=== PATIENT | male | born 1940 | race Caucasian/White ===

== ENCOUNTER → 2019-10-18 13:03 | Outpatient (BNVA) | payer MEDICARE, SELFPAY | PROVIDERS: Family Provider Family Medicine; PCP Family Medicine; Visit Provider Nurse Practitioner | DX: F41.1 Generalized anxiety disorder (principal); F33.42 Major depressive disorder, recurrent, in full remission | CPT/HCPCS: 99213 ==

== ENCOUNTER → 2020-04-03 07:47 | Outpatient (BNVA) | payer MEDICARE, SELFPAY | PROVIDERS: Family Provider Family Medicine; PCP Family Medicine; Visit Provider Nurse Practitioner | DX: F33.42 Major depressive disorder, recurrent, in full remission (principal); F41.1 Generalized anxiety disorder | CPT/HCPCS: 99213 ==

== ENCOUNTER → 2020-10-01 07:51 | Outpatient (BNVA) | payer MEDICARE, SELFPAY | PROVIDERS: Family Provider Family Medicine; PCP Family Medicine; Visit Provider Nurse Practitioner | DX: F33.42 Major depressive disorder, recurrent, in full remission (principal); F41.1 Generalized anxiety disorder | CPT/HCPCS: 99213 ==

== ENCOUNTER → 2021-03-20 08:13 | Outpatient (BNVA) | payer MEDICARE, SELFPAY | PROVIDERS: Family Provider Family Medicine; PCP Family Medicine; Visit Provider Nurse Practitioner | DX: F33.42 Major depressive disorder, recurrent, in full remission (principal); F41.1 Generalized anxiety disorder | CPT/HCPCS: 99214 ==

== ENCOUNTER → 2021-05-14 12:36 | Outpatient (BNVA) | payer MEDICARE, SELFPAY | PROVIDERS: Family Provider Family Medicine; PCP Family Medicine; Visit Provider Nurse Practitioner | DX: G62.9 Polyneuropathy, unspecified (principal); R29.898 Other symptoms and signs involving the musculoskeletal system; F41.1 Generalized anxiety disorder | CPT/HCPCS: 36415; 82550; 82607; 82746; 83921; 84260; 84443; 86140; 86431; 99204 ==

== ENCOUNTER 2021-05-14 13:51 | Outpatient (CLI) | payer MEDICARE, SELFPAY ==
[2021-05-14 15:46] LABS: C Reactive Protein 2.7 mg/L (0.0-4.9); Creatine Phosphokinase 71 U/L (39-308)
[2021-05-14 19:14] LABS: Vitamin B12 > 2000 pg/mL (232-1245)
[2021-05-14 21:11] LABS: Folate Level > 20.0 ng/mL (4.5-32.2)
[2021-05-17 16:02] LABS: Methylmalonic Acid 110 nmol/L (87-318)
== END 2021-05-14 13:52 | disposition home or self-care (01) ==
LOC: LAB 13:57
PROVIDERS: PCP Family Medicine; Visit Provider Nurse Practitioner
DX: G62.9 Polyneuropathy, unspecified (principal); R29.898 Other symptoms and signs involving the musculoskeletal system
CPT/HCPCS: 36415; 82550; 82607; 82746; 83921; 84260; 84443; 86140; 86431

== ENCOUNTER 2021-05-16 14:01 | Outpatient (CLI) | payer MEDICARE, SELFPAY ==
[2021-05-16 15:40] LABS: Erythrocyte Sedimentation Rate 10 mm/hr (0-10)
== END 2021-05-16 14:02 | disposition home or self-care (01) ==
LOC: LAB 14:10
PROVIDERS: PCP Family Medicine; Visit Provider Nurse Practitioner
DX: G62.9 Polyneuropathy, unspecified (principal); R29.898 Other symptoms and signs involving the musculoskeletal system
CPT/HCPCS: 85651

== ENCOUNTER → 2021-09-11 08:43 | Outpatient (BNVA) | payer MEDICARE, SELFPAY | PROVIDERS: PCP Family Medicine; Visit Provider Nurse Practitioner | DX: F41.1 Generalized anxiety disorder (principal); F33.42 Major depressive disorder, recurrent, in full remission | CPT/HCPCS: 99214 ==

== ENCOUNTER 2021-09-29 15:17 | Emergency (ER) | payer MEDICARE, SELFPAY ==
[2021-09-29 16:02] VITALS: BP 125/73; PULSE 68; RESP 16; TEMP 36.8; O2SAT 93; BMI 31.7
--- NOTE | 2021-09-29 16:23 | ED_ITS ---
Documented by User: LOY Sandra 09/30/21 07:03 HPI - Eye Problem General: Chief complaint: Eye Problems Stated complaint: L EYE SWELLING & BURNING/SENT FROM Time Seen by Provider: 09/29/21 16:08 Source: patient Mode of arrival: ambulatory Limitations: no limitations History of Present Illness: HPI Narrative: Patient is a nice 81-year-old male presents to ED today for evaluation of redness to his left eye. Patient states symptoms have been present over the past 2 weeks or so. He was initially seen by his PCP Dr. Garcia who placed him on ophthalmic abx drops. Patient was seen again for follow-up and was not improving. Dr. Botello sent patient to the ED for concerns of possible periorbital cellulitis. Patient states he is having some slight discomfort to the eye but states it is not painful (although mentions some pain in the mornings). No foreign body sensation. He has noticed mucopurulent matting in the mornings. No visual changes. No trauma. Patient is not a contact lens wearer. No facial lesions/rashes. MD chief complaint: eye redness Onset (ago): day(s) Onset description: gradual Place: home Mechanism: none Associated symptoms: Reports no associated symptoms; Denies fever(s), headache(s) or neck pain Related Data: Patient tetanus UTD: Yes Review of Systems Const: Denies: fever(s), chills, body aches, fatigue or malaise Eyes: Reports: eye discomfort, eye discharge and eye redness; Denies: change in vision, blind spots, photophobia, floaters or seeing flashes ENMT: Denies: throat pain, ear or mastoid pain, ear discharge, change in hearing, nasal discharge, nasal congestion or sinus pain Musc: Denies: neck pain Skin/Breast: Denies: rash Neuro: Denies: headache(s) PFSH ED PFSH: Medical History Generalized anxiety disorder Major depressive disorder, recurrent, in full remission Weakness of lower extremity Social History Smoking and tobacco status: never smoked Alcohol intake: never History of recent travel: No Physical Exam Const: COMMON NORMALS: no acute distress, patient oriented x3, no limitations, healthy appearing and alert GENERAL APPEARANCE: cooperative HENMT: COMMON NORMALS: normocephalic and atraumatic HEAD & SCALP: normal to inspection, normocephalic and atraumatic FACE & SINUS: normal facial exam Eye: COMMON NORMALS: Equal, round and reactive pupils present and EOMs intact bilaterally GENERAL EYE: normal light reflex VISUAL ACUITY: Yes acuity normal ALIGNMENT: Yes alignment normal PERIORBITAL: periorbital findings normal EYELID: eyelids normal CONJUNCTIVA: Yes conjunctival abnormal positive left conjunctival chemosis and conjunctival injection CORNEA: Yes fluorescein used and other (corneal lesions visualized ) PUPIL: Yes Equal, round and reactive pupils present DIRECT OPHTHALMOSCOPY: Yes normal light reflex OTHER: mucopurulent drainage noted; patient has multiple (three) obvious opacities on his cornea that are readily visible without fluorescein stain; stain was used at end of exam and these lesions did exhibit stain uptake- no dendritic or branching pattern; no hypopyon or hyphema Neuro: COMMON NORMALS: patient oriented x3 SENSORIUM/ORIENTATION: Yes alert Course Vital Signs: Vital signs: Vital Signs Temperature 98.3 F 09/29/21 16:02 Pulse Rate 68 09/29/21 16:02 Respiratory Rate 16 09/29/21 16:02 Blood Pressure 125/73 09/29/21 16:02 Pulse Oximetry 93 09/29/21 16:02 MDM - Eye Problem Lab Data: Labs: Lab Results 09/29/21 17:00 Sodium 137 mmol/L mmol/L (136-145) Potassium 4.7 mmol/L mmol/L (3.5-5.1) Chloride 100 mmol/L mmol/L (98-107) Carbon Dioxide 28 mmol/L mmol/L (22-29) Anion Gap 13.7 (5-19) BUN 10 mg/dL mg/dL (8-23) Creatinine 0.7 mg/dL mg/dL (0.7-1.2) GFR Calculation Not Reportable Glucose 132 mg/dL H mg/dL (65-115) Calculated Osmolal ity 285 mOsm/kg mOsm/ kg (285-295) Calcium 8.8 mg/dL mg/dL (8.5-10.5) Discharge Plan Discharge Patient Disposition: Home Clinical Impression: Keratitis Condition: Stable Prescriptions: New TobraDex 0.3-0.1 % drops,suspension 1 drp ophthalmic (eye) Q6H 7 Days Qty: 10 RF: 0 No Action clonazepam [Klonopin] 0.5 mg tablet 0.5 mg PO BID PRN (Reason: anxiety) Qty: 60 RF: 5 paroxetine HCl [Paxil] 40 mg tablet 40 mg PO QAM Qty: 30 RF: 5 mirtazapine [Remeron] 30 mg tablet 30 mg PO .at bed Qty: 30 RF: 5 paroxetine HCl [Paxil] 10 mg tablet 10 mg PO DAILY Qty: 30 RF: 5 hydroxyzine HCl 50 mg tablet 50 mg PO TID PRN (Reason: anxiety) Qty: 90 RF: 5 nadolol 20 mg tablet 20 mg PO DAILY RF: 0 amlodipine 5 mg tablet 5 mg PO DAILY RF: 0 metformin 500 mg tablet 1,000 mg PO DAILY RF: 0 polymyxin B sulf-trimethoprim 10,000 unit- 1 mg/mL drops 1 drp ophthalmic (eye) Q3H 10 Days Qty: 10 RF: 1 gabapentin 300 mg capsule 300 mg PO TID Qty: 90 RF: 2 Discharge Orders: Discharge ED (Routine); Ordered 09/29/21 Ordered By: Memo Acosta Referrals: Jaswinder Sorensen MD [Primary Care Provider] - Discharge Diet: Regular Discharge Activity: Resume usual activity Patient Instructions: Antibiotic/Anti-inflammatory Combinations (Into the eye)..., Keratitis (ED) Activity Restrictions/Additional Instructions: Follow-up with medical provider as directed. Contact [facility] on October 06 and have them see you that day for further evaluation. If you have any pain or worsening of symptoms after using new prescription, I drop stopped taking eyedrops immediately and can contact [employer] Dr. Yusuf for evaluation. take medications as prescribed. Return to the ER or your medical provider if condition worsens. Please read and understand discharge instructions. Thank you for choosing [facility] for your healthcare needs today. Please realize this is an emergency room and that we are providing you with a medical screening exam and this may not be complete and all inclusive of all the testing and or work up that you may need to determine your ailment or severity of your illness. It is very important that you follow up as instructed or that you return to the Emergency Department should you have concerns or if your condition changes or worsens in any way. Sign Out Sign Out Data: Patient Sign Out occurred on 09/29/21 at 17:23. Patient's care was discussed, and care was transferred from to LOY Wang. Coding Level of Care Code ED Tool Grinding Machine Operator for Chg Fwd Exam Expanded Problem Focused Documented by User: LOY Wang 09/30/21 02:22 HPI - Eye Problem General: Chief complaint: Eye Problems Stated complaint: L EYE SWELLING & BURNING/SENT FROM Time Seen by Provider: 09/29/21 16:08 [facility] ED PFSH: Medical History Generalized anxiety disorder Major depressive disorder, recurrent, in full remission Weakness of lower extremity Social History Smoking and tobacco status: never smoked Alcohol intake: never History of recent travel: No Course Consultations: Consultation #1: I contacted Grabiel the physician workforce development assistant for [facility]. I told him about patient case. He recommended switching patient to an eyedrop that has an antibiotic and a steroid, Such as tobramycin. He said that they will be back at the [facility] on Wednesday, October 06 and he would be glad to see patient then. Vital Signs: Vital signs: Vital Signs Temperature 98.3 F 09/29/21 16:02 Pulse Rate 68 09/29/21 16:02 Respiratory Rate 16 09/29/21 16:02 Blood Pressure 125/73 09/29/21 16:02 Pulse Oximetry 93 09/29/21 16:02 MDM - Eye Problem MDM Narrative: Medical decision making narrative: Patient is a 81-year-old male comes to the ED with left eye redness and mucopurulent drainage. Denies any injury, trauma or foreign body. Denies any vision changes. Symptoms started 2 weeks ago when he was put on a polymyxin trymethoprin and after using eyedrops there is no improvement. Patient was sent by his PCP Dr. Garcia to have CT of iodine. Candida Dong the physician workforce development assistant saw patient initially and performed the history, physical exam and work-up. Exam of eyes showed some visible lesions did exhibit stain uptake but no branching or dendritic pattern noted. Findings were suggestive of keratitis. Labs were unremarkable. CT orbit bilaterally with contrast showed no acute findings. I contacted Grabiel the physician workforce development assistant for [facility] and spoke with him about patient case. He recommended switching patient to an eyedrop that has an antibiotic and a steroid such as TobraDex. He told me to have patient follow-up with him at [facility] on October 06. Patient diagnosed with keratitis and sent home with a prescription for TobraDex. Return to ED precautions given. Patient understood agree with plan. Lab Data: Attestation: I reviewed the patient's lab results. Labs: Lab Results 09/29/21 17:00 Sodium 137 mmol/L mmol/L (136-145) Potassium 4.7 mmol/L mmol/L (3.5-5.1) Chloride 100 mmol/L mmol/L (98-107) Carbon Dioxide 28 mmol/L mmol/L (22-29) Anion Gap 13.7 (5-19) BUN 10 mg/dL mg/dL (8-23) Creatinine 0.7 mg/dL mg/dL (0.7-1.2) GFR Calculation Not Reportable Glucose 132 mg/dL H mg/dL (65-115) Calculated Osmolal ity 285 mOsm/kg mOsm/ kg (285-295) Calcium 8.8 mg/dL mg/dL (8.5-10.5) Imaging Data^: Other CT: Attestation: I personally reviewed and interpreted this imaging study as follows: Radiologist's impression: [address] [address] [address] Scan Report Signed Patient: Juan Carlos Velázquez Unit #: [id number] : 1940 Age/Sex: 81 / M ADM Date: 09/29/21 Loc: ER Room/Bed: Attending Dr: Ordering Provider/Ordering MD: Candida Dong Date of Service: 09/29/21 Procedure(s): CT orbit BI w siva [id number] Accession Number(s): [id number] Report Number: [id number] PROCEDURE INFORMATION: Exam: CT Orbits With Contrast Exam date and time: 09/29/2021 4:30 PM Age: 81 years old Clinical indication: Mass, lump, or swelling; Other: Left orbit; Additional info: L eye redness/swelling TECHNIQUE: Imaging protocol: Computed tomography images of the orbits with intravenous contrast. Radiation optimization: All CT scans at this facility use at least one of these dose optimization techniques: automated exposure control; mA and/or kV adjustment per patient size (includes targeted exams where dose is matched to clinical indication); or iterative reconstruction. Contrast material: OMNI 300; Contrast volume: 95 ml; Contrast route: INTRAVENOUS (IV); COMPARISON: No relevant prior studies available. RADIATION DOSE METRICS: Total DLP (mGy-cm): 380.35 FINDINGS: Orbital cavity: Orbits are normal. Globes are unremarkable. Paranasal sinuses: Normal. No air-fluid levels. Bones/joints: No acute fracture. Soft tissues: No significant facial soft tissue swelling. CT/[place] [id number] IMPRESSION: No acute findings. Dictated By: Zaki Preston Signed By: Zaki Preston Signed Date/Time: 09/29/21 1909 DD/ 1630 Discharge Plan Discharge Patient Disposition: Home Clinical Impression: Keratitis Condition: Stable Prescriptions: New TobraDex 0.3-0.1 % drops,suspension 1 drp ophthalmic (eye) Q6H 7 Days Qty: 10 RF: 0 No Action clonazepam [Klonopin] 0.5 mg tablet 0.5 mg PO BID PRN (Reason: anxiety) Qty: 60 RF: 5 paroxetine HCl [Paxil] 40 mg tablet 40 mg PO QAM Qty: 30 RF: 5 mirtazapine [Remeron] 30 mg tablet 30 mg PO .at bed Qty: 30 RF: 5 paroxetine HCl [Paxil] 10 mg tablet 10 mg PO DAILY Qty: 30 RF: 5 hydroxyzine HCl 50 mg tablet 50 mg PO TID PRN (Reason: anxiety) Qty: 90 RF: 5 nadolol 20 mg tablet 20 mg PO DAILY RF: 0 amlodipine 5 mg tablet 5 mg PO DAILY RF: 0 metformin 500 mg tablet 1,000 mg PO DAILY RF: 0 polymyxin B sulf-trimethoprim 10,000 unit- 1 mg/mL drops 1 drp ophthalmic (eye) Q3H 10 Days Qty: 10 RF: 1 gabapentin 300 mg capsule 300 mg PO TID Qty: 90 RF: 2 Discharge Orders: Discharge ED (Routine); Ordered 09/29/21 Ordered By: Memo Acosta Referrals: Jaswinder Sorensen MD [Primary Care Provider] - Discharge Diet: Regular Discharge Activity: Resume usual activity Patient Instructions: Antibiotic/Anti-inflammatory Combinations (Into the eye)..., Keratitis (ED) Activity Restrictions/Additional Instructions: Follow-up with medical provider as directed. Contact [facility] on October 06 and have them see you that day for further evaluation. If you have any pain or worsening of symptoms after using new prescription, I drop stopped taking eyedrops immediately and can contact [facility] [facility] Dr. Yusuf for evaluation. take medications as prescribed. Return to the ER or your medical provider if condition worsens. Please read and understand discharge instructions. Thank you for choosing [facility] for your healthcare needs today. Please realize this is an emergency room and that we are providing you with a medical screening exam and this may not be complete and all inclusive of all the testing and or work up that you may need to determine your ailment or severity of your illness. It is very important that you follow up as instructed or that you return to the Emergency Department should you have concerns or if your condition changes or worsens in any way. Sign Out Sign Out Data: Patient Sign Out occurred on 09/29/21 at 17:23. Patient's care was discussed, and care was transferred from to LOY Wang. Coding Level of Care Code ED Tool Grinding Machine Operator for Chg Fwd Exam Expanded Problem Focused Documented by User: Tico Earl DO 09/30/21 10:13 HPI - Eye Problem General: Chief complaint: Eye Problems Stated complaint: L EYE SWELLING & BURNING/SENT FROM Time Seen by Provider: 09/29/21 16:08 [facility] ED PFSH: Medical History Generalized anxiety disorder Major depressive disorder, recurrent, in full remission Weakness of lower extremity Social History Smoking and tobacco status: never smoked Alcohol intake: never History of recent travel: No Course Vital Signs: Vital signs: Vital Signs Temperature 98.3 F 09/29/21 16:02 Pulse Rate 68 09/29/21 16:02 Respiratory Rate 16 09/29/21 16:02 Blood Pressure 125/73 09/29/21 16:02 Pulse Oximetry 93 09/29/21 16:02 MDM - Eye Problem MDM Narrative: Medical decision making narrative: Chart reviewed and patient discussed with midlevel. Agree with assessment and plan. Lab Data: Labs: Lab Results 09/29/21 17:00 Sodium 137 mmol/L mmol/L (136-145) Potassium 4.7 mmol/L mmol/L (3.5-5.1) Chloride 100 mmol/L mmol/L (98-107) Carbon Dioxide 28 mmol/L mmol/L (22-29) Anion Gap 13.7 (5-19) BUN 10 mg/dL mg/dL (8-23) Creatinine 0.7 mg/dL mg/dL (0.7-1.2) GFR Calculation Not Reportable Glucose 132 mg/dL H mg/dL (65-115) Calculated Osmolal ity 285 mOsm/kg mOsm/ kg (285-295) Calcium 8.8 mg/dL mg/dL (8.5-10.5) Discharge Plan Discharge Patient Disposition: Home Clinical Impression: Keratitis Condition: Stable Prescriptions: New TobraDex 0.3-0.1 % drops,suspension 1 drp ophthalmic (eye) Q6H 7 Days Qty: 10 RF: 0 No Action clonazepam [Klonopin] 0.5 mg tablet 0.5 mg PO BID PRN (Reason: anxiety) Qty: 60 RF: 5 paroxetine HCl [Paxil] 40 mg tablet 40 mg PO QAM Qty: 30 RF: 5 mirtazapine [Remeron] 30 mg tablet 30 mg PO .at bed Qty: 30 RF: 5 paroxetine HCl [Paxil] 10 mg tablet 10 mg PO DAILY Qty: 30 RF: 5 hydroxyzine HCl 50 mg tablet 50 mg PO TID PRN (Reason: anxiety) Qty: 90 RF: 5 nadolol 20 mg tablet 20 mg PO DAILY RF: 0 amlodipine 5 mg tablet 5 mg PO DAILY RF: 0 metformin 500 mg tablet 1,000 mg PO DAILY RF: 0 polymyxin B sulf-trimethoprim 10,000 unit- 1 mg/mL drops 1 drp ophthalmic (eye) Q3H 10 Days Qty: 10 RF: 1 gabapentin 300 mg capsule 300 mg PO TID Qty: 90 RF: 2 Discharge Orders: Discharge ED (Routine); Ordered 09/29/21 Ordered By: Memo Acosta Referrals: Jaswinder Sorensen MD [Primary Care Provider] - Discharge Diet: Regular Discharge Activity: Resume usual activity Patient Instructions: Antibiotic/Anti-inflammatory Combinations (Into the eye)..., Keratitis (ED) Activity Restrictions/Additional Instructions: Follow-up with medical provider as directed. Contact [facility] on October 06 and have them see you that day for further evaluation. If you have any pain or worsening of symptoms after using new prescription, I drop stopped taking eyedrops immediately and can contact [employer] [facility] Dr. Yusuf for evaluation. take medications as prescribed. Return to the ER or your medical provider if condition worsens. Please read and understand discharge instructions. Thank you for choosing [facility] for your healthcare needs today. Please realize this is an emergency room and that we are providing you with a medical screening exam and this may not be complete and all inclusive of all the testing and or work up that you may need to determine your ailment or severity of your illness. It is very important that you follow up as instructed or that you return to the Emergency Department should you have concerns or if your condition changes or worsens in any way. Sign Out Sign Out Data: Patient Sign Out occurred on 09/29/21 at 17:23. Patient's care was discussed, and care was transferred from to LOY Wang. Coding Level of Care Code ED Tool Grinding Machine Operator for Lenore Fwd Exam Expanded Problem Focused
--- NOTE | 2021-09-29 16:30 | CTR_ITS ---
PROCEDURE INFORMATION: Exam: CT Orbits With Contrast Exam date and time: 09/29/2021 4:30 PM Age: 81 years old Clinical indication: Mass, lump, or swelling; Other: Left orbit; Additional info: L eye redness/swelling TECHNIQUE: Imaging protocol: Computed tomography images of the orbits with intravenous contrast. Radiation optimization: All CT scans at this facility use at least one of these dose optimization techniques: automated exposure control; mA and/or kV adjustment per patient size (includes targeted exams where dose is matched to clinical indication); or iterative reconstruction. Contrast material: OMNI 300; Contrast volume: 95 ml; Contrast route: INTRAVENOUS (IV); COMPARISON: No relevant prior studies available. RADIATION DOSE METRICS: Total DLP (mGy-cm): 380.35 FINDINGS: Orbital cavity: Orbits are normal. Globes are unremarkable. Paranasal sinuses: Normal. No air-fluid levels. Bones/joints: No acute fracture. Soft tissues: No significant facial soft tissue swelling. CT/CT orbit w [facility] [id number] IMPRESSION: No acute findings.
[2021-09-29] MEDS: tetracaine 0.5% Op Soln 4 mL Btl 1 DROP EYE-LEFT (17:05)
[2021-09-29] MEDS: fluorescein 1 mg Strip EYE-LEFT (17:05)
[2021-09-29] MEDS: eye irrigation 30 mL Btl EYE-LEFT (17:05)
[2021-09-29 17:25] LABS: Anion Gap 13.7 (5-19); Blood Urea Nitrogen 10 mg/dL (8-23); Calcium 8.8 mg/dL (8.5-10.5); Carbon Dioxide 28 mmol/L (22-29); Chloride 100 mmol/L (98-107); Creatinine Clr Calc Pharmacy 84.8217; Glucose 132 mg/dL (65-115); Osmolality Calculated 285 mOsm/kg (285-295); Potassium 4.7 mmol/L (3.5-5.1); Sodium 137 mmol/L (136-145)
[2021-09-29] MEDS: iohexol 300 mg/mL 100 mL Btl IV (18:38)
== END 2021-09-29 19:36 | disposition home or self-care (01) ==
PROVIDERS: Physician Assistant; Emergency Provider Physician Assistant; PCP Family Medicine
DX: H16.9 Unspecified keratitis (principal); Z79.84 Long term (current) use of oral hypoglycemic drugs
CPT/HCPCS: 70481; 80048; 99283; Q9967

== ENCOUNTER → 2021-11-04 07:59 | Outpatient (BNVA) | payer MEDICARE, SELFPAY | PROVIDERS: PCP Family Medicine; Referring Provider Nurse Practitioner; Visit Provider Specialist | DX: D47.2 Monoclonal gammopathy (principal); G63 Polyneuropathy in diseases classified elsewhere | CPT/HCPCS: 95886; 95909; 99215 ==

== ENCOUNTER 2021-11-12 12:50 | Outpatient (CLI) | payer MEDICARE, SELFPAY ==
[2021-11-13 11:12] LABS: CREATININE, 24 HOUR URINE 1.07 g/24 h (0.50-2.15); PROTEIN, TOTAL, 24 HR UR 135 mg/24 h (<150); Protein/Creatinine Ratio 0.127 (< OR = 0.114); Protein/Creatinine Ratio 127 mg/g creat (< OR = 114)
[2021-11-14 09:07] LABS: ALBUMIN 100 %; ALPHA-1-GLOBULINS 0 %; ALPHA-2-GLOBULINS 0 %; BETA GLOBULINS 0 %; GAMMA GLOBULINS 0 %
== END 2021-11-12 12:51 | disposition home or self-care (01) ==
PROVIDERS: PCP Family Medicine; Visit Provider Specialist
DX: D72.9 Disorder of white blood cells, unspecified (principal)
CPT/HCPCS: 84156; 84166

== ENCOUNTER → 2022-02-10 15:06 | Outpatient (BNVA) | payer MEDICARE, SELFPAY | PROVIDERS: PCP Family Medicine; Visit Provider Specialist | DX: D47.2 Monoclonal gammopathy (principal); E11.40 Type 2 diabetes mellitus with diabetic neuropathy, unspecified; Z79.84 Long term (current) use of oral hypoglycemic drugs | CPT/HCPCS: 99215 ==

== ENCOUNTER → 2022-02-12 07:37 | Outpatient (BNVA) | payer MEDICARE, SELFPAY | PROVIDERS: PCP Family Medicine; Visit Provider Specialist | DX: G61.81 Chronic inflammatory demyelinating polyneuritis (principal); E11.9 Type 2 diabetes mellitus without complications; Z79.84 Long term (current) use of oral hypoglycemic drugs | CPT/HCPCS: 99213; 99214 ==

== ENCOUNTER → 2022-03-05 07:21 | Outpatient (BNVA) | payer MEDICARE, SELFPAY | PROVIDERS: PCP Family Medicine; Visit Provider Nurse Practitioner | DX: F41.1 Generalized anxiety disorder (principal); F33.42 Major depressive disorder, recurrent, in full remission | CPT/HCPCS: 99214 ==

== ENCOUNTER → 2023-04-20 15:24 | Outpatient (BNVA) | payer MEDICARE, SELFPAY | PROVIDERS: PCP Family Medicine; Visit Provider Specialist | DX: G61.81 Chronic inflammatory demyelinating polyneuritis (principal); D47.2 Monoclonal gammopathy | CPT/HCPCS: 99214 ==

== ENCOUNTER 2023-06-03 08:35 | Oncology outpatient (recurring) (ONCR) | payer MEDICARE, SELFPAY | END 2023-06-03 23:59 | disposition home or self-care (01) | PROVIDERS: PCP Family Medicine; Visit Provider Specialist | DX: Z53.9 Procedure and treatment not carried out, unspecified reason (principal) ==

== ENCOUNTER → 2023-06-11 10:12 | Outpatient (BNVA) | payer MEDICARE, SELFPAY | PROVIDERS: PCP Family Medicine; Referring Provider Specialist; Visit Provider Specialist | DX: G61.81 Chronic inflammatory demyelinating polyneuritis (principal); D47.2 Monoclonal gammopathy; G63 Polyneuropathy in diseases classified elsewhere | CPT/HCPCS: 99214 ==

== ENCOUNTER 2023-06-15 10:00 | Oncology outpatient (recurring) (ONCR) | payer MEDICARE, SELFPAY ==
[2023-06-14] VITALS (7 sets, daily range): BP systolic 106–127; BP diastolic 56–62; PULSE 59–78; RESP 16–20; TEMP 35.9–36.2; O2SAT 92–94
[2023-06-14] MEDS: acetaminophen 500 mg Tablet 1000 MG PO (09:38)
[2023-06-14] MEDS: diphenhydrAMINE 25 mg Capsule PO (09:38)
[2023-06-14] MEDS: sodium chloride 0.9% 250 ML 100 ML IV (09:47)
[2023-06-14] MEDS: immune globulin (Privigen ONC) 40 GM in empty flexible container 1 EACH IV (09:48)
[2023-06-14 09:55] LABS: Basophils # 0.1 10^3/uL (0.0-0.1); Eosinophils # 0.2 10^3/uL (0.0-0.8); Eosinophils % 2.5 %; Hematocrit 45.7 % (37-53); Lymphocytes # 2.9 10^3/uL (0.8-4.8); Lymphocytes % 40.3 %; Mean Corpuscular HGB Conc 31.5 g/dL (30-55); Mean Corpuscular Hemoglobin 27.7 pg (27-33); Mean Corpuscular Volume 87.9 fl (82-101); Mean Platelet Volume 10.2 fL (7.4-10.4); Monocytes # 0.8 10^3/uL (0.2-0.9); Monocytes % 10.7 %; Neutrophils # 3.21 10^3/uL (1.8-7.7); Neutrophils % 45.2 %; Nucleated Red Blood Cells % 0 %; Platelet Count 228 10^3/cmm (157-399)
[2023-06-14 12:32] LABS: Alanine Aminotransferase 44 U/L (0-41); Albumin Level 4.1 g/dL (3.5-5.2); Alkaline Phosphatase 108 U/L (40-130); Anion Gap 16.7 (5-19); Aspartate Amino Transferase 30 U/L (0-40); Blood Urea Nitrogen 14 mg/dL (8-23); Calcium 8.9 mg/dL (8.5-10.5); Carbon Dioxide 23 mmol/L (22-29); Chloride 100 mmol/L (98-107); Glucose 148 mg/dL (65-115); Osmolality Calculated 283 mOsm/kg (285-295); Potassium 4.7 mmol/L (3.5-5.1); Sodium 135 mmol/L (136-145); Total Bilirubin 0.5 mg/dL (0.15-1.2); Total Protein 8.1 g/dL (6.6-8.7)
[2023-06-15 09:00] VITALS: BP 128/63; PULSE 94; RESP 18; TEMP 36.6; O2SAT 97
[2023-06-15] MEDS: immune globulin (Privigen ONC) 40 GM in empty flexible container 1 EACH IV (09:54)
[2023-06-15 10:15] VITALS: BP 128/60; PULSE 96; RESP 16; TEMP 35.9; O2SAT 93
[2023-06-15 10:45] VITALS: BP 117/61; PULSE 66; RESP 16; TEMP 36.2; O2SAT 91
[2023-06-15 11:00] VITALS: BP 117/63; PULSE 66; RESP 16; TEMP 36.4; O2SAT 91
[2023-06-15 11:15] VITALS: BP 116/58; PULSE 64; RESP 16; TEMP 36.1; O2SAT 94
[2023-06-15 11:55] VITALS: BP 119/67; PULSE 62; RESP 16; TEMP 36.2; O2SAT 94
== END 2023-06-15 23:59 | disposition home or self-care (01) ==
PROVIDERS: PCP Family Medicine; Visit Provider Specialist
DX: G61.81 Chronic inflammatory demyelinating polyneuritis (principal)
CPT/HCPCS: 80053; 85025; 96365; 96366; J1459; J7050

== ENCOUNTER 2023-06-17 10:00 | Oncology outpatient (recurring) (ONCR) | payer MEDICARE, SELFPAY ==
[2023-06-16] MEDS: immune globulin (Privigen ONC) 40 GM in empty flexible container 1 EACH IV (11:11)
[2023-06-16 11:15] VITALS: BP 122/75; PULSE 67; RESP 18; TEMP 36.6; O2SAT 99
[2023-06-16 11:30] VITALS: BP 112/70; PULSE 64; RESP 18; TEMP 35.7; O2SAT 93
[2023-06-16 11:45] VITALS: BP 117/73; PULSE 64; RESP 18; TEMP 35.8; O2SAT 92
[2023-06-16 12:00] VITALS: BP 122/76; PULSE 63; RESP 17; TEMP 36.1
[2023-06-16 13:10] VITALS: BP 133/80; PULSE 94; RESP 18; TEMP 36.1; O2SAT 99
[2023-06-17] VITALS (8 sets, daily range): BP systolic 114–143; BP diastolic 58–73; PULSE 58–71; RESP 16–17; TEMP 36.2–36.6; O2SAT 90–95; BMI 30.2
[2023-06-17] MEDS: sodium chloride 0.9% 250 ML 75 ML IV (11:42)
[2023-06-17] MEDS: immune globulin (Privigen ONC) 40 GM in empty flexible container 1 EACH IV (11:55)
== END 2023-06-17 23:59 | disposition home or self-care (01) ==
PROVIDERS: PCP Family Medicine; Visit Provider Specialist
DX: G61.81 Chronic inflammatory demyelinating polyneuritis (principal)
CPT/HCPCS: 96365; 96366; J1459; J7050

== ENCOUNTER 2023-06-18 07:28 | Oncology outpatient (recurring) (ONCR) | payer MEDICARE, SELFPAY ==
[2023-06-18] VITALS (11 sets, daily range): BP systolic 96–148; BP diastolic 56–80; PULSE 55–546; RESP 16–18; TEMP 35.7–36.3; O2SAT 90–92
[2023-06-18] MEDS: sodium chloride 0.9% 250 ML 35 ML IV (08:45)
[2023-06-18] MEDS: immune globulin (Privigen ONC) 40 GM in empty flexible container 1 EACH IV (08:50)
== END 2023-07-03 23:59 | disposition home or self-care (01) ==
PROVIDERS: PCP Family Medicine; Visit Provider Specialist
DX: G61.81 Chronic inflammatory demyelinating polyneuritis (principal); Z53.9 Procedure and treatment not carried out, unspecified reason
CPT/HCPCS: 96365; 96366; J1459; J7050

== ENCOUNTER → 2023-09-10 08:28 | Outpatient (BNVA) | payer MEDICARE, SELFPAY | PROVIDERS: PCP Family Medicine; Visit Provider Specialist | DX: G61.81 Chronic inflammatory demyelinating polyneuritis (principal) | CPT/HCPCS: 99214 ==

== ENCOUNTER → 2024-03-03 10:18 | Outpatient (BNVA) | payer MEDICARE, SELFPAY | PROVIDERS: PCP Family Medicine; Visit Provider Specialist | DX: G61.81 Chronic inflammatory demyelinating polyneuritis (principal) | CPT/HCPCS: 99215 ==

== ENCOUNTER 2024-03-30 14:30 | Oncology outpatient (recurring) (ONCR) | payer MEDICARE, SELFPAY ==
[2024-03-28 15:41] VITALS: BP 121/69; PULSE 70; RESP 16; O2SAT 93
[2024-03-28] MEDS: methylPREDNISolone sod succ 1,000 MG in sodium chloride 0.9% 250 ML 500 MG IV (15:44)
[2024-03-28 16:48] VITALS: BP 136/77; PULSE 82; RESP 16; TEMP 36.2; O2SAT 94
[2024-03-29 14:29] VITALS: BP 118/69; PULSE 87; RESP 16; O2SAT 91
[2024-03-29] MEDS: methylPREDNISolone sod succ 1,000 MG in sodium chloride 0.9% 250 ML 258 MG IV (14:52)
[2024-03-29 16:33] VITALS: BP 111/76; PULSE 69; RESP 16; TEMP 36.8; O2SAT 94
[2024-03-30 14:16] VITALS: BP 137/76; PULSE 76; RESP 18; TEMP 36.4; O2SAT 94
[2024-03-30] MEDS: methylPREDNISolone sod succ 1,000 MG in sodium chloride 0.9% 250 ML 258 MG IV (15:11)
[2024-03-30 16:45] VITALS: BP 134/84; PULSE 66; RESP 17; TEMP 36.1; O2SAT 95
== END 2024-04-02 23:59 | disposition home or self-care (01) ==
PROVIDERS: PCP Family Medicine; Visit Provider Specialist
DX: G61.81 Chronic inflammatory demyelinating polyneuritis (principal); Z53.9 Procedure and treatment not carried out, unspecified reason
CPT/HCPCS: 96365; J2919; J7050

== ENCOUNTER 2024-05-02 12:30 | Oncology outpatient (recurring) (ONCR) | payer MEDICARE, SELFPAY ==
[2024-04-04 14:16] VITALS: BP 130/78; PULSE 73; RESP 16; TEMP 36.9; O2SAT 97
[2024-04-04] MEDS: methylPREDNISolone sod succ 1,000 MG in sodium chloride 0.9% 250 ML 250 MG IV (14:40)
[2024-04-04 15:55] VITALS: BP 126/79; PULSE 63; RESP 16; O2SAT 95
[2024-04-11 14:07] VITALS: BP 124/72; PULSE 74; RESP 18; O2SAT 94
[2024-04-11] MEDS: methylPREDNISolone sod succ 1,000 MG in sodium chloride 0.9% 250 ML 250 MG IV (14:37)
[2024-04-11 15:54] VITALS: BP 146/84; PULSE 62; RESP 16; TEMP 36.2; O2SAT 97
[2024-04-18] MEDS: methylPREDNISolone sod succ 1,000 MG in sodium chloride 0.9% 250 ML 250 MG IV (14:38)
[2024-04-18 14:47] VITALS: BP 109/68; PULSE 80; RESP 18; TEMP 36.6; O2SAT 98
[2024-04-18 15:54] VITALS: BP 111/66; PULSE 71; RESP 17; O2SAT 94
[2024-04-25 12:41] VITALS: BP 127/81; PULSE 74; RESP 17; TEMP 36.2; O2SAT 97
[2024-04-25] MEDS: methylPREDNISolone sod succ 1,000 MG in sodium chloride 0.9% 250 ML 250 MG IV (12:41)
[2024-04-25 14:15] VITALS: BP 150/83; PULSE 65; RESP 18; TEMP 35.7; O2SAT 98
[2024-05-02 12:32] VITALS: BP 130/75; PULSE 107; RESP 18; TEMP 36.3; O2SAT 92
[2024-05-02] MEDS: methylPREDNISolone sod succ 1,000 MG in sodium chloride 0.9% 250 ML 250 MG IV (12:57)
[2024-05-02 14:25] VITALS: BP 152/78; PULSE 100; RESP 17; TEMP 36.6; O2SAT 92
== END 2024-05-03 23:59 | disposition home or self-care (01) ==
PROVIDERS: PCP Family Medicine; Visit Provider Specialist
DX: Z53.9 Procedure and treatment not carried out, unspecified reason (principal); G61.81 Chronic inflammatory demyelinating polyneuritis; Z79.899 Other long term (current) drug therapy
CPT/HCPCS: 96365; J2919; J7050

== ENCOUNTER 2024-06-06 08:17 | Oncology outpatient (recurring) (ONCR) | payer MEDICARE, SELFPAY ==
[2024-05-09 12:04] VITALS: BP 105/63; PULSE 60; RESP 18; TEMP 36.3; O2SAT 93
[2024-05-09] MEDS: methylPREDNISolone sod succ 1,000 MG in sodium chloride 0.9% 250 ML 250 MG IV (13:04)
[2024-05-09 14:16] VITALS: BP 106/65; PULSE 60; RESP 18; TEMP 36.1; O2SAT 92
[2024-05-16 11:50] VITALS: BP 127/78; PULSE 71; RESP 16; TEMP 36.3; O2SAT 94
[2024-05-16 12:27] LABS: Anion Gap 14.6 (5-19); Blood Urea Nitrogen 11 mg/dL (8-23); Calcium 9.5 mg/dL (8.5-10.5); Carbon Dioxide 27 mmol/L (22-29); Chloride 102 mmol/L (98-107); Glucose 170 mg/dL (65-115); Osmolality Calculated 291 mOsm/kg (285-295); Potassium 4.6 mmol/L (3.5-5.1); Sodium 139 mmol/L (136-145)
[2024-05-16] MEDS: methylPREDNISolone sod succ 1,000 MG in sodium chloride 0.9% 250 ML 250 MG IV (12:36)
[2024-05-16 13:50] VITALS: BP 106/65; PULSE 64; RESP 16; TEMP 36.5; O2SAT 92
[2024-05-23 12:00] VITALS: BP 109/64; PULSE 59; RESP 16; TEMP 36.3; O2SAT 90
[2024-05-23 12:32] LABS: Anion Gap 14.8 (5-19); Blood Urea Nitrogen 9 mg/dL (8-23); Calcium 8.8 mg/dL (8.5-10.5); Carbon Dioxide 27 mmol/L (22-29); Chloride 106 mmol/L (98-107); Glucose 191 mg/dL (65-115); Osmolality Calculated 300 mOsm/kg (285-295); Potassium 4.8 mmol/L (3.5-5.1); Sodium 143 mmol/L (136-145)
[2024-05-23] MEDS: methylPREDNISolone sod succ 1,000 MG in sodium chloride 0.9% 250 ML 250 MG IV (12:50)
[2024-05-23 14:01] VITALS: BP 106/65; PULSE 65; TEMP 36.5; O2SAT 93
[2024-05-30 10:38] LABS: Anion Gap 16.4 (5-19); Blood Urea Nitrogen 14 mg/dL (8-23); Calcium 9.3 mg/dL (8.5-10.5); Carbon Dioxide 27 mmol/L (22-29); Chloride 101 mmol/L (98-107); Glucose 242 mg/dL (65-115); Osmolality Calculated 298 mOsm/kg (285-295); Potassium 4.4 mmol/L (3.5-5.1); Sodium 140 mmol/L (136-145)
[2024-05-30 10:53] VITALS: BP 123/72; PULSE 70; RESP 17; TEMP 35.9; O2SAT 92
[2024-05-30] MEDS: methylPREDNISolone sod succ 1,000 MG in sodium chloride 0.9% 250 ML 250 MG IV (10:58)
[2024-05-30 12:15] VITALS: BP 104/66; PULSE 72; RESP 17; TEMP 36; O2SAT 93
[2024-06-06 08:09] VITALS: BP 138/75; PULSE 83; RESP 18; TEMP 35.7; O2SAT 95
[2024-06-06 09:09] LABS: Anion Gap 21.4 (5-19); Blood Urea Nitrogen 14 mg/dL (8-23); Calcium 10.1 mg/dL (8.5-10.5); Carbon Dioxide 26 mmol/L (22-29); Chloride 98 mmol/L (98-107); Creatinine Clr Calc Pharmacy 77.8873; Glucose 276 mg/dL (65-115); Osmolality Calculated 302 mOsm/kg (285-295); Potassium 4.4 mmol/L (3.5-5.1); Sodium 141 mmol/L (136-145)
[2024-06-06] MEDS: methylPREDNISolone sod succ 1,000 MG in sodium chloride 0.9% 250 ML 250 MG IV (09:09)
[2024-06-06 10:20] VITALS: BP 122/67; PULSE 72; RESP 17; TEMP 36.1; O2SAT 95
== END 2024-06-06 23:59 | disposition home or self-care (01) ==
PROVIDERS: PCP Family Medicine; Visit Provider Specialist
DX: Z53.9 Procedure and treatment not carried out, unspecified reason (principal)
CPT/HCPCS: 80048; 96365; 99213; 99214; J2919; J7050

== ENCOUNTER 2024-06-20 12:30 | Oncology outpatient (recurring) (ONCR) | payer MEDICARE, SELFPAY ==
--- NOTE | 2024-06-12 13:18 | PC.NURSE ---
New order for Efgartigimod gerardo [id number]. No diagnosis on the order. Called Dr. Hearn office, spoke with nurse Yara, verbal order for diagnosis G61.81.
[2024-06-20 13:00] VITALS: BP 129/72; PULSE 61; RESP 17; TEMP 36.7; O2SAT 92
[2024-06-20 13:31] VITALS: BP 112/78; PULSE 78; RESP 18; TEMP 36.6; O2SAT 94
[2024-06-20] MEDS: [UNRECOGNIZED DRUG - OTHER] 1008 MG SUBCUT (13:31)
== END 2024-06-20 23:59 | disposition home or self-care (01) ==
PROVIDERS: PCP Family Medicine; Visit Provider Specialist
DX: G61.81 Chronic inflammatory demyelinating polyneuritis (principal); Z79.899 Other long term (current) drug therapy; Z53.9 Procedure and treatment not carried out, unspecified reason
CPT/HCPCS: 80048; 96365; 96372; J2919; J7050; J9334

== ENCOUNTER 2024-06-27 12:34 | Oncology outpatient (recurring) (ONCR) | payer MEDICARE, SELFPAY ==
[2024-06-27 12:39] VITALS: BP 116/67; PULSE 60; RESP 18; TEMP 36.1; O2SAT 91
[2024-06-27] MEDS: [UNRECOGNIZED DRUG - OTHER] 1008 MG SUBCUT (13:05)
[2024-06-27 13:10] VITALS: BP 124/78; PULSE 74; RESP 18; TEMP 36.6; O2SAT 98
== END 2024-06-27 23:59 | disposition home or self-care (01) ==
LOC: ONCMED 12:34
PROVIDERS: PCP Family Medicine; Visit Provider Specialist
DX: G61.81 Chronic inflammatory demyelinating polyneuritis (principal); Z79.899 Other long term (current) drug therapy
CPT/HCPCS: 96401; J9334

== ENCOUNTER 2024-07-04 12:28 | Oncology outpatient (recurring) (ONCR) | payer MEDICARE, SELFPAY ==
[2024-07-04] MEDS: [UNRECOGNIZED DRUG - OTHER] 1008 MG SUBCUT (13:13)
[2024-07-04 13:25] VITALS: BP 110/67; PULSE 63; RESP 17; TEMP 36.4; O2SAT 93
== END 2024-07-04 23:59 | disposition home or self-care (01) ==
PROVIDERS: PCP Family Medicine; Visit Provider Specialist
DX: G61.81 Chronic inflammatory demyelinating polyneuritis (principal); Z79.899 Other long term (current) drug therapy
CPT/HCPCS: 96372; J9334

== ENCOUNTER 2024-07-11 12:21 | Oncology outpatient (recurring) (ONCR) | payer MEDICARE, SELFPAY ==
[2024-07-11 12:35] VITALS: BP 113/64; PULSE 76; RESP 16; TEMP 36.1; O2SAT 94
[2024-07-11] MEDS: [UNRECOGNIZED DRUG - OTHER] 1008 MG SUBCUT (13:05)
== END 2024-07-11 23:59 | disposition home or self-care (01) ==
LOC: ONCMED 12:21
PROVIDERS: PCP Family Medicine; Visit Provider Specialist
DX: G61.81 Chronic inflammatory demyelinating polyneuritis (principal); Z79.899 Other long term (current) drug therapy
CPT/HCPCS: 96372; J9334

== ENCOUNTER 2024-07-18 12:21 | Oncology outpatient (recurring) (ONCR) | payer MEDICARE, SELFPAY ==
[2024-07-18] MEDS: [UNRECOGNIZED DRUG - OTHER] 1008 MG SUBCUT (12:57)
[2024-07-18 13:21] VITALS: BP 107/63; PULSE 65; RESP 18; TEMP 36.4; O2SAT 90
[2024-07-18 13:22] VITALS: BP 104/63; PULSE 62; RESP 18; TEMP 36.6; O2SAT 90
== END 2024-07-18 23:59 | disposition home or self-care (01) ==
PROVIDERS: PCP Family Medicine; Visit Provider Specialist
DX: G61.81 Chronic inflammatory demyelinating polyneuritis (principal); Z79.899 Other long term (current) drug therapy
CPT/HCPCS: J9334

== ENCOUNTER 2024-07-25 11:49 | Oncology outpatient (recurring) (ONCR) | payer MEDICARE, SELFPAY ==
[2024-07-25 12:02] VITALS: BP 133/71; PULSE 68; TEMP 36.6; O2SAT 92
[2024-07-25] MEDS: [UNRECOGNIZED DRUG - OTHER] 1008 MG SUBCUT (13:07)
[2024-07-25 13:18] VITALS: BP 104/61; PULSE 63; RESP 17; TEMP 36.3; O2SAT 92
== END 2024-07-25 23:59 | disposition home or self-care (01) ==
LOC: ONCMED 11:49
PROVIDERS: PCP Family Medicine; Visit Provider Specialist
DX: G61.81 Chronic inflammatory demyelinating polyneuritis (principal); Z79.899 Other long term (current) drug therapy
CPT/HCPCS: 96372; J9334

== ENCOUNTER 2024-08-01 11:57 | Oncology outpatient (recurring) (ONCR) | payer MEDICARE, SELFPAY ==
[2024-08-01 12:02] VITALS: BP 132/89; PULSE 102; RESP 17; TEMP 36; O2SAT 91
[2024-08-01] MEDS: [UNRECOGNIZED DRUG - OTHER] 1008 MG SUBCUT (12:37)
[2024-08-01 12:53] VITALS: BP 114/85; PULSE 100; RESP 17; O2SAT 97
== END 2024-08-01 23:59 | disposition home or self-care (01) ==
LOC: ONCMED 11:57
PROVIDERS: PCP Family Medicine; Visit Provider Specialist
DX: G61.81 Chronic inflammatory demyelinating polyneuritis (principal); Z79.899 Other long term (current) drug therapy
CPT/HCPCS: 96372; J9334

== ENCOUNTER 2024-08-08 11:52 | Oncology outpatient (recurring) (ONCR) | payer MEDICARE, SELFPAY ==
[2024-08-08 11:59] VITALS: BP 132/81; PULSE 66; RESP 16; TEMP 36.2; O2SAT 92
[2024-08-08] MEDS: [UNRECOGNIZED DRUG - OTHER] 1008 MG SUBCUT (12:22)
[2024-08-08 12:40] VITALS: BP 115/72; PULSE 82; RESP 18; TEMP 35.7; O2SAT 95
== END 2024-08-08 23:59 | disposition home or self-care (01) ==
LOC: ONCMED 11:53
PROVIDERS: PCP Family Medicine; Visit Provider Specialist
DX: G61.81 Chronic inflammatory demyelinating polyneuritis (principal); Z79.899 Other long term (current) drug therapy
CPT/HCPCS: 96372; J9334

== ENCOUNTER 2024-08-15 11:52 | Oncology outpatient (recurring) (ONCR) | payer MEDICARE, SELFPAY ==
[2024-08-15 12:04] VITALS: BP 114/75; PULSE 66; RESP 17; TEMP 35.9; O2SAT 92
[2024-08-15] MEDS: [UNRECOGNIZED DRUG - OTHER] 1008 MG SUBCUT (12:25)
== END 2024-08-15 23:59 | disposition home or self-care (01) ==
LOC: ONCMED 11:52
PROVIDERS: PCP Family Medicine; Visit Provider Specialist
DX: G61.81 Chronic inflammatory demyelinating polyneuritis (principal); Z79.899 Other long term (current) drug therapy
CPT/HCPCS: 96372; J9334

== ENCOUNTER 2024-08-22 11:50 | Oncology outpatient (recurring) (ONCR) | payer MEDICARE, SELFPAY ==
[2024-08-22] MEDS: [UNRECOGNIZED DRUG - OTHER] 1008 MG SUBCUT (12:59)
[2024-08-22 13:12] VITALS: BP 113/72; PULSE 65; RESP 17; TEMP 35.8; O2SAT 90
== END 2024-08-22 23:59 | disposition home or self-care (01) ==
LOC: ONCMED 11:50
PROVIDERS: PCP Family Medicine; Visit Provider Specialist
DX: G61.81 Chronic inflammatory demyelinating polyneuritis (principal); Z79.899 Other long term (current) drug therapy
CPT/HCPCS: 96402; J9334

== ENCOUNTER 2024-08-29 12:01 | Oncology outpatient (recurring) (ONCR) | payer MEDICARE, SELFPAY ==
[2024-08-29] MEDS: [UNRECOGNIZED DRUG - OTHER] 1008 MG SUBCUT (12:49)
[2024-08-29 13:00] VITALS: BP 119/71; PULSE 74; RESP 18; TEMP 36.6; O2SAT 92
== END 2024-08-29 23:51 | disposition home or self-care (01) ==
LOC: ONCMED 12:01
PROVIDERS: PCP Family Medicine; Visit Provider Specialist
DX: G61.81 Chronic inflammatory demyelinating polyneuritis (principal); Z79.899 Other long term (current) drug therapy
CPT/HCPCS: 96402; J9334

== ENCOUNTER 2024-09-05 13:04 | Oncology outpatient (recurring) (ONCR) | payer MEDICARE, SELFPAY ==
[2024-09-05] MEDS: [UNRECOGNIZED DRUG - OTHER] 1008 MG SUBCUT (13:44)
[2024-09-05 13:55] VITALS: BP 124/78; PULSE 74; RESP 18; TEMP 36.6; O2SAT 98
== END 2024-09-05 23:59 | disposition home or self-care (01) ==
PROVIDERS: PCP Family Medicine; Visit Provider Specialist
DX: G61.81 Chronic inflammatory demyelinating polyneuritis (principal); Z79.899 Other long term (current) drug therapy
CPT/HCPCS: 96402; J9334

== ENCOUNTER → 2024-09-07 15:08 | Outpatient (BNVA) | payer MEDICARE, SELFPAY | PROVIDERS: PCP Family Medicine; Visit Provider Specialist | DX: G61.81 Chronic inflammatory demyelinating polyneuritis (principal); D47.2 Monoclonal gammopathy; G63 Polyneuropathy in diseases classified elsewhere | CPT/HCPCS: 99214; 99215 ==

== ENCOUNTER 2024-09-12 11:55 | Oncology outpatient (recurring) (ONCR) | payer MEDICARE, SELFPAY ==
[2024-09-12 12:20] VITALS: BP 147/84; PULSE 66; RESP 17; TEMP 36.6; O2SAT 90
[2024-09-12] MEDS: [UNRECOGNIZED DRUG - OTHER] 1008 MG SUBCUT (12:33)
[2024-09-12 12:39] VITALS: BP 115/70; PULSE 64; RESP 18; TEMP 36.6; O2SAT 98
[2024-09-12 13:08] LABS: Basophils % 0.7 %; Eosinophils # 0.1 10^3/uL (0.0-0.8); Eosinophils % 1.7 %; Hematocrit 45.7 % (37-53); Lymphocytes # 1.8 10^3/uL (0.8-4.8); Lymphocytes % 32.6 %; Mean Corpuscular HGB Conc 31.1 g/dL (30-55); Mean Corpuscular Hemoglobin 27.8 pg (27-33); Mean Corpuscular Volume 89.4 fl (82-101); Mean Platelet Volume 9.8 fL (7.4-10.4); Monocytes # 0.5 10^3/uL (0.2-0.9); Monocytes % 9.1 %; Neutrophils # 2.99 10^3/uL (1.8-7.7); Neutrophils % 55.7 %; Nucleated Red Blood Cells % 0 %; Platelet Count 234 10^3/cmm (157-399); Red Blood Count 5.11 10^6/uL (3.85-5.65); Red Cell Distribution Width 11.9 % (12.1-15.1); White Blood Count 5.37 10^3/uL (3.29-11.43)
[2024-09-12 13:10] VITALS: BP 142/74; PULSE 60; RESP 18; TEMP 36.4; O2SAT 90
[2024-09-12 13:27] LABS: Alanine Aminotransferase 34 U/L (0-41); Albumin Level 4.6 g/dL (3.5-5.2); Alkaline Phosphatase 112 U/L (40-130); Anion Gap 15.4 (5-19); Aspartate Amino Transferase 31 U/L (0-40); Blood Urea Nitrogen 9 mg/dL (8-23); Calcium 9.7 mg/dL (8.5-10.5); Carbon Dioxide 30 mmol/L (22-29); Chloride 100 mmol/L (98-107); Creatine Phosphokinase 55 U/L (39-308); Globulin 2.4 g/dL (1.3-4.6); Glucose 193 mg/dL (65-115); Osmolality Calculated 296 mOsm/kg (285-295); Potassium 4.4 mmol/L (3.5-5.1); Sodium 141 mmol/L (136-145); Total Bilirubin 0.2 mg/dL (0.15-1.2)
[2024-09-16 22:18] LABS: Immunofixation Serum Normal pattern.
== END 2024-09-12 23:59 | disposition home or self-care (01) ==
LOC: ONCMED 11:55
PROVIDERS: PCP Family Medicine; Visit Provider Specialist
DX: G61.81 Chronic inflammatory demyelinating polyneuritis (principal); Z79.899 Other long term (current) drug therapy; D47.2 Monoclonal gammopathy; G63 Polyneuropathy in diseases classified elsewhere
CPT/HCPCS: 80053; 82550; 85025; 86334; 96402; J9334

== ENCOUNTER 2024-09-19 11:44 | Oncology outpatient (recurring) (ONCR) | payer MEDICARE, SELFPAY ==
[2024-09-19] MEDS: [UNRECOGNIZED DRUG - OTHER] 1008 MG SUBCUT (12:47)
[2024-09-19 13:05] VITALS: BP 120/78; PULSE 72; RESP 18; TEMP 36.8; O2SAT 98
== END 2024-09-19 23:59 | disposition home or self-care (01) ==
PROVIDERS: PCP Family Medicine; Visit Provider Specialist
DX: G61.81 Chronic inflammatory demyelinating polyneuritis (principal); Z79.899 Other long term (current) drug therapy
CPT/HCPCS: 96401; J9334

== ENCOUNTER 2024-09-28 12:19 | Oncology outpatient (recurring) (ONCR) | payer MEDICARE, SELFPAY ==
[2024-09-28 13:51] VITALS: BP 137/77; PULSE 64; RESP 14; TEMP 36.4; O2SAT 93
[2024-09-28] MEDS: [UNRECOGNIZED DRUG - OTHER] 1008 MG SUBCUT (14:43)
[2024-09-28 14:50] VITALS: BP 124/72; PULSE 78; RESP 18; TEMP 36.6; O2SAT 98
== END 2024-09-28 23:59 | disposition home or self-care (01) ==
LOC: ONCMED 12:20
PROVIDERS: PCP Family Medicine; Visit Provider Specialist
DX: G61.81 Chronic inflammatory demyelinating polyneuritis (principal); Z79.899 Other long term (current) drug therapy
CPT/HCPCS: 96402; J9334

== ENCOUNTER 2024-10-03 12:43 | Oncology outpatient (recurring) (ONCR) | payer MEDICARE, SELFPAY ==
[2024-10-03] MEDS: [UNRECOGNIZED DRUG - OTHER] 1008 MG SUBCUT (13:10)
[2024-10-03 13:15] VITALS: BP 128/78; PULSE 78; RESP 17; TEMP 36.6; O2SAT 90
== END 2024-10-03 23:59 | disposition home or self-care (01) ==
PROVIDERS: PCP Family Medicine; Visit Provider Specialist
DX: G61.81 Chronic inflammatory demyelinating polyneuritis (principal); Z79.899 Other long term (current) drug therapy; Z53.9 Procedure and treatment not carried out, unspecified reason; Z79.52 Long term (current) use of systemic steroids
CPT/HCPCS: 96372; J9334

== ENCOUNTER 2024-10-10 12:38 | Oncology outpatient (recurring) (ONCR) | payer MEDICARE, SELFPAY ==
[2024-10-10 11:55] VITALS: BP 122/78; PULSE 76; RESP 17; TEMP 36.6; O2SAT 98
[2024-10-10] MEDS: [UNRECOGNIZED DRUG - OTHER] 1008 MG SUBCUT (12:30)
[2024-10-10 12:36] VITALS: BP 119/71; PULSE 61; RESP 17; O2SAT 94
== END 2024-10-10 23:59 | disposition home or self-care (01) ==
PROVIDERS: PCP Family Medicine; Visit Provider Specialist
DX: G61.81 Chronic inflammatory demyelinating polyneuritis (principal); Z79.899 Other long term (current) drug therapy; Z53.9 Procedure and treatment not carried out, unspecified reason
CPT/HCPCS: 96402; J9334

== ENCOUNTER 2024-10-17 11:27 | Oncology outpatient (recurring) (ONCR) | payer MEDICARE, SELFPAY ==
[2024-10-17 11:44] VITALS: BP 116/72; PULSE 57; RESP 16; TEMP 36.9; O2SAT 95
[2024-10-17] MEDS: [UNRECOGNIZED DRUG - OTHER] 1008 MG SUBCUT (12:20)
[2024-10-17 12:50] VITALS: BP 124/78; PULSE 78; RESP 18; TEMP 36.6; O2SAT 92
== END 2024-10-17 23:59 | disposition home or self-care (01) ==
LOC: ONCMED 11:27
PROVIDERS: PCP Family Medicine; Visit Provider Specialist
DX: G61.81 Chronic inflammatory demyelinating polyneuritis (principal); Z79.620 Long term (current) use of immunosuppressive biologic
CPT/HCPCS: 96372; J9334

== ENCOUNTER 2024-10-25 11:32 | Oncology outpatient (recurring) (ONCR) | payer MEDICARE, SELFPAY ==
[2024-10-25 11:40] VITALS: BP 157/79; PULSE 87; RESP 16; TEMP 36.1; O2SAT 96
[2024-10-25] MEDS: [UNRECOGNIZED DRUG - OTHER] 1008 MG SUBCUT (12:04)
== END 2024-10-25 23:59 | disposition home or self-care (01) ==
LOC: ONCMED 11:32
PROVIDERS: PCP Family Medicine; Visit Provider Specialist
DX: G61.81 Chronic inflammatory demyelinating polyneuritis (principal); Z79.899 Other long term (current) drug therapy
CPT/HCPCS: 96372; J9334

== ENCOUNTER 2024-10-31 12:09 | Oncology outpatient (recurring) (ONCR) | payer MEDICARE, SELFPAY ==
[2024-10-31 13:00] VITALS: BP 123/78; PULSE 87; RESP 18; TEMP 36.6; O2SAT 98
[2024-10-31] MEDS: [UNRECOGNIZED DRUG - OTHER] 1008 MG SUBCUT (13:00)
[2024-10-31 13:20] VITALS: TEMP 36.4
== END 2024-10-31 23:59 | disposition home or self-care (01) ==
PROVIDERS: PCP Family Medicine; Visit Provider Specialist
DX: G61.81 Chronic inflammatory demyelinating polyneuritis (principal); Z79.899 Other long term (current) drug therapy
CPT/HCPCS: 96402; J9334

== ENCOUNTER 2024-11-07 11:51 | Oncology outpatient (recurring) (ONCR) | payer MEDICARE, SELFPAY ==
[2024-11-07] MEDS: [UNRECOGNIZED DRUG - OTHER] 1008 MG SUBCUT (12:43)
== END 2024-11-07 23:59 | disposition home or self-care (01) ==
PROVIDERS: PCP Family Medicine; Visit Provider Specialist
DX: G61.81 Chronic inflammatory demyelinating polyneuritis (principal); Z79.899 Other long term (current) drug therapy
CPT/HCPCS: 96372; J9334

== ENCOUNTER → 2024-11-08 13:32 | Outpatient (BNVA) | payer MEDICARE, SELFPAY | PROVIDERS: PCP Family Medicine; Visit Provider Specialist | DX: G61.81 Chronic inflammatory demyelinating polyneuritis (principal); D47.2 Monoclonal gammopathy; G63 Polyneuropathy in diseases classified elsewhere | CPT/HCPCS: 99213 ==

== ENCOUNTER 2024-11-14 12:03 | Oncology outpatient (recurring) (ONCR) | payer MEDICARE, SELFPAY ==
[2024-11-14] MEDS: [UNRECOGNIZED DRUG - OTHER] 1008 MG SUBCUT (13:00)
[2024-11-14 14:38] VITALS: BP 101/68; PULSE 78; RESP 17; TEMP 36.6; O2SAT 92
== END 2024-11-14 23:59 | disposition home or self-care (01) ==
LOC: ONCMED 12:03
PROVIDERS: PCP Family Medicine; Visit Provider Specialist
DX: G61.81 Chronic inflammatory demyelinating polyneuritis (principal); Z79.899 Other long term (current) drug therapy
CPT/HCPCS: 96402; J9334

== ENCOUNTER 2024-11-20 12:02 | Oncology outpatient (recurring) (ONCR) | payer MEDICARE, SELFPAY ==
[2024-11-20] MEDS: [UNRECOGNIZED DRUG - OTHER] 1008 MG SUBCUT (13:05)
[2024-11-20 13:47] VITALS: BP 99/63; PULSE 66; RESP 16; TEMP 36.8; O2SAT 94
== END 2024-11-20 23:59 | disposition home or self-care (01) ==
LOC: ONCMED 12:02
PROVIDERS: PCP Family Medicine; Visit Provider Specialist
DX: G61.81 Chronic inflammatory demyelinating polyneuritis (principal); Z79.899 Other long term (current) drug therapy; Z53.9 Procedure and treatment not carried out, unspecified reason; Z79.52 Long term (current) use of systemic steroids
CPT/HCPCS: 96372; 96374; J9334

== ENCOUNTER 2024-11-28 12:34 | Oncology outpatient (recurring) (ONCR) | payer MEDICARE, SELFPAY ==
[2024-11-28 13:25] VITALS: BP 121/78; PULSE 78; RESP 18; TEMP 36.6; O2SAT 92
[2024-11-28 13:28] VITALS: BP 110/68; PULSE 68; RESP 18; TEMP 36.6; O2SAT 90
[2024-11-28] MEDS: [UNRECOGNIZED DRUG - OTHER] 1008 MG SUBCUT (13:32)
== END 2024-11-28 23:59 | disposition home or self-care (01) ==
PROVIDERS: PCP Family Medicine; Visit Provider Specialist
DX: G61.81 Chronic inflammatory demyelinating polyneuritis (principal); Z79.899 Other long term (current) drug therapy
CPT/HCPCS: 96402; J9334

== ENCOUNTER 2024-12-05 11:54 | Oncology outpatient (recurring) (ONCR) | payer MEDICARE, SELFPAY ==
[2024-12-05 12:19] VITALS: BP 116/69; PULSE 75; RESP 17; TEMP 36.7; O2SAT 97
[2024-12-05] MEDS: [UNRECOGNIZED DRUG - OTHER] 1008 MG SUBCUT (12:54)
[2024-12-05 13:01] VITALS: BP 112/66; PULSE 72; RESP 16; TEMP 36.6; O2SAT 96
== END 2024-12-05 23:59 | disposition home or self-care (01) ==
PROVIDERS: PCP Family Medicine; Visit Provider Specialist
DX: G61.81 Chronic inflammatory demyelinating polyneuritis (principal); Z79.899 Other long term (current) drug therapy
CPT/HCPCS: 96372; 96374; J9334

== ENCOUNTER 2024-12-14 12:31 | Oncology outpatient (recurring) (ONCR) | payer MEDICARE, SELFPAY ==
[2024-12-14 12:43] VITALS: BP 120/74; PULSE 64; RESP 18; TEMP 36.3; O2SAT 92
[2024-12-14] MEDS: [UNRECOGNIZED DRUG - OTHER] 1008 MG SUBCUT (13:06)
[2024-12-14 13:10] VITALS: BP 124/78; PULSE 74; RESP 18; TEMP 36.6; O2SAT 98
== END 2024-12-14 23:59 | disposition home or self-care (01) ==
LOC: ONCMED 12:31
PROVIDERS: PCP Family Medicine; Visit Provider Specialist
DX: G61.81 Chronic inflammatory demyelinating polyneuritis (principal); Z79.899 Other long term (current) drug therapy
CPT/HCPCS: 96401; J9334

== ENCOUNTER 2024-12-19 11:53 | Oncology outpatient (recurring) (ONCR) | payer MEDICARE, SELFPAY ==
[2024-12-19] MEDS: [UNRECOGNIZED DRUG - OTHER] 1008 MG SUBCUT (13:31)
[2024-12-19 13:39] VITALS: BP 113/66; PULSE 66; RESP 16; TEMP 36.7; O2SAT 96
== END 2024-12-19 23:59 | disposition home or self-care (01) ==
LOC: ONCMED 11:54
PROVIDERS: PCP Family Medicine; Visit Provider Specialist
DX: G61.81 Chronic inflammatory demyelinating polyneuritis (principal); Z79.899 Other long term (current) drug therapy
CPT/HCPCS: 96372; J9334

== ENCOUNTER 2024-12-26 11:41 | Oncology outpatient (recurring) (ONCR) | payer MEDICARE, SELFPAY ==
[2024-12-26 11:51] VITALS: BP 131/67
[2024-12-26] MEDS: [UNRECOGNIZED DRUG - OTHER] 1008 MG SUBCUT (12:28)
== END 2024-12-26 23:59 | disposition home or self-care (01) ==
PROVIDERS: PCP Family Medicine; Visit Provider Specialist
DX: G61.81 Chronic inflammatory demyelinating polyneuritis (principal); Z79.899 Other long term (current) drug therapy
CPT/HCPCS: 96372; J9334

== ENCOUNTER 2025-01-01 11:17 | Inpatient (IN) | payer MEDICARE, SELFPAY ==
[2025-01-01 11:26] VITALS: BP 156/78; PULSE 98; RESP 17; TEMP 36.7; O2SAT 94
--- NOTE | 2025-01-01 11:28 | CT_ITS ---
WS: [id number] CT HEAD NONCONTRAST HISTORY: Symptoms of acute stroke TECHNIQUE: Contiguous axial imaging performed through the brain. Bone and soft tissue windows. Sagittal and coronal reformats reviewed. All CT scans at [facility] use at least one of these dose optimization techniques: automated exposure control; mA and/or kV adjustment per patient size (includes targeted exams where dose is matched to clinical indication); or iterative reconstruction. DLP: 1110.70 mGy COMPARISON: None available. No acute intracranial hemorrhage, midline shift or mass effect. Mild atrophy and mild small vessel disease. Mild cerebellar atrophy. No prior large infarcts. Ventricles: Mildly prominent ventricles on the basis of atrophy. No inferior displacement of the cerebellar tonsils. Paranasal sinuses: As visualized are clear. Mastoid air cells: Well pneumatized. Calvarium and scalp: Skull is intact with no soft tissue edema or swelling. CT/CT head thrombolytic [id number] IMPRESSION: 1. No acute intracranial hemorrhage or edema. 2. Mild atrophy and small vessel disease. Notified Kim Padilal MD at 01/01/2025 11:51 AM.
--- NOTE | 2025-01-01 11:34 | XR_ITS ---
WS: [id number] XR chest 1V portable [id number] REASON FOR EXAM: weakness FINDINGS: Moderate tortuosity and ectasia of the thoracic aorta. Normal heart size. Calcified granulomatous disease in both hemithoraces. Lungs are hypoexpanded. No acute pulmonary parenchymal or pleural abnormality is identified. Moderate degenerative spondylosis in the thoracic spine. 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 XR/XR chest 1V portable [id number] IMPRESSION: No acute chest abnormality.
--- NOTE | 2025-01-01 11:36 | W.ED.GENADLT ---
HPI - General Adult General: Chief complaint: Weakness Stated complaint: weakness - fall Time Seen by Provider: 01/01/25 11:17 Source: patient and EMS Mode of arrival: EMS Limitations: no limitations History of Present Illness: 84-year-old male states that he has been having right sided weakness since yesterday around 3 to 4 PM. He states he had fell on the floor due to being weak and laid in the floor overnight. He states he had some slight stutter to speak he denies any blurred vision he has no facial droop denies headache denies any injuries or fall Associated symptoms: Deny chest pain, dyspnea, headache(s), nausea, rash or vomiting Related Data Home Medications ?Medication ?Instructions ?Recorded ?Confirmed amlodipine 5 mg tablet 5 mg PO DAILY 05/14/21 01/01/25 nadolol 20 mg tablet 20 mg PO DAILY 05/14/21 01/01/25 metformin 500 mg tablet,extended 1,000 mg PO DAILY 09/07/24 01/01/25 release 24 hr gabapentin 300 mg capsule 300 mg PO TID 01/01/25 01/01/25 baukzhlo-fukuwfuqw-rrjvtqgu 3.5 1 drp ophthalmic (eye) TID 01/01/25 01/01/25 mg/mL-10,000 unit/mL-0.1% eye drops Previous Rx's ?Medication ?Instructions ?Recorded efgartigimod gerardo 1008 5.6 ml SUBCUT Q7D 4 weeks #5.6 mL 05/30/24 yj-xkgpljnt-ozen 11,200 unit/5.6 mL subcut soln (Vyvgart Hytrulo) clonazepam 0.5 mg tablet (Klonopin) 0.5 mg PO BID PRN anxiety #60 tabs 12/20/24 hydroxyzine HCl 50 mg tablet 50 mg PO TID PRN anxiety #90 tabs 12/20/24 mirtazapine 30 mg tablet (Remeron) 30 mg PO .at bed #30 tabs 12/20/24 paroxetine HCl 40 mg tablet (Paxil) 40 mg PO QAM #30 tabs 12/20/24 Allergies Allergy/AdvReac Type Severity Reaction Status Date / Time codeine Allergy Unknown Verified 12/20/24 13:42 Review of Systems Const: Denies: fever(s), chills, body aches or change in appetite Eyes: Denies: blurry vision or eye discomfort ENMT: Denies: throat pain or dental pain Card: Denies: chest pain Resp: Denies: dyspnea GI: Denies: abdominal pain, nausea, vomiting or diarrhea Musc: Denies: neck pain or back pain Skin/Breast: Denies: rash Neuro: Reports: weakness in extremities; Denies: headache(s) Psych: Denies: depression PFSH ED PFSH: Medical History Weakness of lower extremity Major depressive disorder, recurrent, in full remission Generalized anxiety disorder Social History Smoking and tobacco/nicotine status: never used tobacco/nicotine Alcohol intake: never Substance/Drug Use: never Physical Exam Const: COMMON NORMALS: patient oriented x3 HENMT: COMMON NORMALS: normocephalic and atraumatic HEAD & SCALP: normocephalic and atraumatic Eye: COMMON NORMALS: Equal, round and reactive pupils present and EOMs intact bilaterally PUPIL: Yes Equal, round and reactive pupils present Neck/C-Spine: COMMON NORMALS: full ROM and supple Chest: COMMONS NORMALS: normal inspection of the chest Resp: COMMON NORMALS: normal respiratory effort, No retractions, No use of accessory muscles and clear to auscultation bilaterally AUSCULTATION: clear to auscultation bilaterally Cardio: COMMON NORMALS: regular rate, regular rhythm and No murmurs present (Cardio) RATE: regular rate RHYTHM: regular rhythm GI: COMMON NORMALS: Normal to inspection, nondistended, normoactive bowel sounds present, Soft to palpation, non-tender and no masses PALPATION: Yes Soft to palpation Extremity: COMMON NORMALS: normal to inspection and full ROM Neuro: COMMON NORMALS: patient oriented x3, moves all extremities and no focal motor deficits OTHER: Slight drift noted to right arm and leg Psych: COMMON NORMALS: mental status grossly normal, Normal thought process present and cooperative THOUGHT PROCESS: Normal thought process present Skin: COMMON NORMALS: no rashes or lesions noted and no wounds GENERAL SKIN EXAM: no rashes or lesions noted Course Vital Signs: Vital signs: Vital Signs Temperature 98.0 F 01/01/25 11:26 Pulse Rate 98 01/01/25 11:26 Respiratory Rate 17 01/01/25 11:26 Blood Pressure 156/78 01/01/25 11:26 Pulse Oximetry 94 01/01/25 11:26 Oxygen Delivery Me thod Room Air 01/01/25 11:26 MDM - General Adult Medical Decision Making Patient presents here with weakness does have some slight right-sided weakness NIH is 1 last known normal was yesterday at 4 PM he is not a lytic candidate is in rhabdo as well. I spoke to the hospitalist will admit. Lab Data I reviewed the patient's lab results. 01/01/25 11:43 01/01/25 11:[address] 01/01/25 11:28 IMPRESSION: 1. No acute intracranial hemorrhage or edema. 2. Mild atrophy and small vessel disease. Notified Kim Padilla MD at 01/01/2025 11:51 AM. Chest X-Ray 01/01/25 11:34 IMPRESSION: No acute chest abnormality. Laboratory Results WBC 9.60 10^3/uL (3.29-11.43) 01/01/25 11:43 RBC 5.65 10^6/uL (3.85-5.65) 01/01/25 11:43 Hgb 16.00 g/dL (11.27-16.99) 01/01/25 11:43 Hct 49.4 % (37-53) 01/01/25 11:43 MCV 87.4 fl (82-101) 01/01/25 11:43 MCH 28.3 pg (27-33) 01/01/25 11:43 MCHC 32.4 g/dL (30-55) 01/01/25 11:43 RDW 13.5 % (12.1-15.1) 01/01/25 11:43 Plt Count 274 10^3/cmm (157-399) 01/01/25 11:43 MPV 9.8 fL (7.4-10.4) 01/01/25 11:43 Neut % (Auto) 73.6 % 01/01/25 11:43 Lymph % (Auto) 16.5 % 01/01/25 11:43 Alexander % (Auto) 9.2 % 01/01/25 11:43 Eos % (Auto) 0.0 % 01/01/25 11:43 Baso % (Auto) 0.4 % 01/01/25 11:43 Neut # (Auto) 7.07 10^3/uL (1.8-7.7) 01/01/25 11:43 Lymph # (Auto) 1.6 10^3/uL (0.8-4.8) 01/01/25 11:43 Alexander # (Auto) 0.9 10^3/uL (0.2-0.9) 01/01/25 11:43 Eos # (Auto) 0.0 10^3/uL (0.0-0.8) 01/01/25 11:43 Baso # (Auto) 0.0 10^3/uL (0.0-0.1) 01/01/25 11:43 Nucleated RBC % (auto) 0 % 01/01/25 11:43 Nucleated RBCs # 0.0 /100WBC 01/01/25 11:43 PT 12.70 SECONDS (12.1-14.9) 01/01/25 11:43 INR 0.89 (0.8-1.2) 01/01/25 11:43 APTT 27.0 SECONDS (23.9-36.7) 01/01/25 11:43 Sodium 138 mmol/L (136-145) 01/01/25 11:43 Potassium 4.1 mmol/L (3.5-5.1) 01/01/25 11:43 Chloride 95 mmol/L (98-107) L 01/01/25 11:43 Carbon Dioxide 28 mmol/L (22-29) 01/01/25 11:43 Anion Gap 19.1 (5-19) H 01/01/25 11:43 BUN 14 mg/dL (8-23) 01/01/25 11:43 Creatinine 0.8 mg/dL (0.7-1.2) 01/01/25 11:43 GFR Calculation Not Reportable 01/01/25 11:43 Glucose 134 mg/dL (65-115) H 01/01/25 11:43 POC Glucose 182 mg/dL (70-110) H 01/01/25 11:35 Calculated Osmolality 288 mOsm/kg (285-295) 01/01/25 11:43 Calcium 10.3 mg/dL (8.5-10.5) 01/01/25 11:43 Total Bilirubin 0.5 mg/dL (0.15-1.2) 01/01/25 11:43 AST 43 U/L (0-40) H 01/01/25 11:43 ALT 29 U/L (0-41) 01/01/25 11:43 Alkaline Phosphatase 138 U/L (40-130) H 01/01/25 11:43 Creatine Kinase 2422 U/L (39-308) H* 01/01/25 11:43 Total Protein 8.3 g/dL (6.6-8.7) 01/01/25 11:43 Albumin 5.3 g/dL (3.5-5.2) H 01/01/25 11:43 Globulin 3.0 g/dL (1.3-4.6) 01/01/25 11:43 All radiology interpretation(s) finalized by discharge Discharge Plan Discharge Patient Disposition: Admitted As Inpatient Clinical Impression: Weakness, Rhabdomyolysis Condition: Stable Prescriptions: No Action nadolol 20 mg tablet 20 mg PO DAILY amlodipine 5 mg tablet 5 mg PO DAILY Vyvgart Hytrulo 1,008 mg-11,200 unit/5.6 mL solution 5.6 ml SUBCUT Q7D 28 Days Qty: 5.6 12RF Rx Instructions: 1008 mg/94074 units once a week subcu paroxetine HCl [Paxil] 40 mg tablet 40 mg PO QAM Qty: 30 5RF mirtazapine [Remeron] 30 mg tablet 30 mg PO .at bed Qty: 30 5RF clonazepam [Klonopin] 0.5 mg tablet 0.5 mg PO BID PRN (Reason: anxiety) Qty: 60 5RF hydroxyzine HCl 50 mg tablet 50 mg PO TID PRN (Reason: anxiety) Qty: 90 5RF metformin 500 mg tablet extended release 24 hr 1,000 mg PO DAILY neomycin-polymyxin B-dexameth 3.5mg/mL-10,000 unit/mL-0.1 % drops,suspension 1 drp ophthalmic (eye) TID gabapentin 300 mg capsule 300 mg PO TID Rx Instructions: TAKE 1 CAPSULE BY MOUTH THREE TIMES DAILY Referrals: Jaswinder Sorensen MD [Primary Care Provider] - Print Language: Latvian Coding Level of Care Code ED Nursing Manager for Chg Fwd NIH stroke score NIHSS Level Of Consciousness - 1a: 0 Level Of Consciousness Questions - 1b: Both Correct Level Of Consciousness Commands - 1c: Both Correct Best Gaze - 2: Normal Visual Arango - 3: No Visual Loss Facial Palsy - 4: Normal Motor Arm Right - 5: Drift Motor Arm Left - 5: No Drift Motor Leg Right - 6: Drift Motor Leg Left - 6: No Drift Limb Ataxia - 7: Absent Sensory - 8: Normal Best Language - 9: No Aphasia Dysarthia - 10: Normal Extinction And Inattention - 11: 0 Score Total Score: 2
[2025-01-01 11:39] LABS: Glucose Point of Care 182 mg/dL (70-110)
[2025-01-01 11:48] LABS: Basophils % 0.4 %; Hematocrit 49.4 % (37-53); Lymphocytes # 1.6 10^3/uL (0.8-4.8); Lymphocytes % 16.5 %; Mean Corpuscular HGB Conc 32.4 g/dL (30-55); Mean Corpuscular Hemoglobin 28.3 pg (27-33); Mean Corpuscular Volume 87.4 fl (82-101); Mean Platelet Volume 9.8 fL (7.4-10.4); Monocytes # 0.9 10^3/uL (0.2-0.9); Monocytes % 9.2 %; Neutrophils # 7.07 10^3/uL (1.8-7.7); Neutrophils % 73.6 %; Nucleated Red Blood Cells % 0 %; Platelet Count 274 10^3/cmm (157-399); Red Blood Count 5.65 10^6/uL (3.85-5.65); Red Cell Distribution Width 13.5 % (12.1-15.1)
[2025-01-01 12:03] LABS: INR 0.89 (0.8-1.2)
[2025-01-01 12:07] LABS: Alanine Aminotransferase 29 U/L (0-41); Albumin Level 5.3 g/dL (3.5-5.2); Alkaline Phosphatase 138 U/L (40-130); Anion Gap 19.1 (5-19); Aspartate Amino Transferase 43 U/L (0-40); Blood Urea Nitrogen 14 mg/dL (8-23); Calcium 10.3 mg/dL (8.5-10.5); Carbon Dioxide 28 mmol/L (22-29); Chloride 95 mmol/L (98-107); Creatinine Clr Calc Pharmacy 78.2468; Glucose 134 mg/dL (65-115); Osmolality Calculated 288 mOsm/kg (285-295); Potassium 4.1 mmol/L (3.5-5.1); Sodium 138 mmol/L (136-145); Total Bilirubin 0.5 mg/dL (0.15-1.2); Total Protein 8.3 g/dL (6.6-8.7)
--- NOTE | 2025-01-01 12:21 | ECG_ITS ---
[facility]: 2025[facility]01 Pat Name: Juan Carlos Velázquez Department: Room: Gender: Male Developmental Specialist: : [id number] Requested By: Kim Padilla Order Number: [id number] Chio MD: Jacky Silva M.D. Measurements Intervals [place] Rate: 95 P: 248 SD: 126 QRS: -41 QRSD: 98 T: 71 QT: 369 QTc: 465 Interpretive Statements SINUS RHYTHM LEFT AXIS DEVIATION [QRS AXIS < -30] PATTERN CONSISTENT WITH PULMONARY DISEASE SEPTAL MYOCARDIAL INFARCTION , OF INDETERMINATE AGE [40+ ms Q WAVE IN V1/V2] Compared to ECG 07/09/2016 11:37:13 Junctional rhythm now present Left-axis deviation now present Myocardial infarct finding now present Left ventricular hypertrophy no longer present Electronically Signed On 01-06-2025 18:37:16 CDT by Jacky Silva M.D. [email or web address] [id number]
[2025-01-01 12:32] LABS: Creatine Phosphokinase 2422 U/L (39-308)
--- NOTE | 2025-01-01 12:58 | XR_ITS ---
WS: [id number] XR pelvis 1-2V* [id number] REASON FOR EXAM: fall FINDINGS: The bony pelvis is intact without acute fracture. Superior and inferior pubic rami bilaterally are intact. No acute hip fracture identified on the single AP view of the pelvis. 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 XR/XR pelvis 1-2V* [id number] IMPRESSION: No acute abnormality.
[2025-01-01 13:00] VITALS: BP 129/79; PULSE 94; O2SAT 95
[2025-01-01] MEDS: sodium chloride 0.9% 1,000 ML 999 ML IV (13:00)
[2025-01-01 14:00] VITALS: BP 140/78; PULSE 100; O2SAT 96
--- NOTE | 2025-01-01 14:12 | PM.HP ---
Providers/Chief Complaint Admitting Physician: Judy Lauren MD Primary Care Provider: Jaswinder Sorensen MD Chief Complaint: weakness - fall History of Present Illness Juan Carlos Velázquez is a 84 year old male Who presented to the emergency room via EMS due to weakness. He has a history of CIDP with chronic weakness. He has follow-up with Dr. Jon and has been on treatment with Vyvgart. Next dose was actually due tomorrow. At baseline he can walk with a walker and shorter distances without. Does have to rest. He has had some improvement while on treatment. In addition to lower extremity weakness he has also had upper extremity weakness. Right weakness is always a little bit worse than the left but today it is much more prominent than it has been. Family saw him yesterday morning and he seemed to be close to his baseline. He ended up sitting at the table for several hours doing paperwork and later in the afternoon went to get up. He took a few steps and then describes that his right leg gave out. He was able to land in his chair and ended up staying in the chair for several more hours. He was not able to get up after this and walk around. He did scrape his right leg on the chair but no other injuries reported. At 1 point in the evening hours he decided he wanted to lie down and scooted himself to the floor and slump on the floor for the remainder of the night. He continued to be weak when he awakened today and ended up getting to the door, managing to open it and yelling out for his neighbors who found him. Neighbors along with his family keep an eye out for him regularly. In the emergency room he was brought in as a stroke alert. Initial NIH stroke scale score was 2 predominantly for right upper and lower weakness with drift. Mr. Staley continues to have numbness from his CIDP but indicates his paresthesias have not been as bad lately. Nothing new today in that regard. Denies any loss of bowel or bladder function overnight, though did have an accident in the emergency room before staff could assist him. No reports of any fevers, chills, upper respiratory symptoms, nausea, vomiting, chest pain, difficulty breathing. No vision changes. No difficulty swallowing. No headache. No recent bleeding beyond some as expected at site of abrasions to his right leg. Workup in the emergency room revealed significant elevation in CK level at 2400. Request was made for admission to hospitalist service. He did receive fluid boluses in the emergency room. Review of Systems General: Reports: Other (ROS as per HPI or as otherwise noted here) Medications/Allergies Home Medications ?Medication ?Instructions ?Recorded ?Confirmed ?Last Taken ?Type amlodipine 5 mg tablet 5 mg PO DAILY 05/14/21 01/01/25 12/31/24 History nadolol 20 mg tablet 20 mg PO DAILY 05/14/21 01/01/25 12/31/24 History efgartigimod gerardo 1008 5.6 ml SUBCUT Q7D 4 weeks #5.6 mL 05/30/24 01/01/25 Unknown Rx uf-cawtghxb-ajvr 11,200 unit/5.6 mL subcut soln (Vyvgart Hytrulo) metformin 500 mg tablet,extended 1,000 mg PO DAILY 09/07/24 01/01/25 12/31/24 History release 24 hr clonazepam 0.5 mg tablet (Klonopin) 0.5 mg PO BID PRN anxiety #60 tabs 12/20/24 01/01/25 12/31/24 Rx hydroxyzine HCl 50 mg tablet 50 mg PO TID PRN anxiety #90 tabs 12/20/24 01/01/25 12/31/24 Rx mirtazapine 30 mg tablet (Remeron) 30 mg PO .at bed #30 tabs 12/20/24 01/01/25 12/31/24 Rx paroxetine HCl 40 mg tablet (Paxil) 40 mg PO QAM #30 tabs 12/20/24 01/01/25 01/01/25 Rx gabapentin 300 mg capsule 300 mg PO TID 01/01/25 01/01/25 12/31/24 History dtuwdskd-fyjcneofu-mdwakhiw 3.5 1 drp ophthalmic (eye) TID 01/01/25 01/01/25 Unknown History mg/mL-10,000 unit/mL-0.1% eye drops Allergies Allergy/AdvReac Type Severity Reaction Status Date / Time codeine Allergy Unknown Verified 12/20/24 13:42 PFSH Acute PFSH: Medical History (Updated 01/01/25 @ 20:08 by Judy Lauren MD) History of tachycardia on nadol Hypertension Diabetes mellitus, type II 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 Weakness of lower extremity Major depressive disorder, recurrent, in full remission Generalized anxiety disorder Surgical History (Updated 01/01/25 @ 20:26 by Judy Lauren MD) History of repair of left rotator cuff History of cataract surgery left eye Social History (Updated 01/01/25 @ 18:47 by Judy Lauren MD) Smoking and tobacco/nicotine status: never used tobacco/nicotine Alcohol intake: never Substance/Drug Use: never Rebeca/Worship: Restorationism Agree to transfusion: No (and no IVIG or other blood containing products) Vitals/I&O/Wt Last Vital Signs Temp 98.0 F 01/01/25 11:26 Pulse 100 01/01/25 14:00 Resp 17 01/01/25 11:26 BP 140/78 01/01/25 14:00 Pulse Ox 96 01/01/25 14:00 O2 Del Method Room Air 01/01/25 14:00 12/31/24 01/01/25 01/01/25 22:59 06:59 14:59 Intake Total 1000 / 1000 Balance 1000 / 1000 Weight last 48 hrs Weight 91.626 kg Physical Exam Narrative: Patient is awake and alert. Able to provide history. Normocephalic. Extraocular movements are intact. Oropharynx with dry mucous membranes. Neck is supple. Lungs are clear to auscultation bilaterally without any rales rhonchi or wheezes. Cardiovascular exam reveals a regular rate and rhythm. Abdomen is soft, nontender with positive bowel sounds. Extremities are remarkable for abrasions to the right anterior peraza most of which look fairly new. To the left anterior peraza there is a scabbed sore that looks older. No pitting edema. Skin is dry. Some bruising noted to upper extremities. Handgrip is slightly weaker on right than left. Difference in strength is more prominent in the lower extremities with weak foot pump and weak thigh raise on the right. Numbness is in a equal distribution at the feet. Left reflexes easier to elicit than right at the ankles and toes. Toes are equivocal. Speech is clear, face symmetric. Oriented x 3. Skin: NARRATIVE SKIN EXAM: LEFT LEG Data 01/01/25 11:43 01/01/25 11:43 Other Labs: Radiology Impressions Head CT 01/01/25 11:28 IMPRESSION: 1. No acute intracranial hemorrhage or edema. 2. Mild atrophy and small vessel disease. Notified Kim Padilla MD at 01/01/2025 11:51 AM. Chest X-Ray 01/01/25 11:34 IMPRESSION: No acute chest abnormality. Pelvis X-Ray 01/01/25 12:58 IMPRESSION: No acute abnormality. Laboratory Results WBC 9.60 10^3/uL (3.29-11.43) 01/01/25 11:43 RBC 5.65 10^6/uL (3.85-5.65) 01/01/25 11:43 Hgb 16.00 g/dL (11.27-16.99) 01/01/25 11:43 Hct 49.4 % (37-53) 01/01/25 11:43 MCV 87.4 fl (82-101) 01/01/25 11:43 MCH 28.3 pg (27-33) 01/01/25 11:43 MCHC 32.4 g/dL (30-55) 01/01/25 11:43 RDW 13.5 % (12.1-15.1) 01/01/25 11:43 Plt Count 274 10^3/cmm (157-399) 01/01/25 11:43 MPV 9.8 fL (7.4-10.4) 01/01/25 11:43 Neut % (Auto) 73.6 % 01/01/25 11:43 Lymph % (Auto) 16.5 % 01/01/25 11:43 Gregory % (Auto) 9.2 % 01/01/25 11:43 Eos % (Auto) 0.0 % 01/01/25 11:43 Baso % (Auto) 0.4 % 01/01/25 11:43 Neut # (Auto) 7.07 10^3/uL (1.8-7.7) 01/01/25 11:43 Lymph # (Auto) 1.6 10^3/uL (0.8-4.8) 01/01/25 11:43 Gregory # (Auto) 0.9 10^3/uL (0.2-0.9) 01/01/25 11:43 Eos # (Auto) 0.0 10^3/uL (0.0-0.8) 01/01/25 11:43 Baso # (Auto) 0.0 10^3/uL (0.0-0.1) 01/01/25 11:43 Nucleated RBC % (auto) 0 % 01/01/25 11:43 Nucleated RBCs # 0.0 /100WBC 01/01/25 11:43 PT 12.70 SECONDS (12.1-14.9) 01/01/25 11:43 INR 0.89 (0.8-1.2) 01/01/25 11:43 APTT 27.0 SECONDS (23.9-36.7) 01/01/25 11:43 Sodium 138 mmol/L (136-145) 01/01/25 11:43 Potassium 4.1 mmol/L (3.5-5.1) 01/01/25 11:43 Chloride 95 mmol/L (98-107) L 01/01/25 11:43 Carbon Dioxide 28 mmol/L (22-29) 01/01/25 11:43 Anion Gap 19.1 (5-19) H 01/01/25 11:43 BUN 14 mg/dL (8-23) 01/01/25 11:43 Creatinine 0.8 mg/dL (0.7-1.2) 01/01/25 11:43 GFR Calculation Not Reportable 01/01/25 11:43 Glucose 134 mg/dL (65-115) H 01/01/25 11:43 POC Glucose 182 mg/dL (70-110) H 01/01/25 11:35 Calculated Osmolality 288 mOsm/kg (285-295) 01/01/25 11:43 Calcium 10.3 mg/dL (8.5-10.5) 01/01/25 11:43 Total Bilirubin 0.5 mg/dL (0.15-1.2) 01/01/25 11:43 AST 43 U/L (0-40) H 01/01/25 11:43 ALT 29 U/L (0-41) 01/01/25 11:43 Alkaline Phosphatase 138 U/L (40-130) H 01/01/25 11:43 Creatine Kinase 2422 U/L (39-308) H* 01/01/25 11:43 Total Protein 8.3 g/dL (6.6-8.7) 01/01/25 11:43 Albumin 5.3 g/dL (3.5-5.2) H 01/01/25 11:43 Globulin 3.0 g/dL (1.3-4.6) 01/01/25 11:43 Amorphous Sediment Not Reportable 01/01/25 13:57 PRIOR Laboratory Tests 05/14/21 09/12/24 14:38 12:52 Creatine Kinase 71 55 A&P Assessment and plan (1) Rhabdomyolysis: Nontraumatic, present on admission. No prior history of rhabdomyolysis with previous CK levels last year as recently as September 2024. He did sleep on the floor last night which could be the source of muscle breakdown however he was on the floor because he was too weak to get up on his own. He had also spent several hours sitting in a chair yesterday prior to finding himself too weak to get up. Current renal function is stable. - IVFs overnight - Recheck renal function, electrolytes, CK in am - Follow I&Os Qualifiers: Rhabdomyolysis type: non-traumatic Qualified Code(s): M62.82 - Rhabdomyolysis (2) Weakness: Has chronic weakness of both lower extremities. Right has historically been worse than left by history but currently worse than recent baseline. Can usually eat with his right hand but chose to eat with left today due to tax compliance manager weakness along with tremor in both upper arms. Normally can walk around with walker, or short distances without but not since yesterday. Unclear at this time if the rhabdomyolysis is a contributor to or the result of degree of weakness. He does describe his right leg giving out which has not done previously. No loss of bowel or bladder function that might suggest spinal cord lesion. Evaluated for possibility of stroke in the emergency room. Presented outside of window and initial NIH stroke scale score 2 for right upper and lower extremity weakness/drift. Has numbness both legs which is unchanged from baseline but does report decrease in parathesias lately. No injury beyond skin abrasion reported. - PT/OT evaluation when CK levels improve - Given acute process impacting muscles and known CIDP, both contributors to weakness, would benefit from SNF consideration for therapy and monitoring of labs post hospitalization - Serial neuro checks - Aspirin - No statin due to rhabdomyolysis, contraindicated - Check lipid panel (3) CIDP (chronic inflammatory demyelinating polyneuropathy): Followed in the outpatient setting by Dr. Jon. Has been on Vyvgart infusions with some improvement in functional status until acute weakness this weekend. Vyvgart is not known to be associated with rhabomyolysis on review of on line resources. - Discussed the case with Dr. Jon and at this time no further workup or treatment considerations for CIDP aspect of weakness. No indication for steroids. Not a candidate for consideration of IVIG given blood products. Therapy along with continuation of his Vyvgart in outpatient setting are his current management options. (4) Hypertension: Chronically on amlodipine - Continuing home dosing Qualifiers: Hypertension type: primary hypertension Qualified Code(s): I10 - Essential (primary) hypertension (5) History of tachycardia: Chronically on nadolol due to history of fast heart rate, details unknown. He has been on this medication since at least 2012. - Have asked patient's nephew to bring in his home dosing which we can resume tomorrow if blood pressures remain stable (6) Diabetes mellitus, type II: Chronically on metformin - Holding Metformin while in hospital - Sliding scale insulin if needed - Check A1c Qualifiers: Diabetes mellitus halfway insulin use: without remote computer terminal operator use Diabetes mellitus complication status: with hyperglycemia Qualified Code(s): E11.65 - Type 2 diabetes mellitus with hyperglycemia (7) Generalized anxiety disorder: On chronic hydralazine and clonazepam as needed and takes Paxil and mirtazepine - Holding home hydroxyzine given rhabdomyolysis currently - Continue clonazepam at a lower dose until renal function stabilized - Continuing home Paxil - Hold mirtazepine presently (8) Abrasion, right lower leg, initial encounter: Present on admission, from chair/sliding down chair - Triple antibiotic ointment Plan VTE prophylaxis: Lovenox Antibiotics: none Pending studies: repeat CK level and other am labs Telemetry: not currently indicated but if home nadol not brought in will need to consider Mendoza: not currently indicated Line(s): peripheral IVs Disposition plan: Currently anticipate he may need skilled placement for physical therapy and lab monitoring post acute rhabdomyolysis in setting of known CIPD. He lives alone so will need consideration of assistance needs upon eventual discharge back to home setting. Does have involved family and neighbors. Would benefit from Hapticom or similar device. Code Status: Full Code Supportive care otherwise Findings, concerns and plans were discussed with patient and his nephew (who has DPOA) and both were given an opportunity to ask questions PDMP PDMP Reviewed: Last Reviewed 01/01/25 19:50 by Judy Lauren MD Attestations Medical Necessity Statement*: Anticipated stay greater than two midnights in this gentleman with CIDP and rhabdomyolysis. At baseline he has weakness which is currently either exacerbated by rhabdomyolysis or a contributor to it. Requiring IV fluids and serial labs, monitoring for improvement. Differential also includes possibility of stroke though presented outside of window for treatment Diagnoses Non-traumatic rhabdomyolysis M62.82 Rhabdomyolysis type: non-traumatic Weakness R53.1 CIDP (chronic inflammatory demyelinating polyneuropathy) G61.81 Primary hypertension I10 Hypertension type: primary hypertension History of tachycardia Z87.898 Type 2 diabetes mellitus with hyperglycemia, without long-term current use of insulin E11.65 Diabetes mellitus halfway insulin use: without remote computer terminal operator use Diabetes mellitus complication status: with hyperglycemia Generalized anxiety disorder F41.1 Abrasion, right lower leg, initial encounter S80.544X
[2025-01-01 14:17] LABS: Bacteria Urine None Seen /hpf; Hyaline Casts Urine 1.21 /lpf; Squamous Epithelial Cell Urine 0-5 /hpf (0-5); WBC Urine 0-5 /hpf (0-5)
[2025-01-01 14:22] LABS: Protein Urine 1+ (Negative); Urine Appearance Clear (CLEAR); Urine Color Yellow (Yellow); pH Urine 5 (5-7)
[2025-01-01 14:23] LABS: Add Urine Microscopic? YES; Amphetamines Screen Urine Negative (Negative); Barbiturates Screen Urine Negative (Negative); Benzodiazepines Screen Urine Negative (Negative); Bilirubin Urine Neg (Negative); Blood Urine 2+ (Negative); Cocaine Screen Urine Negative (Negative); Glucose Urine UA Norm (Normal); Ketones Urine 2+ (Negative); Leukocyte Esterase Urine Negative (Negative); Nitrate Urine Negative (Negative); Opiate Screen Urine Negative (Negative); PCP Screen Urine Negative (Negative); THC Screen Urine Negative (Negative); Urobilinogen Urine Norm (Negative)
[2025-01-01 14:30] LABS: UA Slide Review UA Slide Review Perf
[2025-01-01 14:36] LABS: Add Urine Culture? No
[2025-01-01 14:58] VITALS: BMI 29.5
[2025-01-01 15:12] VITALS: BP 123/72; PULSE 91; O2SAT 93
[2025-01-01 20:00] VITALS: BP 169/74; PULSE 86; RESP 18; TEMP 36.7; O2SAT 92
[2025-01-01] MEDS: sodium chloride 0.9% 1,000 ML 150 ML IV (20:13)
[2025-01-01] MEDS: enoxaparin 40 mg/0.4 mL Syringe SUBCUT (20:38)
[2025-01-01 21:02] LABS: Glucose Point of Care 160 mg/dL (70-110)
[2025-01-01] MEDS: gabapentin 300 mg Capsule PO (21:17)
[2025-01-01] MEDS: insulin lispro 100 unit/1 mL SUBCUT (21:17)
[2025-01-02] VITALS (8 sets, daily range): BP systolic 153–163; BP diastolic 76–91; PULSE 72–95; RESP 16–18; TEMP 36.6–36.9; O2SAT 90–93
[2025-01-02] MEDS: sodium chloride 0.9% 1,000 ML 150 ML IV ×3 (03:51→19:05)
[2025-01-02 06:02] LABS: Alanine Aminotransferase 24 U/L (0-41); Albumin Level 4.4 g/dL (3.5-5.2); Alkaline Phosphatase 106 U/L (40-130); Anion Gap 14.9 (5-19); Aspartate Amino Transferase 49 U/L (0-40); Blood Urea Nitrogen 12 mg/dL (8-23); Calcium 9.2 mg/dL (8.5-10.5); Carbon Dioxide 27 mmol/L (22-29); Chloride 102 mmol/L (98-107); Globulin 2.1 g/dL (1.3-4.6); Glucose 125 mg/dL (65-115); Magnesium 1.6 mg/dL (1.7-2.3); Osmolality Calculated 291 mOsm/kg (285-295); Phosphorus 2.4 mg/dL (2.5-4.5); Potassium 3.9 mmol/L (3.5-5.1); Sodium 140 mmol/L (136-145); Total Bilirubin 0.5 mg/dL (0.15-1.2); Total Protein 6.5 g/dL (6.6-8.7)
[2025-01-02 06:04] LABS: Lactate Dehydrogenase 211 U/L (135-225); Uric Acid 5.9 mg/dL (3.4-7.0)
[2025-01-02 06:06] LABS: Estmated Average Glucose 146; Hemoglobin A1C 6.7 % (4.0-6.0)
[2025-01-02 06:18] LABS: Creatine Phosphokinase 2559 U/L (39-308)
[2025-01-02 06:21] LABS: Glucose Point of Care 190 mg/dL (70-110)
[2025-01-02] MEDS: PARoxetine 20 mg Tablet 40 MG PO (08:49)
[2025-01-02] MEDS: insulin lispro 100 unit/1 mL SUBCUT ×3 (08:49→20:31)
[2025-01-02] MEDS: gabapentin 300 mg Capsule PO ×3 (08:49→20:32)
[2025-01-02] MEDS: aspirin 81 mg EC Tablet PO (08:49)
[2025-01-02] MEDS: amlodipine 5 mg Tablet PO (08:49)
[2025-01-02] MEDS: neomycin-poly-dex Op 5 mL Btl 1 DROP EYE-BOTH ×3 (08:50→20:31)
--- NOTE | 2025-01-02 09:23 | PC.CHAP ---
Pastoral Care Encounter/Spiritual Assessment Type of Contact [] Declined plastic manager visit [] Patient/Family/Request visit [] Outpatient visit [] Follow-up visit [] Physician referral [] Code/Alert [x] Routine visit [] Staff referral [] Actively dying [] Patient sleeping [] Family support [] [] Out of room [] Palliative care [] [] Receiving care in room [] Pre-surgical visit [] Trauma [] Long length of stay [] ICU visit [] Other: Relational/Emotional Strength [x] Patient feels connected with others/family/visitors/staff [] Distress [] Loneliness/isolation [] Abandonment Spirituality of Patient [x] Person of Rebeca [] Attends Christianity of their Rebeca [x] Believes in Prayer [] Reads Bible or Scientology materials [] There are Spiritual issues to be addressed Security Control Center Operator Interventions [x] Prayer [x] Active listening [] Non-anxious presence [x] Spiritual/emotional support [] Crisis/trauma care [] Spiritual counseling [] Bereavement support [] Provided bereavement packet [] Provided Bible/devotional materials [] Provided toy/stuffed animal, coloring book to patient or family member [] Provided Communion [] Anointing/[place] [] Salvation [x] Completed spiritual assessment [] Other: Impact on Illness or Injury [] Angry [] Fearful [] Anxious [] Often cries [] Exhaustion [] Unable to work [] Unable to attend moravian [] Unable to walk/stand [] Unable to read [] Unable to drive [] Unable to eat/drink [] Unable to sleep [] Unable to be with family [] Patient intubated [] Other: Summary Time spent with patient 5 min
[2025-01-02 10:26] LABS: Glucose Point of Care 174 mg/dL (70-110)
--- NOTE | 2025-01-02 14:09 | CT_ITS ---
WS: [id number] CT LUMBAR SPINE, noncontrast. HISTORY: weakness TECHNIQUE: Contiguous 2.0 mm axial imaging are performed. Sagittal and coronal reformats are submitted and reviewed. All CT scans at [facility] use at least one of these dose optimization techniques: automated exposure control; mA and/or kV adjustment per patient size (includes targeted exams where dose is matched to clinical indication); or iterative reconstruction. IV contrast: None DLP: 783.84 mGy.cm COMPARISON: None available. Mild increase in lumbar lordosis. L4 anterolisthesis by 2 mm. Hypertrophic endplate osteophytes, no fractures. Moderate bilateral facet joint arthropathy. L1-2: Normal. L2-3: Mild annular disc bulging with LEFT foraminal osteophytosis. Mild LEFT foraminal stenosis. L3-4: Diffuse annular disc bulging with mild facet arthritis. Ligamentum flavum hypertrophy, LEFT greater than RIGHT. Mild central, subarticular recess and foraminal stenosis. Slightly greater encroachment upon the traversing LEFT L4 nerve root. There may be facet joint cyst on the LEFT encroaching upon the central canal. L4-5: Diffuse annular disc bulge with a central disc protrusion. Ligamentum flavum and marked facet arthritis. Moderate to severe central with bilateral subarticular recess and mild foraminal stenosis. Most significant encroachment upon the traversing L5 nerve roots. L5-S1: Mild annular disc bulging and facet arthritis. Mild bilateral foraminal stenosis. Mild atherosclerosis abdominal aorta. Bilateral mild SI joint disease. CT/CT lumbar spine wo con* [id number] IMPRESSION: 1. No acute lumbar spine fracture. 2. L4-5: Moderate to severe central with bilateral subarticular recess and mil d foraminal stenosis. Disc encroachment upon the traversing L5 nerve roots. 3. L3-4: Mild central, subarticular recess and foraminal stenosis. Greater enc roachment upon the LEFT traversing L4 nerve root. 4. L2-3: Mild LEFT foraminal stenosis. 5. L5-S1: Mild bilateral foraminal stenosis.
--- NOTE | 2025-01-02 14:10 | USCV_ITS ---
Juan Carlos Velázquez Age: 84 Gender: M : 1940 Exam Date: 01/02/2025 17:03 Ordering Phys: Kimo Perdomo MD Technologist: KAREN [place] [facility] [place]: [place] HISTORY: swelling CVA right hemiparesis PROCEDURES: Venous duplex imaging was performed in bilateral lower extremities. The following venous structures were evaluated: common femoral vein, profunda vein, proximal portion of the greater saphenous vein, superficial femoral vein, and the popliteal vein. In addition, the posterior tibial veins were evaluated. FINDINGS: Normal 2-D Doppler and augmentation and compressibility throughout the lower extremity venous structures. Additional imaging through the proximal calf veins also reveals no thrombus. Limited evaluation of the greater saphenous vein is patent with no thrombus. CONCLUSIONS No DVT bilateral lower extremities. Dr. Suha De Luna DO (Electronically Signed) Final Date: 03 January 2025 12:32 S
[2025-01-02 14:30] LABS: Basophils % 0.4 %; Eosinophils # 0.1 10^3/uL (0.0-0.8); Eosinophils % 0.8 %; Hematocrit 43.4 % (37-53); Lymphocytes % 31.6 %; Mean Corpuscular HGB Conc 31.6 g/dL (30-55); Mean Corpuscular Hemoglobin 27.8 pg (27-33); Mean Platelet Volume 10.6 fL (7.4-10.4); Monocytes # 1.2 10^3/uL (0.2-0.9); Monocytes % 12.7 %; Neutrophils # 5.12 10^3/uL (1.8-7.7); Neutrophils % 54.3 %; Nucleated Red Blood Cells % 0 %; Platelet Count 230 10^3/cmm (157-399); Red Blood Count 4.93 10^6/uL (3.85-5.65); Red Cell Distribution Width 13.9 % (12.1-15.1); White Blood Count 9.45 10^3/uL (3.29-11.43)
[2025-01-02 14:40] LABS: Erythrocyte Sedimentation Rate 9 mm/hr (0-10)
[2025-01-02 14:51] LABS: Free T4 Free Thyroxine 0.95 ng/dL (0.82-1.77); Procalcitonin 0.05 ng/mL (0-0.5); T3 Free 2.7 PG/ML (2.0-4.4); Thyroid Stimulating Hormone 2.39 uIU/mL (0.27-4.20)
[2025-01-02 15:02] LABS: C Reactive Protein 15.4 mg/L (0.0-4.9)
--- NOTE | 2025-01-02 16:36 | P.PN_ITS ---
Subjective 2 Subjective: Patient was seen this morning, family members at bedside, he reports acute on chronic weakness of the lower extremities, he about a month ago was functional enough that he could get into his truck, but has been requiring more assistance for mobility, he is fallen a couple of times, now he has an inability to get up from a seated position, denies any fevers, no blurry vision, he does have a chronic left eye droop he tells me it has been there for all his life, denies any difficulty breathing, he reports being on steroids in the past, but due to elevated blood sugars now is on Vyvgart, denies any back pain, does report that he has lower extremity weakness, and bilateral lower extremities, more on the right, but over the last few days it has been more on the right, does report right upper extremity weakness, started yesterday around 3 to 4 PM when he fell on the floor, and laid on the floor, does have a stutter, perhaps a slight right facial droop, pupils equal round reactive to light -On examination I do discern a slight ri ght facial droop, he does have stuttering of his words, right lower extremity strength is more profound than the left, does have right upper extremity weakness more compared to the left, his NIH stroke scale is at 6, his initial head CT no acute stroke, he was out of the window for tPA -But he does report chronic weakness of his lower extremities more on the right so the question is is this acute CVA and/or worsening of his CIDP, does report falling, but no back pain -Case was discussed with neurology, cons ideration of interventions for CIDP, MRI brain ordered, cardiac echo, Vitals/I&O/Wt Last Vital Signs Temp 98.4 F 01/02/25 15:26 Pulse 80 01/02/25 15:26 Resp 17 01/02/25 15:26 BP 163/77 01/02/25 15:26 Pulse Ox 90 01/02/25 15:26 O2 Del Method Room Air 01/02/25 15:26 01/02/25 01/02/25 01/02/25 06:59 14:59 22:59 Intake Total 1120 / 2240 1480 / 1480 Balance 1120 / 2240 1480 / 1480 Weight last 48 hrs Weight 95.164 kg Weight 90.889 kg Weight 91.626 kg Physical Exam 2 Const: COMMON NORMALS: no acute distress and patient oriented x3 Resp: COMMON NORMALS: normal respiratory effort, No retractions, No use of accessory muscles and clear to auscultation bilaterally AUSCULTATION: clear to auscultation bilaterally Cardio: COMMON NORMALS: regular rate, regular rhythm, S1 normal heart sound present and S2 normal heart sound present RATE: regular rate RHYTHM: r egular rhythm HEART SOUNDS: S1 normal heart sound present and S2 normal heart sound present GI: COMMON NORMALS: Normal to inspection, nondistended, normoactive bowel sounds present and non-tender Extremity: COMMON NORMALS: no pedal edema Neuro: COMMON NORMALS: patient oriented x3, CN's II-XII intact bilaterally and moves all extremities OTHER: Bilateral lower extremity weakness, more weak on the right compared to the left, he reports that that is chronically the case -Diminished strength with dorsal and lucas ntarflexion bilateral lower extremities, more profound on the right -He has good hip strength bilateral lowe r extremity -Decreased strength in anterior and post erior compartments of lower extremity -No paresthesias reported Slight right facial droop Right upper extremity strength slightly diminished compared to left Psych: COMMON NORMALS: mental status grossly normal Data 01/02/25 05:01 01/02/25 05:01 A&P Assessment and plan (1) Rhabdomyolysis: - Likely secondary to immobility, falls -Decrease fluids to 75 cc -Will monitor CPK Qualifiers: Rhabdomyolysis type: non-traumatic Qualified Code(s): M62.82 - Rhabdomyolysis (2) Weakness: -Was evaluated for stroke on admission, -Presented outside of window, initial NIH stroke scale was 2, concerns for right upper/ lower extremity weakness, drift -Currently has bilateral lower extremity weakness, more profound on the right, I cannot discern any upper extremity weakness -Patient reports that he is always been weak on the right compared to the left, with his CIDP, and has been worsening gradually recently, his right leg has given out -Has more for profound right-sided weakness especially in his right lower extremity this morning, slight right facial droop, does have stuttering and a stroke scale 6 -Concern for acute CVA -CT no acute findings - PT/OT evaluation when CK levels improve - Serial neuro checks - Aspirin - No statin due to rhabdomyolysis, contraindicated -MRI brain -cardiac echo -CTA head and neck -CT lumbar spine -Telemetry monitoring, permissive hypertension -Neurochecks, NIH stroke scale -Potentially CIDP could be playing a role, will give 1 dose of IV Decadron, patient cannot accept blood products as he is a Gnosticist including IVIG (3) CIDP (chronic inflammatory demyelinating polyneuropathy): Followed in the outpatient setting by Dr. Jon. Has been on Vyvgart infusions with some improvement in functional status until acute weakness this weekend. Vyvgart is not known to be associated with rhabomyolysis on review of on line resources. -Not a candidate for blood products given patient's a Gnosticist (4) Hypertension: Chronically on amlodipine -hold Qualifiers: Hypertension type: primary hypertension Qualified Code(s): I10 - Essential (primary) hypertension (5) History of tachycardia: Chronically on nadolol due to history of fast heart rate, details unknown. He has been on this medication since at least 2012. - tele monitoring (6) Diabetes mellitus, type II: Chronically on metformin - Holding Metformin while in hospital - Sliding scale insulin if needed - Check A1c 6.7 Qualifiers: Diabetes mellitus termite renewal inspector insulin use: without mcfp use Diabetes mellitus complication status: with hyperglycemia Qualified Code(s): E11.65 - Type 2 diabetes mellitus with hyperglycemia (7) Generalized anxiety disorder: On chronic hydralazine and clonazepam as needed and takes Paxil and mirtazepine - Holding home hydroxyzine given rhabdomyolysis currently - Continue clonazepam at a lower dose until renal function stabilized - Continuing home Paxil - Hold mirtazepine presently (8) Abrasion, right lower leg, initial encounter: Present on admission, from chair/sliding down chair - Triple antibiotic ointment (9) Acute CVA (cerebrovascular accident): - as above Plan VTE prophylaxis: Lovenox Antibiotics: none Telemetry: Mendoza: not currently indicated Line(s): peripheral IVs Disposition plan: Currently anticipate he may need skilled placement for physical therapy and lab monitoring post acute rhabdomyolysis in setting of known CIPD. He lives alone so will need consideration of assistance needs upon eventual discharge back to home setting. Does have involved family and neighbors. Would benefit from life alert or similar device. Code Status: Full Code Supportive care otherwise Findings, concerns and plans were discussed with patient and his nephew (who has DPOA) and both were given an opportunity to ask questions Plan for today, CTA head and neck ordered, MRI brain, IV fluids, permissive hypertension, and a stroke scale, neurochecks, PT OT, speech therapy eval, discussed case with neurology, PDMP PDMP Reviewed: Not Reviewed Attestations 2 Medical Necessity Statement*: Patient has patient requires hospitalization for concerns for right-sided weakness, concerns for acute CVA, Diagnoses Non-traumatic rhabdomyolysis M62.82 Rhabdomyolysis type: non-traumatic Weakness R53.1 CIDP (chronic inflammatory demyelinating polyneuropathy) G61.81 Primary hypertension I10 Hypertension type: primary hypertension History of tachycardia Z87.898 Type 2 diabetes mellitus with hyperglycemia, without long-term current use of insulin E11.65 Diabetes mellitus mcfp insulin use: without termite renewal inspector use Diabetes mellitus complication status: with hyperglycemia Generalized anxiety disorder F41.1 Abrasion, right lower leg, initial encounter S80.811A Acute CVA (cerebrovascular accident) I63.9
--- NOTE | 2025-01-02 16:44 | USCV_ITS ---
Juan Carlos Velázquez Age: 84 Gender: M : 1940 Exam Date: 01/02/2025 17:49 Ordering Phys: Kmio Perdomo MD Technologist: KAREN [place] [facility] [place]: CVA right hemiparesis BP: 163 / 77 HR: 79 Rhythm: Sinus Technical Quality: Adequate MEASUREMENTS (Male / Female) Normal Values 2D ECHO LV Diastolic Diameter PLAX 3.6 cm 4.2 - 5.9 / 3.9 - 5.3 cm IVS Diastolic Thickness 1.4 cm 0.6 - 1.0 / 0.6 - 0.9 cm IVS Systolic Thickness 2.0 cm LVPW Diastolic Thickness 1.5 cm 0.6 - 1.0 / 0.6 - 0.9 cm LVPW Systolic Thickness 2.0 cm LVOT Diameter 2.1 cm LV Ejection Fraction 2D Teich 53.9 % LV Ejection Fraction MOD 4C 53.9 % LV Ejection Fraction MOD 2C 64.8 % LV Ejection Fraction 2C AL 64.2 % LA Diameter 3.2 cm Aorta at Sinotubular Diameter 2.8 cm IVC Diameter 1.2 cm M-MODE LA Ao Ratio MM 0.9 AV Cusp Separation MM 2.1 cm DOPPLER AV Peak Velocity 137.0 cm/s LVOT Peak Velocity 104.0 cm/s AV Area Cont Eq vti 3.9 cm squared AV Area Cont Eq pk 2.5 cm squared MV Peak Velocity 90.0 cm/s MV Area PHT 3.0 cm squared Mitral E to A Ratio 0.9 TV Peak E Velocity 60.0 cm/s PV Peak Velocity 106.0 cm/s FINDINGS Left Ventricle Left ventricle is normal in size. LV systolic function is normal with EF of 55 to 60%. No regional wall motion abnormalities are seen. Grade 1 diastolic dysfunction Right Ventricle Normal in size and function. Right Atrium Grossly noraml Left Atrium Grossly normal Mitral Valve Structurally normal mitral valve. Mild mitral regurgitation. Aortic Valve Aortic valve is thickened. No significant stenosis or regurgitation. Tricuspid Valve Insufficient TR jet to calculate RVSP. Pulmonic Valve Not well-visualized Pericardium Normal. Aorta Normal in size IVC Appears to be normal CONCLUSIONS LV systolic function is normal with EF of 55-60% Grade 1 diastolic dysfunction Mild mitral regurgitation No comparison studies are available. Jacky Silva MD (Electronically Signed) Final Date: 04 January 2025 07:40 S
--- NOTE | 2025-01-02 16:44 | USCV_ITS ---
GenevaJuan Carlos dominguez Age: 84 Gender: M : 1940 Exam Date: 01/02/2025 17:23 Ordering Phys: Kimo Perdomo MD Technologist: KAREN [place] [facility] [place] [place]: CVA Right hemiparesis Risk Factors: unknown Previous Vascular Surgery: unknown Right Brachial BP: / Left Brachial BP: / Right Left Velocity (cm/s) Spectral Plaque Velocity (cm/s) Spectral Plaque Syst/Diast Broadening Syst/Diast Broadening 94.40/ 16.70 Min Homo Prox CCA 111.00/ 14.90 Min Homo 113.90/18.00 Min Hetro Mid CCA 100.10/ 18.10 Min Hetro 104.80/16.70 Min Hetro Distal CCA 91.40 / 16.00 Min Hetro 50.60/ 14.00 Min Norman Prox ICA 57.50 / 17.10 None Hetro 56.00/ 13.90 None Hetro Mid ICA 68.40 / 20.30 None Hetro 57.00/ 15.80 None Norman Distal ICA 61.40 / 17.70 Min Norman 122.10 Min Hetro ECA 92.50 None Norman 0.50 ICA/CCA 0.70 Antegrade Vertebral Antegrade 31.70/ 6.60 cm/s 26.30/ 5.40 cm/s Tri Subclavian Tri 88.90 87.80 FINDINGS Comparison: none available. No significant elevation of systolic or diastolic velocities. Waveforms are normal. Miinimal carotid atherosclerosis. CONCLUSIONS Bilateral ICA stenosis less than 50%. Minimal carotid atherosclerosis. Dr. Suha De Luna DO (Electronically Signed) Final Date: 03 January 2025 12:40 S
[2025-01-02] MEDS: dexamethasone 10 mg/mL INJ IVP (16:54)
[2025-01-02 16:58] LABS: Glucose Point of Care 138 mg/dL (70-110)
--- NOTE | 2025-01-02 17:03 | CTR_ITS ---
PROCEDURE INFORMATION: Exam: CTA Head With Contrast, Arteriography Exam date and time: 01/02/2025 9:36 PM Age: 84 years old Clinical indication: Other: CVA TECHNIQUE: Imaging protocol: Computed tomographic angiography of the head with contrast. Exam focused on the arteries. 3D rendering (Not supervised by radiologist): MIP and/or 3D reconstructed images were created by the technologist. Radiation optimization: All CT scans at this facility use at least one of these dose optimization techniques: automated exposure control; mA and/or kV adjustment per patient size (includes targeted exams where dose is matched to clinical indication); or iterative reconstruction. Contrast material: OMNIPAQUE 350; Contrast volume: 100 ml; Contrast route: INTRAVENOUS (IV); COMPARISON: CT head thrombolytic [id number] 01/01/2025 11:30 AM RADIATION DOSE METRICS: Total DLP (mGy-cm): 1151.39 FINDINGS: ANTERIOR CIRCULATION: Right internal carotid artery: Intracranial segment is patent with no significant stenosis. No aneurysm. Right middle cerebral artery: No occlusion or significant stenosis. No aneurysm. 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 Patent anterior communicating artery. The remainder of the artery is widely patent without stenosis. Left internal carotid artery: Intracranial segment is patent with no significant stenosis. No aneurysm. Left middle cerebral artery: No occlusion or significant stenosis. No aneurysm. Left anterior cerebral artery: No occlusion or significant stenosis. No aneurysm. POSTERIOR CIRCULATION: Right vertebral artery: No occlusion or significant stenosis. No aneurysm. Left vertebral artery: No occlusion or significant stenosis. No aneurysm. Basilar artery: No occlusion or significant stenosis. No aneurysm. Right posterior cerebral artery: No occlusion or significant stenosis. No aneurysm. Left posterior cerebral artery: No occlusion or significant stenosis. No aneurysm. Brain: Stable 1.0 cm hypodensity in the posterior left lentiform nucleus and inferior swenson radiata. Mild microangiopathy in the supratentorial white matter. Diffuse cortical volume loss. Cerebral ventricles: No ventriculomegaly. Bones/joints: Unremarkable. No acute fracture. Soft tissues: Unremarkable. PROCEDURE INFORMATION: Exam: CTA Neck With Contrast Exam date and time: 01/02/2025 9:36 PM Age: 84 years old Clinical indication: Other: CVA TECHNIQUE: Imaging protocol: Computed tomographic angiography of the neck with contrast. Exam focused on the cervical segments of the vasculature. 3D rendering (Not supervised by radiologist): MIP and/or 3D reconstructed images were created by the technologist. Radiation optimization: All CT scans at this facility use at least one of these dose optimization techniques: automated exposure control; mA and/or kV adjustment per patient size (includes targeted exams where dose is matched to clinical indication); or iterative reconstruction. Contrast material: OMNIPAQUE 350; Contrast volume: 100 ml; Contrast route: INTRAVENOUS (IV); COMPARISON: CT head thrombolytic [id number] 01/01/2025 11:30 AM RADIATION DOSE METRICS: Total DLP (mGy-cm): 1151.39 FINDINGS: Right common carotid artery: No stenosis. No dissection or occlusion. Right internal carotid artery: No stenosis of the extracranial segment. No dissection or occlusion. Right external carotid artery: No occlusion or stenosis of the origin. Left common carotid artery: No stenosis. No dissection or occlusion. Left internal carotid artery: No stenosis of the extracranial segment. No dissection or occlusion. Left external carotid artery: No occlusion or stenosis of the origin. Right vertebral artery: No stenosis. No dissection or occlusion. Left vertebral artery: The left vertebral artery originates from the aortic arch. No stenosis or occlusion. Soft tissues: Normal. No significant soft tissue swelling. Bones/joints: Degenerative changes in the cervical spine. No fracture. CT/CT angio headneck* [id number] IMPRESSION: 1. 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 Patent anterior communicating artery. 2. Stable 1.0 cm acute versus subacute infarct in the posterior left lentiform nucleus and inferior swenson radiata. IMPRESSION: No large artery stenosis or occlusion. REFERENCES: NASCET CRITERIA. The degree of stenosis in the cervical segment of the internal carotid artery is based on NASCET criteria. Normal is no stenosis. Mild is less than 50% stenosis. Moderate is 50-69% stenosis. Severe is 70% to 99% stenosis. Total occlusion is no detectable patent lumen.
--- NOTE | 2025-01-02 17:03 | PM.CONSULT ---
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 Attending Physician: Kimo Perdomo MD Primary Care Provider: Jaswinder Sorensen MD History of Present Illness History of Present Illness Juan Carlos Velázquez is a 84 year old male with a history of chronic inflammatory demyelinating polyneuropathy (CIDP) and diabetes. The patient was on steroids for three months, which exacerbated his diabetes, causing blood sugars to run around 300. He has since switched to Vyvgart (Efgartigimod), starting on 06-07-24, with no reported side effects. There was report that the patient's strength was substantially improved by exam performed by Dr. Jon on 11/08/2024. According to the patient, he lives alone but has a neighbor that checks on him periodically. The patient stated that on January 01, 2024 he was sitting at his kitchen table for prolonged period during paperwork. The patient stated that he stood up and took a few steps and failed while he was trying to get to his chair which was approximately 20 feet away. The patient stated that his legs gave way and he noticed more weakness on the right side of his body involving his arm and leg. The patient stated that he was not found until the following day by his neighbor and he remained on the floor all that evening until the next day when he was found by his neighbor. The patient was brought to [facility] emergency department on January 01, 2025. Noncontrast head CT was reported to be negative. Patient was admitted. On 01/02/2025 I was contacted by the hospitalist to evaluate the patient secondary to weakness. On examination the patient displays right lower facial weakness and weakness in the right arm and right leg suggestive of possible left subcortical versus cortical infarction. Deep tendon reflexes 2+ bilaterally and motor strength in the left arm and left leg is 5/5. Motor testing in the right arm is approximately 3+/5 motor testing in the right leg 3/5. Plantar responses flexor bilaterally. Sensory examination: Patient reports numbness in the right leg to touch. NIH score = 5 (right lower facial weakness =1, right arm weakness =1, right leg weakness =2, decreased sensation right leg =1) Point of contact glucose 138 on 01/02/[address] 01/01/2025 revealed no acute process only mild atrophy and minimal small vessel ischemic change Note: Since the patient's last known well was 12/31/2024 and the patient presented to the [facility] emergency department on 01/01/2025, the patient was not a candidate for intravenous thrombolytics and no intravenous thrombolytics were administered. Drug allergies: Codeine type reaction unknown Current medications: Vyvgart (Efgartigimod gerardo-Fcab) 11,200 units per 5.6 mL, 5.6 mL subcutaneously every 7 days for chronic inflammatory demyelinating polyneuropathy (CIDP) Norvasc 5 mg p.o. daily Klonopin 0.5 mg p.o. twice daily, as needed Neurontin 300 mg p.o. 3 times daily Hydroxyzine 50 mg p.o. 3 times daily as needed Metformin XR 500 mg tablets 1000 mg p.o. daily Remeron 30 mg p.o. nightly Nadolol 20 mg p.o. daily Paxil 40 mg p.o. daily Neomycin/polymyxin B/dexamethasone ophthalmic eyedrop 1 drop 3 times a day Past medical history: Chronic inflammatory demyelinating polyneuropathy diagnosed approximately 5 years ago Type 2 diabetes mellitus Hypertension History of tachycardia Rhabdomyolysis on admission 01/01/2025 Major depression Generalized anxiety disorder Habits: None Family history: Noncontributory Review of Systems General: Reports: 10 or more systems reviewed and unremarkable except in HPI and below Medications/Allergies Home Medications ?Medication ?Instructions ?Recorded ?Confirmed ?Last Taken ?Type amlodipine 5 mg tablet 5 mg PO DAILY 05/14/21 01/01/25 12/31/24 History nadolol 20 mg tablet 20 mg PO DAILY 05/14/21 01/01/25 12/31/24 History efgartigimod gerardo 1008 5.6 ml SUBCUT Q7D 4 weeks #5.6 mL 05/30/24 01/01/25 Unknown Rx gq-ruwtjxkd-cprt 11,200 unit/5.6 mL subcut soln (Vyvgart Hytrulo) metformin 500 mg tablet,extended 1,000 mg PO DAILY 09/07/24 01/01/25 12/31/24 History release 24 hr clonazepam 0.5 mg tablet (Klonopin) 0.5 mg PO BID PRN anxiety #60 tabs 12/20/24 01/01/25 12/31/24 Rx hydroxyzine HCl 50 mg tablet 50 mg PO TID PRN anxiety #90 tabs 12/20/24 01/01/25 12/31/24 Rx mirtazapine 30 mg tablet (Remeron) 30 mg PO .at bed #30 tabs 12/20/24 01/01/25 12/31/24 Rx paroxetine HCl 40 mg tablet (Paxil) 40 mg PO QAM #30 tabs 12/20/24 01/01/25 01/01/25 Rx gabapentin 300 mg capsule 300 mg PO TID 01/01/25 01/01/25 12/31/24 History mhslqppt-mmcqaimrd-xmcjtnmt 3.5 1 drp ophthalmic (eye) TID 01/01/25 01/01/25 Unknown History mg/mL-10,000 unit/mL-0.1% eye drops Allergies Allergy/AdvReac Type Severity Reaction Status Date / Time codeine Allergy Unknown Verified 12/20/24 13:42 Current Medications Generic Name Dose Route Start Last Admin Trade Name Freq PRN Reason Stop Dose Admin Amlodipine Besylate 5 mg 01/02/25 09:00 01/02/25 08:49 Amlodipine 5 Mg Tablet PO 5 mg DAILY KAILASH Administration Aspirin 81 mg 01/02/25 09:00 01/02/25 08:49 Aspirin 81 Mg Ec Tablet PO 81 mg DAILY KAILASH Administration Enoxaparin Sodium 40 mg 01/01/25 19:30 01/01/25 20:38 Enoxaparin 40 Mg/0.4 Ml Syringe SUBCUT 40 mg Q24H KAILASH Administration Gabapentin 300 mg 01/01/25 21:00 01/02/25 16:54 Gabapentin 300 Mg Capsule PO 300 mg TID KAILASH Administration Sodium Chloride 1,000 mls @ 75 mls/hr 01/01/25 18:45 01/02/25 11:35 Sodium Chloride 0.9% IV 150 mls/hr .[id number] KAILASH Administration Insulin Human Lispro 0 unit 01/01/25 21:00 01/01/25 21:17 Insulin Lispro 100 Unit/1 Ml SUBCUT 1 unit BEDTIME KAILASH Administration Protocol Insulin Human Lispro 0 unit 01/02/25 08:00 01/02/25 12:19 Insulin Lispro 100 Unit/1 Ml SUBCUT 2 unit TIDWM KAILASH Administration Protocol Neomycin/Polymyxin/Bacitracin 1 applic 01/02/25 09:00 01/02/25 16:48 Fubsvnfq-Gsnm-Ihxemxejgz Oint 28 Gm TOPICAL Not Given BID KAILASH Neomycin/Polymyxin/Dexamethasone 1 drop 01/01/25 21:00 01/02/25 16:55 Jreoshgh-Pnva-Gkp Op 5 Ml Btl EYE-BOTH 1 drop TID KAILASH Administration Paroxetine HCl 40 mg 01/02/25 09:00 01/02/25 08:49 Paroxetine 20 Mg Tablet PO 40 mg DAILY KAILASH Administration PFSH Acute PFSH: Medical History (Updated 01/02/25 @ 17:12 by Kimo Perdomo MD) History of tachycardia on nadol Hypertension Diabetes mellitus, type II 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 Weakness of lower extremity Major depressive disorder, recurrent, in full remission Generalized anxiety disorder Surgical History (Updated 01/01/25 @ 20:26 by Judy Lauren MD) History of repair of left rotator cuff History of cataract surgery left eye Social History (Updated 01/01/25 @ 18:47 by Judy Lauren MD) Smoking and tobacco/nicotine status: never used tobacco/nicotine Alcohol intake: never Substance/Drug Use: never Rebeca/Episcopal: Yazidism Agree to transfusion: No (and no IVIG or other blood containing products) Vitals/I&O/Wt Last Vital Signs Temp 98.4 F 01/02/25 15:26 Pulse 80 01/02/25 15:26 Resp 17 01/02/25 15:26 BP 163/77 01/02/25 15:26 Pulse Ox 90 01/02/25 15:26 O2 Del Method Room Air 01/02/25 15:26 01/02/25 01/02/25 01/02/25 06:59 14:59 22:59 Intake Total 1120 / 2240 1480 / 1480 Balance 1120 / 2240 1480 / 1480 Weight last 48 hrs Weight 209 lb 12.8 oz Weight 200 lb 6 oz Weight 202 lb Physical Exam Narrative: NIH score = 5 (right lower facial weakness =1, right arm weakness =1, right leg weakness =2, decreased sensation right leg =1) Point of contact glucose 138 on 01/02/[address] 01/01/2025 revealed no acute process only mild atrophy and minimal small vessel ischemic change. On examination the patient is alert and oriented to person place and situation. Speech clear. Head atraumatic. Neck supple. Cranial nerves II through XII revealed right lower facial weakness. Other cranial nerves were intact. Motor testing revealed weakness in the right arm and right leg suggestive of possible left subcortical versus cortical infarction. The patient also displayed upper body tremors but he stated that this is a chronic problem. Deep tendon reflexes 2+ bilaterally and motor strength in the left arm and left leg is 5/5. Motor testing in the right arm is approximately 3+/5 motor testing in the right leg 3/5. Plantar responses flexor bilaterally. Sensory examination: Patient reports numbness in the right leg to touch. Throat clear. Lungs clear. Heart regular rhythm and rate. Extremities were negative for cyanosis. Data 01/02/25 05:01 01/02/25 05:01 A&P Assessment and plan (1) Acute CVA (cerebrovascular accident): Impression: 1. Clinical examination suggestive of left subcortical versus cortical infarction manifested as right lower facial weakness, right arm weakness and right leg weakness which began acutely on December 31, 2024. The patient lives alone and stated he was down until the following day on January 01, 2025 when he was found by his neighbor and brought to [facility] emergency department. Note: Since the patient's last known well was December 31, 2024, patient was not a candidate for intravenous thrombolytics and no intravenous thrombolytics were administered on January 01, 2025. 2. History of chronic inflammatory demyelinating polyneuropathy (CIDP) treated with Vyvgart since 06/07/2024, which appears to be stable. 3. Type 2 diabetes mellitus 4. Abnormal EKG January 01, 2025 secondary to JUNCTIONAL RHYTHM LEFT AXIS DEVIATION [QRS AXIS < -30] PATTERN CONSISTENT WITH PULMONARY DISEASE SEPTAL MYOCARDIAL INFARCTION , OF INDETERMINATE AGE Plan: 1. Agree with obtaining CT angiogram of the head and neck to assess for large vessel occlusion 2. Agree with obtaining head MRI without contrast to assess for subacute left subcortical versus cortical infarct 3. Recommend cardiac telemetry monitoring to assess for cardiac arrhythmias and obtain cardiac evaluation if cardiac telemetry monitoring reveals arrhythmias 4. Recommend 2D echocardiogram to assess for embolic source for stroke 5. Neurochecks and vital signs per NIH stroke protocol 6. Recommend starting lipid-lowering agents such as Lipitor, Zocor, or Crestor per NIH stroke protocol 7. Recommend low-dose aspirin 81 mg p.o. every morning with food per NIH stroke protocol if no contraindication 8. Obtain fasting lipid profile if not already performed 9. Occupational Therapy and physical therapy and speech therapy consults 10. Fall precautions 11. Stroke education for patient and patient's family (2) CIDP (chronic inflammatory demyelinating polyneuropathy): PDMP PDMP Reviewed: Not Reviewed Consult Attestations Medical Necessity Statement: The patient was evaluated by neurology for acute weakness Coding Level of Care Code 56252 Diagnoses Acute CVA (cerebrovascular accident) I63.9 CIDP (chronic inflammatory demyelinating polyneuropathy) G61.81
[2025-01-02] MEDS: neomycin-poly-bacitracin oint 28 gm 1 APPLIC TOPICAL (18:14)
[2025-01-02 19:53] LABS: Glucose Point of Care 242 mg/dL (70-110)
[2025-01-02] MEDS: enoxaparin 40 mg/0.4 mL Syringe SUBCUT (20:31)
[2025-01-02] MEDS: CLONazepam 0.5 mg Tablet 0.25 MG PO (20:32)
[2025-01-02 21:16] LABS: Glucose Point of Care 278 mg/dL (70-110)
[2025-01-02] MEDS: iohexol 350 mg/mL 500 mL Btl (per mL) IV (21:41)
--- NOTE | 2025-01-02 23:32 | PM.MISC ---
Miscellaneous Note Note: was just called by [facility] to notify about the acute vs subacute 1cm infarct noted on the posterior L. lentiform nucleus vs inferior swenson radiata.
[2025-01-03] VITALS (9 sets, daily range): BP systolic 150–180; BP diastolic 68–93; PULSE 65–87; RESP 16–18; TEMP 36.3–37.2; O2SAT 87–92
[2025-01-03] MEDS: sodium chloride 0.9% 1,000 ML 150 ML IV (05:56)
[2025-01-03 06:22] LABS: Glucose Point of Care 190 mg/dL (70-110)
[2025-01-03 06:52] LABS: Basophils % 0.1 %; Hematocrit 44.6 % (37-53); Lymphocytes # 1.3 10^3/uL (0.8-4.8); Mean Corpuscular HGB Conc 31.6 g/dL (30-55); Mean Corpuscular Hemoglobin 27.4 pg (27-33); Mean Corpuscular Volume 86.6 fl (82-101); Mean Platelet Volume 10.2 fL (7.4-10.4); Monocytes # 0.7 10^3/uL (0.2-0.9); Neutrophils # 5.56 10^3/uL (1.8-7.7); Neutrophils % 73.5 %; Nucleated Red Blood Cells % 0 %; Platelet Count 233 10^3/cmm (157-399); Red Blood Count 5.15 10^6/uL (3.85-5.65); Red Cell Distribution Width 13.2 % (12.1-15.1); White Blood Count 7.57 10^3/uL (3.29-11.43)
[2025-01-03 07:17] LABS: Anion Gap 16.4 (5-19); Blood Urea Nitrogen 10 mg/dL (8-23); Calcium 9.7 mg/dL (8.5-10.5); Carbon Dioxide 28 mmol/L (22-29); Chloride 100 mmol/L (98-107); Creatinine Clr Calc Pharmacy 78.5876; Glucose 193 mg/dL (65-115); Osmolality Calculated 294 mOsm/kg (285-295); Potassium 4.4 mmol/L (3.5-5.1); Sodium 140 mmol/L (136-145)
[2025-01-03] MEDS: aspirin 81 mg EC Tablet PO (08:37)
[2025-01-03] MEDS: PARoxetine 20 mg Tablet 40 MG PO (08:37)
[2025-01-03] MEDS: gabapentin 300 mg Capsule PO ×3 (08:37→21:21)
[2025-01-03] MEDS: neomycin-poly-bacitracin oint 28 gm 1 APPLIC TOPICAL ×2 (08:37→18:10)
[2025-01-03] MEDS: insulin lispro 100 unit/1 mL SUBCUT ×3 (08:38→21:21)
[2025-01-03] MEDS: neomycin-poly-dex Op 5 mL Btl 1 DROP EYE-BOTH ×3 (08:38→21:20)
[2025-01-03 11:55] LABS: Glucose Point of Care 128 mg/dL (70-110)
[2025-01-03 12:06] LABS: Creatine Phosphokinase 825 U/L (39-308)
--- NOTE | 2025-01-03 12:32 | PC.SOCIAL ---
IMM updated IMM dated and initialed, copy given to patient and copy placed in chart
--- NOTE | 2025-01-03 16:41 | MR_ITS ---
WS: [id number] MRI HEAD WITHOUT CONTRAST TECHNIQUE: Sagittal T1, T2 axial, T2 axial FLAIR, axial and coronal T1 images, axial susceptibility weighted imaging, axial diffusion weighted images, and coronal T2 images were obtained. CLINICAL INFORMATION: right lower extremity weakness COMPARISON: CT 01/01/2025 FINDINGS: Restricted diffusion involving the posterior limb LEFT internal capsule extending into the swenson radiata compatible with a small area of acute ischemia. This corresponds to the prior recent CTa findings. Infarct measures 12 mm in maximum dimension. Mild associated edema. No significant mass effect or midline shift. No other acute foci of ischemia. Mild small vessel changes. Moderate parenchymal volume loss. No hemosiderin on the susceptibly weighted images. Normal posterior fossa. Normal vascular flow voids at the skull base. No extra- axial fluid collections. Paranasal sinuses and mastoid air cells are well aerated. MR/MR head wo con* [id number] IMPRESSION: 1. 12 mm area acute ischemia involving the LEFT swenson radiata and posterior l imb LEFT internal capsule corresponding to the CTa findings. 2. Mild associated edema with the area of infarct. 3. No significant mass effect or midline shift.
[2025-01-03 16:54] LABS: Glucose Point of Care 143 mg/dL (70-110)
--- NOTE | 2025-01-03 16:56 | P.PN_ITS ---
Subjective 2 Subjective: Patient was seen this morning, Vitals/I&O/Wt Last Vital Signs Temp 98.9 F 01/03/25 15:58 Pulse 80 01/03/25 15:58 Resp 16 01/03/25 15:58 BP 180/76 01/03/25 15:58 Pulse Ox 90 01/03/25 15:58 O2 Del Method Room Air 01/03/25 15:58 01/03/25 01/03/25 01/03/25 06:59 14:59 22:59 Intake Total 1120 / 3600 1480 / 1480 Balance 1120 / 3600 1480 / 1480 Weight last 48 hrs Weight 92.487 kg Weight 95.164 kg Physical Exam 2 Const: COMMON NORMALS: no acute distress and patient oriented x3 Resp: COMMON NORMALS: normal respiratory effort, No retractions, No use of accessory muscles and clear to auscultation bilaterally AUSCULTATION: clear to auscultation bilaterally Cardio: COMMON NORMALS: regular rate, regular rhythm, S1 normal heart sound present and S2 normal heart sound present RATE: regular rate RHYTHM: r egular rhythm HEART SOUNDS: S1 normal heart sound present and S2 normal heart sound present GI: COMMON NORMALS: Normal to inspection, nondistended, normoactive bowel sounds present and non-tender Extremity: COMMON NORMALS: no pedal edema Neuro: COMMON NORMALS: patient oriented x3 OTHER: Slight stuttering of words, slight right facial droop, slight word finding difficulty, right upper extremity clumsy hand, right lower extremity strength remains significantly diminished, decreased plantar and dorsiflexion Psych: COMMON NORMALS: mental status grossly normal Data 01/03/25 06:27 01/03/25 06:27 A&P Assessment and plan (1) Rhabdomyolysis: - Likely secondary to immobility, falls -Decrease fluids to 75 cc -Will monitor CPK 825 Qualifiers: Rhabdomyolysis type: non-traumatic Qualified Code(s): M62.82 - Rhabdomyolysis (2) Weakness: -Right sided weakness, likely from acute CVA -Was evaluated for stroke on admission, -Presented outside of window, initial NIH stroke scale was 2, concerns for right upper/ lower extremity weakness, drift -Currently has bilateral lower extremity weakness, more profound on the right, right upper extremity weakness, clumsy right hand -Patient reports that he is always slightly more weak on the right compared to the left, with his CIDP, and but more profound in the last few days after the events 12/31/2024, his right leg has given out, also has right arm weakness it is more -Has more for profound right-sided weakness especially in his right lower extremity this morning, slight right facial droop, does have stuttering, right arm hand clumsiness and a stroke scale 6 -Acute CVA, right-sided weakness MRI brain MR/MR head wo con* [id number] IMPRESSION: 1. 12 mm area acute ischemia involving the LEFT swenson radiata and posterior limb LEFT internal capsule corresponding to the CTa findings. 2. Mild associated edema with the area of infarct. 3. No significant mass effect or midline shift. -CT no acute findings - PT/OT evaluation when CK levels improve - Serial neuro checks - Aspirin - No statin due to rhabdomyolysis, resume CPK -cardiac echo pending -CTA head and neck shows evidence of acute CVA in the posterior left lentiform nucleus, inferior swenson radiata -CT lumbar spine CT/CT lumbar spine wo con* [id number] IMPRESSION: 1. No acute lumbar spine fracture. 2. L4-5: Moderate to severe central with bilateral subarticular recess and mild foraminal stenosis. Disc encroachment upon the traversing L5 nerve roots. 3. L3-4: Mild central, subarticular recess and foraminal stenosis. Greater encroachment upon the LEFT traversing L4 nerve root. 4. L2-3: Mild LEFT foraminal stenosis. 5. L5-S1: Mild bilateral foraminal stenosis -Telemetry monitoring, permissive hypertension -Neurochecks, NIH stroke scale (3) CIDP (chronic inflammatory demyelinating polyneuropathy): Followed in the outpatient setting by Dr. Jon. Has been on Vyvgart infusions with some improvement in functional status until acute weakness this weekend. Vyvgart is not known to be associated with rhabomyolysis on review of on line resources. -Not a candidate for blood products given patient's a Hindu (4) Hypertension: Chronically on amlodipine -hold Qualifiers: Hypertension type: primary hypertension Qualified Code(s): I10 - Essential (primary) hypertension (5) History of tachycardia: Chronically on nadolol due to history of fast heart rate, details unknown. He has been on this medication since at least 2012. - tele monitoring (6) Diabetes mellitus, type II: Chronically on metformin - Holding Metformin while in hospital - Sliding scale insulin if needed - Check A1c 6.7 Qualifiers: Diabetes mellitus chcf insulin use: without termite renewal inspector use Diabetes mellitus complication status: with hyperglycemia Qualified Code(s): E11.65 - Type 2 diabetes mellitus with hyperglycemia (7) Generalized anxiety disorder: On chronic hydralazine and clonazepam as needed and takes Paxil and mirtazepine - Holding home hydroxyzine given rhabdomyolysis currently - Continue clonazepam at a lower dose until renal function stabilized - Continuing home Paxil - Hold mirtazepine presently (8) Abrasion, right lower leg, initial encounter: Present on admission, from chair/sliding down chair - Triple antibiotic ointment (9) Acute CVA (cerebrovascular accident): - as above - MR/MR head wo con* [id number] IMPRESSION: 1. 12 mm area acute ischemia involving the LEFT swenson radiata and posterior limb LEFT internal capsule corresponding to the CTa findings. 2. Mild associated edema with the area of infarct. 3. No significant mass effect or midline shift. -Right-sided weakness, clumsy right hand, slight right facial droop, word finding difficulty Plan VTE prophylaxis: Lovenox Antibiotics: none Telemetry: Mendoza: not currently indicated Line(s): peripheral IVs Disposition plan: Currently anticipate he may need skilled placement for physical therapy and lab monitoring post acute rhabdomyolysis in setting of known CIPD. He lives alone so will need consideration of assistance needs upon eventual discharge back to home setting. Does have involved family and neighbors. Would benefit from life alert or similar device. Code Status: Full Code Supportive care otherwise Findings, concerns and plans were discussed with patient and his nephew (who has DPOA) and both were given an opportunity to ask questions Plan for today, PT OT, permissive hypertension, aspirin, speech therapy eval PDMP PDMP Reviewed: Not Reviewed Attestations 2 Medical Necessity Statement*: Patient requires hospitalization for acute CVA Diagnoses Non-traumatic rhabdomyolysis M62.82 Rhabdomyolysis type: non-traumatic Weakness R53.1 CIDP (chronic inflammatory demyelinating polyneuropathy) G61.81 Primary hypertension I10 Hypertension type: primary hypertension History of tachycardia Z87.898 Type 2 diabetes mellitus with hyperglycemia, without long-term current use of insulin E11.65 Diabetes mellitus termite renewal inspector insulin use: without chcf use Diabetes mellitus complication status: with hyperglycemia Generalized anxiety disorder F41.1 Abrasion, right lower leg, initial encounter [id number] Acute CVA (cerebrovascular accident) I63.9
[2025-01-03 20:58] LABS: Glucose Point of Care 146 mg/dL (70-110)
[2025-01-03] MEDS: enoxaparin 40 mg/0.4 mL Syringe SUBCUT (21:20)
[2025-01-04] VITALS (8 sets, daily range): BP systolic 150–165; BP diastolic 88–106; PULSE 71–86; RESP 15–18; TEMP 36.4–37.6; O2SAT 90–92
[2025-01-04 05:55] LABS: Basophils % 0.4 %; Eosinophils # 0.1 10^3/uL (0.0-0.8); Eosinophils % 1.1 %; Hematocrit 45.1 % (37-53); Lymphocytes # 3.5 10^3/uL (0.8-4.8); Lymphocytes % 35.6 %; Mean Corpuscular HGB Conc 31.5 g/dL (30-55); Mean Corpuscular Hemoglobin 28.1 pg (27-33); Mean Corpuscular Volume 89.3 fl (82-101); Mean Platelet Volume 10.1 fL (7.4-10.4); Monocytes # 1.1 10^3/uL (0.2-0.9); Monocytes % 10.8 %; Neutrophils # 5.05 10^3/uL (1.8-7.7); Neutrophils % 51.9 %; Nucleated Red Blood Cells % 0 %; Platelet Count 211 10^3/cmm (157-399); Red Blood Count 5.05 10^6/uL (3.85-5.65); Red Cell Distribution Width 13.9 % (12.1-15.1); White Blood Count 9.73 10^3/uL (3.29-11.43)
[2025-01-04 06:17] LABS: Anion Gap 13.8 (5-19); Blood Urea Nitrogen 13 mg/dL (8-23); Calcium 9.4 mg/dL (8.5-10.5); Carbon Dioxide 29 mmol/L (22-29); Chloride 102 mmol/L (98-107); Creatinine Clr Calc Pharmacy 80.0423; Glucose 138 mg/dL (65-115); Osmolality Calculated 294 mOsm/kg (285-295); Potassium 3.8 mmol/L (3.5-5.1); Sodium 141 mmol/L (136-145)
[2025-01-04 06:41] LABS: Glucose Point of Care 141 mg/dL (70-110)
[2025-01-04] MEDS: insulin lispro 100 unit/1 mL SUBCUT ×4 (09:47→20:33)
[2025-01-04] MEDS: neomycin-poly-bacitracin oint 28 gm 1 APPLIC TOPICAL ×2 (09:47→17:59)
[2025-01-04] MEDS: PARoxetine 20 mg Tablet 40 MG PO (09:47)
[2025-01-04] MEDS: aspirin 81 mg EC Tablet PO (09:47)
[2025-01-04] MEDS: gabapentin 300 mg Capsule PO ×3 (09:47→20:34)
[2025-01-04] MEDS: neomycin-poly-dex Op 5 mL Btl 1 DROP EYE-BOTH ×3 (09:48→20:33)
[2025-01-04 11:07] LABS: Glucose Point of Care 174 mg/dL (70-110)
--- NOTE | 2025-01-04 14:51 | P.PN_ITS ---
Subjective 2 Subjective: Patient was seen this morning, he is alert oriented x 3, following all commands, tells me that his right hand weakness is improving however he continues to be disappointed about his right lower extremity weakness, Vitals/I&O/Wt Last Vital Signs Temp 98.1 F 01/04/25 11:13 Pulse 81 01/04/25 11:13 Resp 17 01/04/25 07:36 BP 153/88 01/04/25 11:13 Pulse Ox 91 01/04/25 11:13 O2 Del Method Room Air 01/04/25 11:13 01/03/25 01/04/25 01/04/25 22:59 06:59 14:59 Intake Total 410 / 1890 240 / 240 Balance 410 / 1890 240 / 240 Weight last 48 hrs Weight 96.162 kg Weight 92.487 kg Physical Exam 2 Const: COMMON NORMALS: no acute distress and patient oriented x3 Eye: COMMON NORMALS: Equal, round and reactive pupils present PUPIL: Yes Equal, round and reactive pupils present Neck/C-Spine: COMMON NORMALS: no JVD Resp: COMMON NORMALS: normal respiratory effort, No retractions, No use of accessory muscles and clear to auscultation bilaterally AUSCULTATION: clear to auscultation bilaterally Cardio: COMMON NORMALS: no JVD, regular rate, regular rhythm, S1 normal heart sound present and S2 normal heart sound present RATE: regular rate RHYTHM: regular rhythm HEART SOUNDS: S1 normal heart sound present and S2 normal heart sound present GI: COMMON NORMALS: Normal to inspection, nondistended, normoactive bowel sounds present and non-tender Extremity: COMMON NORMALS: no pedal edema Neuro: COMMON NORMALS: patient oriented x3 OTHER: Right facial droop improved Minimal strength Right upper extremity strength, clumsy hand Right lower extremity strength persists Data 01/04/25 05:43 01/04/25 05:43 A&P Assessment and plan (1) Rhabdomyolysis: - Likely secondary to immobility, falls Stopped fluids -Will monitor CPK 825 Qualifiers: Rhabdomyolysis type: non-traumatic Qualified Code(s): M62.82 - Rhabdomyolysis (2) Weakness: -Right sided weakness, likely from acute CVA -Was evaluated for stroke on admission, -Presented outside of window, initial NIH stroke scale was 2, concerns for right upper/ lower extremity weakness, drift -Currently has bilateral lower extremity weakness, more profound on the right, right upper extremity weakness, clumsy right hand -Patient reports that he is always slightly more weak on the right compared to the left, with his CIDP, and but more profound in the last few days after the events 12/31/2024, his right leg has given out, also has right arm weakness it is more -Has more for profound right-sided weakness especially in his right lower extremity this morning, slight right facial droop, does have stuttering, right arm hand clumsiness and a stroke scale 6 -Acute CVA, right-sided weakness MRI brain MR/MR head wo con* [id number] IMPRESSION: 1. 12 mm area acute ischemia involving the LEFT swenson radiata and posterior limb LEFT internal capsule corresponding to the CTa findings. 2. Mild associated edema with the area of infarct. 3. No significant mass effect or midline shift. -CT no acute findings - PT/OT evaluation when CK levels improve - Serial neuro checks - Aspirin - No statin due to rhabdomyolysis, resume CPK -cardiac echo pending -CTA head and neck shows evidence of acute CVA in the posterior left lentiform nucleus, inferior swenson radiata -CT lumbar spine CT/CT lumbar spine wo con* [id number] IMPRESSION: 1. No acute lumbar spine fracture. 2. L4-5: Moderate to severe central with bilateral subarticular recess and mild foraminal stenosis. Disc encroachment upon the traversing L5 nerve roots. 3. L3-4: Mild central, subarticular recess and foraminal stenosis. Greater encroachment upon the LEFT traversing L4 nerve root. 4. L2-3: Mild LEFT foraminal stenosis. 5. L5-S1: Mild bilateral foraminal stenosis -Telemetry monitoring, permissive hypertension -Neurochecks, NIH stroke scale (3) CIDP (chronic inflammatory demyelinating polyneuropathy): Followed in the outpatient setting by Dr. Jon. Has been on Vyvgart infusions with some improvement in functional status until acute weakness this weekend. Vyvgart is not known to be associated with rhabomyolysis on review of on line resources. -Not a candidate for blood products given patient's a [employer] (4) Hypertension: Chronically on amlodipine -Present Qualifiers: Hypertension type: primary hypertension Qualified Code(s): I10 - Essential (primary) hypertension (5) History of tachycardia: Chronically on nadolol due to history of fast heart rate, details unknown. He has been on this medication since at least 2012. - tele monitoring (6) Diabetes mellitus, type II: Chronically on metformin - Holding Metformin while in hospital - Sliding scale insulin if needed - Check A1c 6.7 Qualifiers: Diabetes mellitus chcf insulin use: without long chain dyeing machine operator use Diabetes mellitus complication status: with hyperglycemia Qualified Code(s): E11.65 - Type 2 diabetes mellitus with hyperglycemia (7) Generalized anxiety disorder: On chronic hydralazine and clonazepam as needed and takes Paxil and mirtazepine - Holding home hydroxyzine given rhabdomyolysis currently - Continue clonazepam at a lower dose until renal function stabilized - Continuing home Paxil - Hold mirtazepine presently (8) Abrasion, right lower leg, initial encounter: Present on admission, from chair/sliding down chair - Triple antibiotic ointment (9) Acute CVA (cerebrovascular accident): - as above - MR/MR head wo con* [id number] IMPRESSION: 1. 12 mm area acute ischemia involving the LEFT swenson radiata and posterior limb LEFT internal capsule corresponding to the CTa findings. 2. Mild associated edema with the area of infarct. 3. No significant mass effect or midline shift. -Right-sided weakness, clumsy right hand, slight right facial droop, word finding difficulty Plan VTE prophylaxis: Lovenox Antibiotics: none Telemetry: Mendoza: not currently indicated Line(s): peripheral IVs Disposition plan: Currently anticipate he may need skilled placement for physical therapy and lab monitoring post acute rhabdomyolysis in setting of known CIPD. He lives alone so will need consideration of assistance needs upon eventual discharge back to home setting. Does have involved family and neighbors. Would benefit from life alert or similar device. Code Status: Full Code Supportive care otherwise Findings, concerns and plans were discussed with patient and his nephew (who has DPOA) and both were given an opportunity to ask questions Plan for today, PT OT, permissive hypertension, aspirin, speech therapy eval PDMP PDMP Reviewed: Not Reviewed Attestations 2 Medical Necessity Statement*: Patient requires hospitalization for acute CVA Diagnoses Non-traumatic rhabdomyolysis M62.82 Rhabdomyolysis type: non-traumatic Weakness R53.1 CIDP (chronic inflammatory demyelinating polyneuropathy) G61.81 Primary hypertension I10 Hypertension type: primary hypertension History of tachycardia Z87.898 Type 2 diabetes mellitus with hyperglycemia, without long-term current use of insulin E11.65 Diabetes mellitus long chain dyeing machine operator insulin use: without chcf use Diabetes mellitus complication status: with hyperglycemia Generalized anxiety disorder F41.1 Abrasion, right lower leg, initial encounter S80.811A Acute CVA (cerebrovascular accident) I63.9
[2025-01-04 17:06] LABS: Glucose Point of Care 148 mg/dL (70-110)
[2025-01-04 20:23] LABS: Glucose Point of Care 169 mg/dL (70-110)
[2025-01-04] MEDS: enoxaparin 40 mg/0.4 mL Syringe SUBCUT (20:34)
[2025-01-05] VITALS (7 sets, daily range): BP systolic 145–173; BP diastolic 78–100; PULSE 78–99; RESP 16–18; TEMP 36.4–36.7; O2SAT 90–95
[2025-01-05 05:56] LABS: Basophils # 0.1 10^3/uL (0.0-0.1); Basophils % 0.6 %; Eosinophils # 0.1 10^3/uL (0.0-0.8); Eosinophils % 1.5 %; Hematocrit 46.7 % (37-53); Lymphocytes # 2.7 10^3/uL (0.8-4.8); Lymphocytes % 31.5 %; Mean Corpuscular HGB Conc 32.1 g/dL (30-55); Mean Corpuscular Hemoglobin 28.2 pg (27-33); Mean Corpuscular Volume 87.8 fl (82-101); Mean Platelet Volume 10.1 fL (7.4-10.4); Monocytes % 12.1 %; Neutrophils # 4.64 10^3/uL (1.8-7.7); Neutrophils % 54.1 %; Nucleated Red Blood Cells % 0 %; Platelet Count 232 10^3/cmm (157-399); Red Blood Count 5.32 10^6/uL (3.85-5.65); Red Cell Distribution Width 13.6 % (12.1-15.1); White Blood Count 8.59 10^3/uL (3.29-11.43)
[2025-01-05 06:35] LABS: Glucose Point of Care 149 mg/dL (70-110)
[2025-01-05 06:35] LABS: Anion Gap 15.8 (5-19); Blood Urea Nitrogen 14 mg/dL (8-23); Calcium 9.6 mg/dL (8.5-10.5); Carbon Dioxide 29 mmol/L (22-29); Chloride 100 mmol/L (98-107); Creatinine Clr Calc Pharmacy 80.0423; Glucose 154 mg/dL (65-115); Osmolality Calculated 296 mOsm/kg (285-295); Potassium 3.8 mmol/L (3.5-5.1); Sodium 141 mmol/L (136-145)
[2025-01-05] MEDS: PARoxetine 20 mg Tablet 40 MG PO (08:53)
[2025-01-05] MEDS: aspirin 81 mg EC Tablet PO (08:53)
[2025-01-05] MEDS: neomycin-poly-dex Op 5 mL Btl 1 DROP EYE-BOTH ×3 (08:53→20:54)
[2025-01-05] MEDS: insulin lispro 100 unit/1 mL SUBCUT ×3 (08:53→18:25)
[2025-01-05] MEDS: amlodipine 5 mg Tablet PO (08:53)
[2025-01-05] MEDS: gabapentin 300 mg Capsule PO ×3 (08:53→20:54)
[2025-01-05] MEDS: neomycin-poly-bacitracin oint 28 gm 1 APPLIC TOPICAL (08:54)
--- NOTE | 2025-01-05 10:40 | PC.NURSE ---
customer relations coordinator rounds- 01/02 gave patient stroke education book, 01/03 patient had just worked with therapy and was sitting in the chair, stated he is still very weak, words are stuttering.
[2025-01-05 11:36] LABS: Glucose Point of Care 148 mg/dL (70-110)
--- NOTE | 2025-01-05 13:54 | P.PN_ITS ---
Subjective 2 Subjective: Patient was seen this morning, he is alert to person, to place, to time he can follow commands, he is a bit frustrated about his lack of improvement of his right lower extremities, right upper extremity strength continues to improve, and a detailed discussion yesterday about his vyvagard, he tells me that he wants to hold this medication, and his nephew agrees to hold this medication, her morbidity mortality discussed, he voiced understanding, all questions are, he tells me that he has not noticed any significant difference, nonetheless I would recommend for him to continue to take it for his CIDP as currently there is no other significant options Vitals/I&O/Wt Last Vital Signs Temp 97.9 F 01/05/25 11:39 Pulse 99 01/05/25 11:39 Resp 18 01/05/25 11:39 BP 153/88 01/05/25 11:39 Pulse Ox 92 01/05/25 11:39 O2 Del Method Room Air 01/05/25 11:39 01/04/25 01/05/25 01/05/25 22:59 06:59 14:59 Intake Total 240 / 480 360 / 360 Balance 240 / 480 360 / 360 Weight last 48 hrs Weight 96.162 kg Physical Exam 2 Const: COMMON NORMALS: no acute distress and patient oriented x3 Resp: COMMON NORMALS: normal respiratory effort, No retractions, No use of accessory muscles and clear to auscultation bilaterally AUSCULTATION: clear to auscultation bilaterally Cardio: COMMON NORMALS: regular rate, regular rhythm, S1 normal heart sound present and S2 normal heart sound present RATE: regular rate RHYTHM: r egular rhythm HEART SOUNDS: S1 normal heart sound present and S2 normal heart sound present GI: COMMON NORMALS: Normal to inspection, nondistended, normoactive bowel sounds present and non-tender Extremity: COMMON NORMALS: no pedal edema Neuro: COMMON NORMALS: patient oriented x3 Psych: COMMON NORMALS: mental status grossly normal Data 01/05/25 05:38 01/05/25 05:38 A&P Assessment and plan (1) Rhabdomyolysis: - Likely secondary to immobility, falls Stopped fluids -Will monitor CPK 825 Qualifiers: Rhabdomyolysis type: non-traumatic Qualified Code(s): M62.82 - Rhabdomyolysis (2) Weakness: -Right sided weakness, likely from acute CVA -Was evaluated for stroke on admission, -Presented outside of window, initial NIH stroke scale was 2, concerns for right upper/ lower extremity weakness, drift -Currently has bilateral lower extremity weakness, more profound on the right, right upper extremity weakness, clumsy right hand -Patient reports that he is always slightly more weak on the right compared to the left, with his CIDP, and but more profound in the last few days after the events 12/31/2024, his right leg has given out, also has right arm weakness it is more -Has more for profound right-sided weakness especially in his right lower extremity this morning, slight right facial droop, does have stuttering, right arm hand clumsiness and a stroke scale 6 -Acute CVA, right-sided weakness MRI brain MR/MR head wo con* [id number] IMPRESSION: 1. 12 mm area acute ischemia involving the LEFT swenson radiata and posterior limb LEFT internal capsule corresponding to the CTa findings. 2. Mild associated edema with the area of infarct. 3. No significant mass effect or midline shift. -CT no acute findings - PT/OT evaluation when CK levels improve - Serial neuro checks - Aspirin - No statin due to rhabdomyolysis, resume CPK -cardiac echo pending -CTA head and neck shows evidence of acute CVA in the posterior left lentiform nucleus, inferior swenson radiata -CT lumbar spine CT/CT lumbar spine wo con* [id number] IMPRESSION: 1. No acute lumbar spine fracture. 2. L4-5: Moderate to severe central with bilateral subarticular recess and mild foraminal stenosis. Disc encroachment upon the traversing L5 nerve roots. 3. L3-4: Mild central, subarticular recess and foraminal stenosis. Greater encroachment upon the LEFT traversing L4 nerve root. 4. L2-3: Mild LEFT foraminal stenosis. 5. L5-S1: Mild bilateral foraminal stenosis -Telemetry monitoring, permissive hypertension -Neurochecks, NIH stroke scale (3) CIDP (chronic inflammatory demyelinating polyneuropathy): Followed in the outpatient setting by Dr. Jon. Has been on Vyvgart infusions with some improvement in functional status until acute weakness this weekend. Vyvgart is not known to be associated with rhabomyolysis on review of on line resources. -Not a candidate for blood products given patient's a [employer] (4) Hypertension: Chronically on amlodipine -Present Qualifiers: Hypertension type: primary hypertension Qualified Code(s): I10 - Essential (primary) hypertension (5) History of tachycardia: Chronically on nadolol due to history of fast heart rate, details unknown. He has been on this medication since at least 2012. - tele monitoring (6) Diabetes mellitus, type II: Chronically on metformin - Holding Metformin while in hospital - Sliding scale insulin if needed - Check A1c 6.7 Qualifiers: Diabetes mellitus shelter insulin use: without shelter use Diabetes mellitus complication status: with hyperglycemia Qualified Code(s): E11.65 - Type 2 diabetes mellitus with hyperglycemia (7) Generalized anxiety disorder: On chronic hydralazine and clonazepam as needed and takes Paxil and mirtazepine - Holding home hydroxyzine given rhabdomyolysis currently - Continue clonazepam at a lower dose until renal function stabilized - Continuing home Paxil - Hold mirtazepine presently (8) Abrasion, right lower leg, initial encounter: Present on admission, from chair/sliding down chair - Triple antibiotic ointment (9) Acute CVA (cerebrovascular accident): - as above - MR/MR head wo con* [id number] IMPRESSION: 1. 12 mm area acute ischemia involving the LEFT swenson radiata and posterior limb LEFT internal capsule corresponding to the CTa findings. 2. Mild associated edema with the area of infarct. 3. No significant mass effect or midline shift. -Right-sided weakness, clumsy right hand, slight right facial droop, word finding difficulty Plan VTE prophylaxis: Lovenox Antibiotics: none Telemetry: Mendoza: not currently indicated Line(s): peripheral IVs Disposition plan: Currently anticipate he may need skilled placement for physical therapy and lab monitoring post acute rhabdomyolysis in setting of known CIPD. He lives alone so will need consideration of assistance needs upon eventual discharge back to home setting. Does have involved family and neighbors. Would benefit from life alert or similar device. Code Status: Full Code Supportive care otherwise Findings, concerns and plans were discussed with patient and his nephew (who has DPOA) and both were given an opportunity to ask questions Plan for today, PT OT,, aspirin, speech therapy eval PDMP PDMP Reviewed: Not Reviewed Attestations 2 Medical Necessity Statement*: Patient requires hospitalization for acute CVA Diagnoses Non-traumatic rhabdomyolysis M62.82 Rhabdomyolysis type: non-traumatic Weakness R53.1 CIDP (chronic inflammatory demyelinating polyneuropathy) G61.81 Primary hypertension I10 Hypertension type: primary hypertension History of tachycardia Z87.898 Type 2 diabetes mellitus with hyperglycemia, without long-term current use of insulin E11.65 Diabetes mellitus shelter insulin use: without shelter use Diabetes mellitus complication status: with hyperglycemia Generalized anxiety disorder F41.1 Abrasion, right lower leg, initial encounter S80.811A Acute CVA (cerebrovascular accident) I63.9
[2025-01-05 17:09] LABS: Glucose Point of Care 150 mg/dL (70-110)
[2025-01-05] MEDS: CLONazepam 0.5 mg Tablet 0.25 MG PO (20:53)
[2025-01-05 20:54] LABS: Glucose Point of Care 173 mg/dL (70-110)
[2025-01-05] MEDS: enoxaparin 40 mg/0.4 mL Syringe SUBCUT (20:54)
[2025-01-06] VITALS (10 sets, daily range): BP systolic 116–148; BP diastolic 73–90; PULSE 77–93; RESP 15–18; TEMP 36.4–36.9; O2SAT 91–95
[2025-01-06 05:02] LABS: Basophils # 0.1 10^3/uL (0.0-0.1); Basophils % 0.6 %; Eosinophils # 0.1 10^3/uL (0.0-0.8); Eosinophils % 1.7 %; Hematocrit 48.7 % (37-53); Lymphocytes # 3.1 10^3/uL (0.8-4.8); Lymphocytes % 39.4 %; Mean Corpuscular HGB Conc 31.2 g/dL (30-55); Mean Corpuscular Hemoglobin 27.7 pg (27-33); Mean Corpuscular Volume 88.9 fl (82-101); Mean Platelet Volume 10.3 fL (7.4-10.4); Monocytes # 0.9 10^3/uL (0.2-0.9); Monocytes % 11.9 %; Neutrophils # 3.63 10^3/uL (1.8-7.7); Neutrophils % 46.1 %; Nucleated Red Blood Cells % 0 %; Platelet Count 248 10^3/cmm (157-399); Red Blood Count 5.48 10^6/uL (3.85-5.65); Red Cell Distribution Width 13.4 % (12.1-15.1); White Blood Count 7.87 10^3/uL (3.29-11.43)
[2025-01-06 05:19] LABS: Anion Gap 13.1 (5-19); Blood Urea Nitrogen 16 mg/dL (8-23); Calcium 9.8 mg/dL (8.5-10.5); Carbon Dioxide 29 mmol/L (22-29); Chloride 101 mmol/L (98-107); Creatinine Clr Calc Pharmacy 78.5698; Glucose 145 mg/dL (65-115); Osmolality Calculated 292 mOsm/kg (285-295); Potassium 4.1 mmol/L (3.5-5.1); Sodium 139 mmol/L (136-145)
[2025-01-06 06:28] LABS: Glucose Point of Care 168 mg/dL (70-110)
[2025-01-06] MEDS: insulin lispro 100 unit/1 mL SUBCUT ×3 (07:55→17:23)
[2025-01-06] MEDS: amlodipine 5 mg Tablet PO (07:56)
[2025-01-06] MEDS: gabapentin 300 mg Capsule PO ×3 (07:56→19:59)
[2025-01-06] MEDS: aspirin 81 mg EC Tablet PO (07:56)
[2025-01-06] MEDS: PARoxetine 20 mg Tablet 40 MG PO (07:56)
[2025-01-06] MEDS: neomycin-poly-bacitracin oint 28 gm 1 APPLIC TOPICAL ×2 (08:00→17:23)
[2025-01-06] MEDS: neomycin-poly-dex Op 5 mL Btl 1 DROP EYE-BOTH ×3 (08:00→19:59)
[2025-01-06 11:39] LABS: Glucose Point of Care 146 mg/dL (70-110)
--- NOTE | 2025-01-06 14:34 | P.PN_ITS ---
Subjective 2 Subjective: Patient was seen this morning, he is alert to person, place, not to time, there was concerns for choking/aspiration this morning, he was changed to dysphagia diet, he denies any choking, no coughing, no globus sensation, Vitals/I&O/Wt Last Vital Signs Temp 97.8 F 01/06/25 12:10 Pulse 93 01/06/25 14:00 Resp 16 01/06/25 12:10 BP 133/90 01/06/25 12:10 Pulse Ox 91 01/06/25 12:10 O2 Del Method Room Air 01/06/25 12:10 01/05/25 01/06/25 01/06/25 22:59 06:59 14:59 Intake Total 240 / 600 500 / 1100 240 / 240 Balance 240 / 600 500 / 1100 240 / 240 Weight last 48 hrs Weight 92.442 kg Physical Exam 2 Const: COMMON NORMALS: no acute distress and patient oriented x3 Resp: COMMON NORMALS: normal respiratory effort, No retractions, No use of accessory muscles and clear to auscultation bilaterally AUSCULTATION: clear to auscultation bilaterally Cardio: COMMON NORMALS: regular rate, regular rhythm, S1 normal heart sound present and S2 normal heart sound present RATE: regular rate RHYTHM: r egular rhythm HEART SOUNDS: S1 normal heart sound present and S2 normal heart sound present GI: COMMON NORMALS: Normal to inspection, nondistended, normoactive bowel sounds present and non-tender Extremity: COMMON NORMALS: no pedal edema Neuro: COMMON NORMALS: patient oriented x3 Psych: COMMON NORMALS: mental status grossly normal Data 01/06/25 04:44 01/06/25 04:44 A&P Assessment and plan (1) Rhabdomyolysis: - Likely secondary to immobility, falls Stopped fluids -Will monitor CPK 825 Qualifiers: Rhabdomyolysis type: non-traumatic Qualified Code(s): M62.82 - Rhabdomyolysis (2) Weakness: -Right sided weakness, likely from acute CVA -Was evaluated for stroke on admission, -Presented outside of window, initial NIH stroke scale was 2, concerns for right upper/ lower extremity weakness, drift -Currently has bilateral lower extremity weakness, more profound on the right, right upper extremity weakness, clumsy right hand -Patient reports that he is always slightly more weak on the right compared to the left, with his CIDP, and but more profound in the last few days after the events 12/31/2024, his right leg has given out, also has right arm weakness it is more -Has more for profound right-sided weakness especially in his right lower extremity this morning, slight right facial droop, does have stuttering, right arm hand clumsiness and a stroke scale 6 -Acute CVA, right-sided weakness MRI brain MR/MR head wo con* [id number] IMPRESSION: 1. 12 mm area acute ischemia involving the LEFT swenson radiata and posterior limb LEFT internal capsule corresponding to the CTa findings. 2. Mild associated edema with the area of infarct. 3. No significant mass effect or midline shift. -CT no acute findings - PT/OT evaluation when CK levels improve - Serial neuro checks - Aspirin - No statin due to rhabdomyolysis, resume CPK -cardiac echo pending -CTA head and neck shows evidence of acute CVA in the posterior left lentiform nucleus, inferior swenson radiata -CT lumbar spine CT/CT lumbar spine wo con* [id number] IMPRESSION: 1. No acute lumbar spine fracture. 2. L4-5: Moderate to severe central with bilateral subarticular recess and mild foraminal stenosis. Disc encroachment upon the traversing L5 nerve roots. 3. L3-4: Mild central, subarticular recess and foraminal stenosis. Greater encroachment upon the LEFT traversing L4 nerve root. 4. L2-3: Mild LEFT foraminal stenosis. 5. L5-S1: Mild bilateral foraminal stenosis -Telemetry monitoring, permissive hypertension -Neurochecks, NIH stroke scale (3) CIDP (chronic inflammatory demyelinating polyneuropathy): Followed in the outpatient setting by Dr. Jon. Has been on Vyvgart infusions with some improvement in functional status until acute weakness this weekend. Vyvgart is not known to be associated with rhabomyolysis on review of on line resources. -Not a candidate for blood products given patient's a [employer] (4) Hypertension: Chronically on amlodipine -Present Qualifiers: Hypertension type: primary hypertension Qualified Code(s): I10 - Essential (primary) hypertension (5) History of tachycardia: Chronically on nadolol due to history of fast heart rate, details unknown. He has been on this medication since at least 2012. - tele monitoring (6) Diabetes mellitus, type II: Chronically on metformin - Holding Metformin while in hospital - Sliding scale insulin if needed - Check A1c 6.7 Qualifiers: Diabetes mellitus mcfp insulin use: without mcfp use Diabetes mellitus complication status: with hyperglycemia Qualified Code(s): E11.65 - Type 2 diabetes mellitus with hyperglycemia (7) Generalized anxiety disorder: On chronic hydralazine and clonazepam as needed and takes Paxil and mirtazepine - Holding home hydroxyzine given rhabdomyolysis currently - Continue clonazepam at a lower dose until renal function stabilized - Continuing home Paxil - Hold mirtazepine presently (8) Abrasion, right lower leg, initial encounter: Present on admission, from chair/sliding down chair - Triple antibiotic ointment (9) Acute CVA (cerebrovascular accident): - as above - MR/MR head wo con* [id number] IMPRESSION: 1. 12 mm area acute ischemia involving the LEFT swenson radiata and posterior limb LEFT internal capsule corresponding to the CTa findings. 2. Mild associated edema with the area of infarct. 3. No significant mass effect or midline shift. -Right-sided weakness, clumsy right hand, slight right facial droop, word finding difficulty Concerns for aspiration event, speech therapy eval, aspiration precautions, start Rocephin, dysphagia diet Plan VTE prophylaxis: Lovenox Antibiotics: none Telemetry: Mendoza: not currently indicated Line(s): peripheral IVs Disposition plan: Currently anticipate he may need skilled placement for physical therapy and lab monitoring post acute rhabdomyolysis in setting of known CIPD. He lives alone so will need consideration of assistance needs upon eventual discharge back to home setting. Does have involved family and neighbors. Would benefit from life alert or similar device. Code Status: Full Code Supportive care otherwise Findings, concerns and plans were discussed with patient and his nephew (who has DPOA) and both were given an opportunity to ask questions Plan for today, PT OT,, aspirin, speech therapy eval, switch to dysphagia diet, start Rocephin PDMP PDMP Reviewed: Not Reviewed Attestations 2 Medical Necessity Statement*: Patient requires hospitalization for acute CVA, concerns for aspiration event Diagnoses Non-traumatic rhabdomyolysis M62.82 Rhabdomyolysis type: non-traumatic Weakness R53.1 CIDP (chronic inflammatory demyelinating polyneuropathy) G61.81 Primary hypertension I10 Hypertension type: primary hypertension History of tachycardia Z87.898 Type 2 diabetes mellitus with hyperglycemia, without long-term current use of insulin E11.65 Diabetes mellitus intermodal customer service insulin use: without intermodal customer service use Diabetes mellitus complication status: with hyperglycemia Generalized anxiety disorder F41.1 Abrasion, right lower leg, initial encounter S80.811A Acute CVA (cerebrovascular accident) I63.9
[2025-01-06] MEDS: cefTRIAXone 1,000 mg SDV 1000 MG IVP (15:28)
[2025-01-06 17:02] LABS: Glucose Point of Care 145 mg/dL (70-110)
[2025-01-06] MEDS: enoxaparin 40 mg/0.4 mL Syringe SUBCUT (19:58)
[2025-01-06 20:47] LABS: Glucose Point of Care 166 mg/dL (70-110)
[2025-01-07] VITALS (7 sets, daily range): BP systolic 134–168; BP diastolic 76–94; PULSE 82–94; RESP 16–18; TEMP 36.5–36.7; O2SAT 91–94
[2025-01-07 05:15] LABS: Basophils # 0.1 10^3/uL (0.0-0.1); Basophils % 0.6 %; Eosinophils # 0.1 10^3/uL (0.0-0.8); Eosinophils % 1.3 %; Hematocrit 50.1 % (37-53); Lymphocytes % 36.5 %; Mean Corpuscular HGB Conc 31.1 g/dL (30-55); Mean Corpuscular Hemoglobin 27.7 pg (27-33); Mean Platelet Volume 10.5 fL (7.4-10.4); Monocytes % 11.5 %; Neutrophils % 49.9 %; Nucleated Red Blood Cells % 0 %; Platelet Count 247 10^3/cmm (157-399); Red Blood Count 5.63 10^6/uL (3.85-5.65); Red Cell Distribution Width 13.5 % (12.1-15.1); White Blood Count 8.24 10^3/uL (3.29-11.43)
[2025-01-07 05:32] LABS: Blood Urea Nitrogen 18 mg/dL (8-23); Calcium 10.1 mg/dL (8.5-10.5); Carbon Dioxide 31 mmol/L (22-29); Chloride 98 mmol/L (98-107); Creatinine Clr Calc Pharmacy 78.0132; Glucose 152 mg/dL (65-115); Osmolality Calculated 295 mOsm/kg (285-295); Sodium 140 mmol/L (136-145)
[2025-01-07 05:34] LABS: Anion Gap 15.3 (5-19); Potassium 4.3 mmol/L (3.5-5.1)
[2025-01-07 06:33] LABS: Glucose Point of Care 161 mg/dL (70-110)
[2025-01-07] MEDS: insulin lispro 100 unit/1 mL SUBCUT ×4 (08:24→20:54)
[2025-01-07] MEDS: neomycin-poly-dex Op 5 mL Btl 1 DROP EYE-BOTH ×3 (08:25→20:04)
[2025-01-07] MEDS: neomycin-poly-bacitracin oint 28 gm 1 APPLIC TOPICAL ×2 (08:25→17:31)
[2025-01-07] MEDS: gabapentin 300 mg Capsule PO ×3 (08:26→20:03)
[2025-01-07] MEDS: amlodipine 5 mg Tablet PO (08:26)
[2025-01-07] MEDS: PARoxetine 20 mg Tablet 40 MG PO (08:26)
[2025-01-07] MEDS: aspirin 81 mg EC Tablet PO (08:26)
[2025-01-07 11:44] LABS: Glucose Point of Care 175 mg/dL (70-110)
--- NOTE | 2025-01-07 15:50 | P.PN_ITS ---
Subjective 2 Subjective: No reported episode choking or coughing this morning no episodes of aspiration, no globus sensation, no fevers, no chills, he remains frustrated due to decreased right lower extremity progress from his stroke, but is able to shake my hand, strength of his arm right upper extremity is significantly improved Vitals/I&O/Wt Last Vital Signs Temp 97.9 F 01/07/25 15:36 Pulse 93 01/07/25 15:36 Resp 17 01/07/25 15:36 BP 134/80 01/07/25 15:36 Pulse Ox 94 01/07/25 15:36 O2 Del Method Room Air 01/07/25 15:36 01/07/25 01/07/25 01/07/25 06:59 14:59 22:59 Intake Total 720 / 720 Balance 720 / 720 Weight last 48 hrs Weight 91.036 kg Weight 92.442 kg Physical Exam 2 Const: COMMON NORMALS: no acute distress and patient oriented x3 Neck/C-Spine: COMMON NORMALS: no JVD Resp: COMMON NORMALS: normal respiratory effort, No retractions, No use of accessory muscles and clear to auscultation bilaterally AUSCULTATION: clear to auscultation bilaterally Cardio: COMMON NORMALS: no JVD, regular rate, regular rhythm, S1 normal heart sound present and S2 normal heart sound present RATE: regular rate RHYTHM: regular rhythm HEART SOUNDS: S1 normal heart sound present and S2 normal heart sound present GI: COMMON NORMALS: Normal to inspection, nondistended, normoactive bowel sounds present and non-tender Extremity: COMMON NORMALS: no pedal edema Neuro: COMMON NORMALS: patient oriented x3 Psych: COMMON NORMALS: mental status grossly normal Data 01/07/25 04:45 01/07/25 04:45 A&P Assessment and plan (1) Rhabdomyolysis: - Likely secondary to immobility, falls Stopped fluids -Will monitor CPK 825 Qualifiers: Rhabdomyolysis type: non-traumatic Qualified Code(s): M62.82 - Rhabdomyolysis (2) Weakness: -Right sided weakness, likely from acute CVA -Was evaluated for stroke on admission, -Presented outside of window, initial NIH stroke scale was 2, concerns for right upper/ lower extremity weakness, drift -Currently has bilateral lower extremity weakness, more profound on the right, right upper extremity weakness, clumsy right hand -Patient reports that he is always slightly more weak on the right compared to the left, with his CIDP, and but more profound in the last few days after the events 12/31/2024, his right leg has given out, also has right arm weakness it is more -Acute CVA, right-sided weakness MRI brain MR/MR head wo con* [id number] IMPRESSION: 1. 12 mm area acute ischemia involving the LEFT swenson radiata and posterior limb LEFT internal capsule corresponding to the CTa findings. 2. Mild associated edema with the area of infarct. 3. No significant mass effect or midline shift. -Right lower extremity weakness persist, right upper extremity strength improving -CT no acute findings - PT/OT evaluation when CK levels improve - Serial neuro checks - Aspirin - No statin due to rhabdomyolysis, resume CPK -cardiac echo pending -CTA head and neck shows evidence of acute CVA in the posterior left lentiform nucleus, inferior swenson radiata -CT lumbar spine CT/CT lumbar spine wo con* [id number] IMPRESSION: 1. No acute lumbar spine fracture. 2. L4-5: Moderate to severe central with bilateral subarticular recess and mild foraminal stenosis. Disc encroachment upon the traversing L5 nerve roots. 3. L3-4: Mild central, subarticular recess and foraminal stenosis. Greater encroachment upon the LEFT traversing L4 nerve root. 4. L2-3: Mild LEFT foraminal stenosis. 5. L5-S1: Mild bilateral foraminal stenosis -Telemetry monitoring, permissive hypertension -Neurochecks, NIH stroke scale (3) CIDP (chronic inflammatory demyelinating polyneuropathy): Followed in the outpatient setting by Dr. Jon. Has been on Vyvgart infusions with some improvement in functional status until acute weakness this weekend. Vyvgart is not known to be associated with rhabomyolysis on review of on line resources. -Not a candidate for blood products given patient's a Sabianist (4) Hypertension: Chronically on amlodipine -Present Qualifiers: Hypertension type: primary hypertension Qualified Code(s): I10 - Essential (primary) hypertension (5) History of tachycardia: Chronically on nadolol due to history of fast heart rate, details unknown. He has been on this medication since at least 2012. - tele monitoring (6) Diabetes mellitus, type II: Chronically on metformin - Holding Metformin while in hospital - Sliding scale insulin if needed - Check A1c 6.7 Qualifiers: Diabetes mellitus assisted insulin use: without assisted use Diabetes mellitus complication status: with hyperglycemia Qualified Code(s): E11.65 - Type 2 diabetes mellitus with hyperglycemia (7) Generalized anxiety disorder: On chronic hydralazine and clonazepam as needed and takes Paxil and mirtazepine - Holding home hydroxyzine given rhabdomyolysis currently - Continue clonazepam at a lower dose until renal function stabilized - Continuing home Paxil - Hold mirtazepine presently (8) Abrasion, right lower leg, initial encounter: Present on admission, from chair/sliding down chair - Triple antibiotic ointment (9) Acute CVA (cerebrovascular accident): - as above - MR/MR head wo con* [id number] IMPRESSION: 1. 12 mm area acute ischemia involving the LEFT swenson radiata and posterior limb LEFT internal capsule corresponding to the CTa findings. 2. Mild associated edema with the area of infarct. 3. No significant mass effect or midline shift. -Right-sided weakness, clumsy right hand, slight right facial droop, word finding difficulty Continue speech therapy eval, dysphagia level 7 diet Plan VTE prophylaxis: Lovenox Antibiotics: none Telemetry: Mendoza: not currently indicated Line(s): peripheral IVs Disposition plan: C usp placement Code Status: Full Code Supportive care otherwise Findings, concerns and plans were discussed with patient and his nephew (who has DPOA) and both were given an opportunity to ask questions Plan for today, PT OT,, aspirin, check CPK tomorrow will decide if we need to start patient on atorvastatin, continue Paxil, clonazepam PDMP PDMP Reviewed: Not Reviewed Attestations 2 Medical Necessity Statement*: Patient requires hospitalization for acute CVA, requiring inpatient PT OT Diagnoses Non-traumatic rhabdomyolysis M62.82 Rhabdomyolysis type: non-traumatic Weakness R53.1 CIDP (chronic inflammatory demyelinating polyneuropathy) G61.81 Primary hypertension I10 Hypertension type: primary hypertension History of tachycardia Z87.898 Type 2 diabetes mellitus with hyperglycemia, without long-term current use of insulin E11.65 Diabetes mellitus intermediate school teacher insulin use: without intermediate school teacher use Diabetes mellitus complication status: with hyperglycemia Generalized anxiety disorder F41.1 Abrasion, right lower leg, initial encounter S80.811A Acute CVA (cerebrovascular accident) I63.9
[2025-01-07 16:52] LABS: Glucose Point of Care 185 mg/dL (70-110)
[2025-01-07] MEDS: enoxaparin 40 mg/0.4 mL Syringe SUBCUT (19:32)
[2025-01-07 20:43] LABS: Glucose Point of Care 166 mg/dL (70-110)
[2025-01-08 04:00] VITALS: BP 145/89; PULSE 87; RESP 18; TEMP 36.6; O2SAT 93
[2025-01-08 05:05] VITALS: PULSE 84
[2025-01-08 06:04] LABS: Basophils # 0.1 10^3/uL (0.0-0.1); Basophils % 0.7 %; Eosinophils # 0.1 10^3/uL (0.0-0.8); Eosinophils % 1.3 %; Hematocrit 50.2 % (37-53); Lymphocytes # 2.8 10^3/uL (0.8-4.8); Lymphocytes % 32.4 %; Mean Corpuscular HGB Conc 31.7 g/dL (30-55); Mean Corpuscular Hemoglobin 28.4 pg (27-33); Mean Corpuscular Volume 89.6 fl (82-101); Mean Platelet Volume 10.4 fL (7.4-10.4); Monocytes # 1.1 10^3/uL (0.2-0.9); Neutrophils # 4.46 10^3/uL (1.8-7.7); Neutrophils % 52.2 %; Nucleated Red Blood Cells % 0 %; Platelet Count 255 10^3/cmm (157-399); Red Cell Distribution Width 13.4 % (12.1-15.1); White Blood Count 8.54 10^3/uL (3.29-11.43)
[2025-01-08 06:16] LABS: Anion Gap 15.1 (5-19); Blood Urea Nitrogen 19 mg/dL (8-23); Calcium 9.7 mg/dL (8.5-10.5); Carbon Dioxide 30 mmol/L (22-29); Chloride 97 mmol/L (98-107); Creatine Phosphokinase 51 U/L (39-308); Creatinine Clr Calc Pharmacy 77.8873; Glucose 180 mg/dL (65-115); Osmolality Calculated 293 mOsm/kg (285-295); Potassium 4.1 mmol/L (3.5-5.1); Sodium 138 mmol/L (136-145)
[2025-01-08 06:26] LABS: Glucose Point of Care 178 mg/dL (70-110)
[2025-01-08 07:41] VITALS: BP 149/83; PULSE 88; RESP 17; TEMP 36.4; O2SAT 91
[2025-01-08] MEDS: PARoxetine 20 mg Tablet 40 MG PO (08:14)
[2025-01-08] MEDS: insulin lispro 100 unit/1 mL SUBCUT ×2 (08:14→11:48)
[2025-01-08] MEDS: neomycin-poly-bacitracin oint 28 gm 1 APPLIC TOPICAL (08:14)
[2025-01-08] MEDS: gabapentin 300 mg Capsule PO (08:14)
[2025-01-08] MEDS: amlodipine 5 mg Tablet PO (08:14)
[2025-01-08] MEDS: aspirin 81 mg EC Tablet PO (08:14)
[2025-01-08] MEDS: neomycin-poly-dex Op 5 mL Btl 1 DROP EYE-BOTH (08:15)
--- NOTE | 2025-01-08 10:02 | PC.NURSE ---
Stroke corrdinator rounds @ 0955- patient in bed but awake and alert, states he has made the decision to go to SNF and will probably just stay there for safety.
--- NOTE | 2025-01-08 11:51 | P.DS_ITS ---
Discharge Providers Date of Admission: 01/01/25 14:57 Date of Discharge: January 08, 2025 Attending Provider at Admission: Judy Lauren MD Attending Provider at Discharge: Kimo Perdomo MD Primary Care Provider: Jaswinder Sorensen MD Diagnoses at Discharge Discharge Diagnosis (1) Rhabdomyolysis: Status: Resolved Qualifiers: Rhabdomyolysis type: non-traumatic Qualified Code(s): M62.82 - Rhabdomyolysis (2) Weakness: Status: Resolved (3) CIDP (chronic inflammatory demyelinating polyneuropathy): Status: Acute Permanent problem details: Has an IgG kappa monoclonal band on immunofixation but negative UPEP (4) Hypertension: Status: Chronic Qualifiers: Hypertension type: primary hypertension Qualified Code(s): I10 - Essential (primary) hypertension (5) History of tachycardia: Status: Resolved Permanent problem details: on nadol (6) Diabetes mellitus, type II: Status: Chronic Qualifiers: Diabetes mellitus complication status: with hyperglycemia Diabetes mellitus mcc insulin use: without local company intermodal truck driver use Qualified Code(s): E11.65 - Type 2 diabetes mellitus with hyperglycemia (7) Generalized anxiety disorder: Status: Chronic (8) Abrasion, right lower leg, initial encounter: Status: Resolved (9) Acute CVA (cerebrovascular accident): Status: Acute Reason for Visit Reason for Visit: weakness - fall Hospital Course Hospital Course This is a 84 male with past medical history of CIDP, type 2 diabetes, hypertension, major depressive disorder, generalized anxiety who presents [facility] due to right sided weakness, right facial droop, stuttering of his words, NIH stroke scale 6, neurology consulted, CT head no acute findings, MRI brain showed 12 mm acute ischemia involving the left swenson radiata and posterior limb of left internal capsule, CTA head and neck shows 1 cm acute versus subacute infarct involving the posterior left lentiform nucleus and inferior swenson radiata. Patient was monitored as inpatient, medically managed, overall clinically improved, managed on aspirin, statin, physical therapy, speech therapy, overall his condition slowly improved, will be discharged to long term facility for rehab Patient's hospitalization was complicated by rhabdomyolysis, received IV fluids, overall clinically improved Patient CT scan of the lumbar spine CT lumbar spine CT/CT lumbar spine wo con* [id number] IMPRESSION: 1. No acute lumbar spine fracture. 2. L4-5: Moderate to severe central with bilateral subarticular recess and mild foraminal stenosis. Disc encroachment upon the traversing L5 nerve roots. 3. L3-4: Mild central, subarticular recess and foraminal stenosis. Greater encroachment upon the LEFT traversing L4 nerve root. 4. L2-3: Mild LEFT foraminal stenosis. 5. L5-S1: Mild bilateral foraminal stenosis -Follow-up with primary care provider as outpatient but denies any back pain - He has moderate to severe central canal stenosis could be playing a role for his generalized weakness of his lower extremities - Nonetheless no urinary incontinence, no bowel incontinence, no saddle or perianal anesthesia, no spinal tenderness -Follow-up with primary care, consider follow-up with Dr. Espinal CIDP (chronic inflammatory demyelinating polyneuropathy): -Followed in the outpatient setting by Dr. Jon -Has been on Vyvgart infusions with some improvement in functional status until acute weakness this weekend - I had a detailed discussion with patient, and family about patient's Vyvgart -Patient does not feel that it is helping him anymore -I discussed that he should continue to get these infusions as I feel that they will help his overall generalized weakness and I am worried that because of his CIDP, his generalized weakness will either worsen or be at a standstill, which will hamper his physical therapy for his acute CVA as above -However another confounding issue is is that given how expensive Vyvgart is no local fpc is willing to accept him on this medication -In addition as he is a Evangelical, he does not want to have any IVIG -Given his acute stroke, high-dose steroids are generally avoided -I spoke to Dr. Davis neurology, he was under the opinion that as patient is not a candidate for IVIG, currently not a candidate for high-dose steroids, patient's Vyvgart medication should be continued -After multiple discussions with the patient, caseworkers in the fpc, i t was arranged that patient can get the vyvgart as outpatient, as an outpatient IV infusion, and that family would have to transport him to and from the infusion center -However after detailed discussion with patient and family, for now he does not want to get the by Vyvgart infusions -I had a detailed discussion with him and his family about the morbidity and mortality associated with his CIDP, and not getting Vyvgart infusions, patient and family voiced understanding, all questions answered, he declines for now, but he tells me he will think about it -Patient was discharged to long term facility Physical Exam Const: COMMON NORMALS: no acute distress and patient oriented x3 Resp: COMMON NORMALS: normal respiratory effort, No retractions, No use of accessory muscles and clear to auscultation bilaterally AUSCULTATION: clear to auscultation bilaterally Cardio: COMMON NORMALS: regular rate, regular rhythm, S1 normal heart sound present and S2 normal heart sound present RATE: regular rate RHYTHM: regular rhythm HEART SOUNDS: S1 normal heart sound present and S2 normal heart sound present GI: COMMON NORMALS: Normal to inspection, nondistended, normoactive bowel sounds present and non-tender Extremity: COMMON NORMALS: no pedal edema NARRATIVE EXTREMITY EXAM: Right upper and right lower extremity weakness is improving Neuro: COMMON NORMALS: patient oriented x3 Psych: COMMON NORMALS: mental status grossly normal Discharge Data Studies Completed and Pending Completed Studies During Hospitalization Category Date Time Status CT angio head neck [CT angio headneck* [id number]] Cat Scan 01/02/25 17:[address] head thrombolytic [id number] Stat Cat Scan 01/01/25 11:[address] lumbar spine wo con* [id number] Routine Cat Scan 01/02/25 14:09 Completed CXRP [XR chest 1V portable [id number]] Stat Exams 01/01/25 11:34 Completed XR pelvis 1-2V* [id number] Stat Exams 01/01/25 12:58 Completed MR head wo con* [id number] Routine MRI 01/03/25 16:41 Completed CV carotid duplex BI* [id number] Routine Ultrasound 01/02/25 16:44 [place] [id number] Routine Ultrasound 01/02/25 14:10 Completed CV. echo complete* [id number] Routine Ultrasound 01/02/25 16:44 Completed Pending at discharge Category Date Time Status FL barium swallow modifd [id number] Routine Exams 01/08/25 17:16 Stop Req Radiology Impressions Head CT 01/01/25 11:28 IMPRESSION: 1. No acute intracranial hemorrhage or edema. 2. Mild atrophy and small vessel disease. Notified Kim Padilla MD at 01/01/2025 11:51 AM. Chest X-Ray 01/01/25 11:34 IMPRESSION: No acute chest abnormality. Pelvis X-Ray 01/01/25 12:58 IMPRESSION: No acute abnormality. Lumbar Spine CT 01/02/25 14:09 IMPRESSION: 1. No acute lumbar spine fracture. 2. L4-5: Moderate to severe central with bilateral subarticular recess and mild foraminal stenosis. Disc encroachment upon the traversing L5 nerve roots. 3. L3-4: Mild central, subarticular recess and foraminal stenosis. Greater encroachment upon the LEFT traversing L4 nerve root. 4. L2-3: Mild LEFT foraminal stenosis. 5. L5-S1: Mild bilateral foraminal stenosis. Head/Neck CTA 01/02/25 17:03 IMPRESSION: 1. 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 Patent anterior communicating artery. 2. Stable 1.0 cm acute versus subacute infarct in the posterior left lentiform nucleus and inferior swenson radiata. IMPRESSION: No large artery stenosis or occlusion. REFERENCES: NASCET CRITERIA. The degree of stenosis in the cervical segment of the internal carotid artery is based on NASCET criteria. Normal is no stenosis. Mild is less than 50% stenosis. Moderate is 50-69% stenosis. Severe is 70% to 99% stenosis. Total occlusion is no detectable patent lumen. ADDENDUM: 01/02/25 1394 THIS REPORT CONTAINS FINDINGS THAT MAY BE CRITICAL TO PATIENT CARE. The findings were verbally communicated via telephone conference with Dr Steve Dee at 11:32 PM CDT on 01/02/2025. The findings were acknowledged and understood. Head MRI 01/03/25 16:41 IMPRESSION: 1. 12 mm area acute ischemia involving the LEFT swenson radiata and posterior limb LEFT internal capsule corresponding to the CTa findings. 2. Mild associated edema with the area of infarct. 3. No significant mass effect or midline shift. Laboratory Results WBC 8.54 10^3/uL (3.29-11.43) 01/08/25 05:13 RBC 5.60 10^6/uL (3.85-5.65) 01/08/25 05:13 Hgb 15.90 g/dL (11.27-16.99) 01/08/25 05:13 Hct 50.2 % (37-53) 01/08/25 05:13 MCV 89.6 fl (82-101) 01/08/25 05:13 MCH 28.4 pg (27-33) 01/08/25 05:13 MCHC 31.7 g/dL (30-55) 01/08/25 05:13 RDW 13.4 % (12.1-15.1) 01/08/25 05:13 Plt Count 255 10^3/cmm (157-399) 01/08/25 05:13 MPV 10.4 fL (7.4-10.4) 01/08/25 05:13 Neut % (Auto) 52.2 % 01/08/25 05:13 Lymph % (Auto) 32.4 % 01/08/25 05:13 [facility] % (Auto) 13.0 % 01/08/25 05:13 Eos % (Auto) 1.3 % 01/08/25 05:13 Baso % (Auto) 0.7 % 01/08/25 05:13 Neut # (Auto) 4.46 10^3/uL (1.8-7.7) 01/08/25 05:13 Lymph # (Auto) 2.8 10^3/uL (0.8-4.8) 01/08/25 05:13 [facility] # (Auto) 1.1 10^3/uL (0.2-0.9) H 01/08/25 05:13 Eos # (Auto) 0.1 10^3/uL (0.0-0.8) 01/08/25 05:13 Baso # (Auto) 0.1 10^3/uL (0.0-0.1) 01/08/25 05:13 Nucleated RBC % (auto) 0 % 01/08/25 05:13 Nucleated RBCs # 0.0 /100WBC 01/08/25 05:13 ESR 9 mm/hr (0-10) 01/02/25 05:01 PT 12.70 SECONDS (12.1-14.9) 01/01/25 11:43 INR 0.89 (0.8-1.2) 01/01/25 11:43 APTT 27.0 SECONDS (23.9-36.7) 01/01/25 11:43 Sodium 138 mmol/L (136-145) 01/08/25 05:13 Potassium 4.1 mmol/L (3.5-5.1) 01/08/25 05:13 Chloride 97 mmol/L (98-107) L 01/08/25 05:13 Carbon Dioxide 30 mmol/L (22-29) H 01/08/25 05:13 Anion Gap 15.1 (5-19) 01/08/25 05:13 BUN 19 mg/dL (8-23) 01/08/25 05:13 Creatinine 0.7 mg/dL (0.7-1.2) 01/08/25 05:13 GFR Calculation Not Reportable 01/08/25 05:13 Glucose 180 mg/dL (65-115) H 01/08/25 05:13 POC Glucose 178 mg/dL (70-110) H 01/08/25 06:20 Estimat Average Glucose 146 01/02/25 05:01 Hemoglobin A1c 6.7 % (4.0-6.0) H 01/02/25 05:01 Calculated Osmolality 293 mOsm/kg (285-295) 01/08/25 05:13 Uric Acid 5.9 mg/dL (3.4-7.0) 01/02/25 05:01 Calcium 9.7 mg/dL (8.5-10.5) 01/08/25 05:13 Phosphorus 2.4 mg/dL (2.5-4.5) L 01/02/25 05:01 Magnesium 1.6 mg/dL (1.7-2.3) L 01/02/25 05:01 Total Bilirubin 0.5 mg/dL (0.15-1.2) 01/02/25 05:01 AST 49 U/L (0-40) H 01/02/25 05:01 ALT 24 U/L (0-41) 01/02/25 05:01 Alkaline Phosphatase 106 U/L (40-130) 01/02/25 05:01 Lactate Dehydrogenase 211 U/L (135-225) 01/02/25 05:01 Creatine Kinase 51 U/L (39-308) 01/08/25 05:13 C-Reactive Protein 15.4 mg/L (0.0-4.9) H 01/02/25 05:01 Total Protein 6.5 g/dL (6.6-8.7) L D 01/02/25 05:01 Albumin 4.4 g/dL (3.5-5.2) 01/02/25 05:01 Globulin 2.1 g/dL (1.3-4.6) 01/02/25 05:01 Procalcitonin 0.05 ng/mL (0-0.5) 01/02/25 05:01 TSH 2.39 uIU/mL (0.27-4.20) 01/02/25 05:01 Free T4 0.95 ng/dL (0.82-1.77) 01/02/25 05:01 Free T3 2.7 PG/ML (2.0-4.4) 01/02/25 05:01 Urine Color Yellow (Yellow) 01/01/25 13:57 Urine Appearance Clear (CLEAR) 01/01/25 13:57 Urine pH 5 (5-7) 01/01/25 13:57 Ur Specific [place] 1.020 (1.005-1.030) 01/01/25 13:57 Urine Protein 1+ (Negative) H 01/01/25 13:57 Urine Glucose (UA) Norm (Normal) 01/01/25 13:57 Urine Ketones 2+ (Negative) H 01/01/25 13:57 Urine Blood 2+ (Negative) H 01/01/25 13:57 Urine Nitrate Negative (Negative) 01/01/25 13:57 Urine Bilirubin Neg (Negative) 01/01/25 13:57 Urine Urobilinogen Norm mg/dL (Negative) 01/01/25 13:57 Ur Leukocyte Esterase Negative (Negative) 01/01/25 13:57 Urine RBC 3-5 /hpf (0-2) 01/01/25 13:57 Urine WBC 0-5 /hpf (0-5) 01/01/25 13:57 Ur Squamous Epith Cells 0-5 /hpf (0-5) 01/01/25 13:57 Amorphous Sediment Not Reportable 01/01/25 13:57 Urine Bacteria None seen /hpf (NONE) 01/01/25 13:57 Hyaline Casts 1.21 /lpf 01/01/25 13:57 Urine Opiates Screen Negative ng/mL (Negative) 01/01/25 13:57 Ur Barbiturates Screen Negative ng/mL (Negative) 01/01/25 13:57 Ur Phencyclidine Scrn Negative ng/mL (Negative) 01/01/25 13:57 Ur Amphetamines Screen Negative ng/mL (Negative) 01/01/25 13:57 U Benzodiazepines Scrn Negative ng/mL (Negative) 01/01/25 13:57 Urine Cocaine Screen Negative ng/mL (Negative) 01/01/25 13:57 U Marijuana (THC) Screen Negative ng/mL (Negative) 01/01/25 13:57 Vitals Last Vital Signs Temp 97.6 F 01/08/25 07:41 Pulse 88 01/08/25 07:41 Resp 17 01/08/25 07:41 BP 149/83 01/08/25 07:41 Pulse Ox 91 01/08/25 07:41 O2 Del Method Room Air 01/08/25 07:41 Discharge Plan Discharge Patient Disposition: Home Condition: Stable Prescriptions: New aspirin 81 mg Tablet,Delayed Release (Dr/Ec) 81 mg PO DAILY 30 Days Qty: 30 0RF atorvastatin [Lipitor] 40 mg tablet 40 mg PO DAILY 30 Days Qty: 30 0RF insulin lispro [Humalog U-100 Insulin] 100 unit/mL Solution See Rx Instructions .ROUTE .COMPLEX Qty: 10 0RF Rx Instructions: inject, subcut, 3 times daily, after meals, based on low sliding scale provided Continued nadolol 20 mg tablet 20 mg PO DAILY amlodipine 5 mg tablet 5 mg PO DAILY paroxetine HCl [Paxil] 40 mg tablet 40 mg PO QAM Qty: 30 5RF mirtazapine [Remeron] 30 mg tablet 30 mg PO .at bed Qty: 30 5RF clonazepam [Klonopin] 0.5 mg tablet 0.5 mg PO BID PRN (Reason: anxiety) Qty: 60 5RF hydroxyzine HCl 50 mg tablet 50 mg PO TID PRN (Reason: anxiety) Qty: 90 5RF metformin 500 mg tablet extended release 24 hr 1,000 mg PO DAILY Vyvgart Hytrulo 1,008 mg-11,200 unit/5.6 mL solution 5.6 ml SUBCUT Q7D 28 Days Qty: 5.6 12RF Rx Instructions: 1008 mg/67580 units once a week subcu neomycin-polymyxin B-dexameth 3.5mg/mL-10,000 unit/mL-0.1 % drops,suspension 1 drp ophthalmic (eye) TID gabapentin 300 mg capsule 300 mg PO TID Rx Instructions: TAKE 1 CAPSULE BY MOUTH THREE TIMES DAILY Discharge Orders: Discharge Order (Routine); Ordered 01/08/25 Ordered By: Kimo Perdomo Referrals: Jaswinder Sorensen MD [Primary Care Provider] - Discharge Diet: Cardiac Discharge Activity: Resume usual activity Patient Instructions: Aspirin (By mouth), Atorvastatin (By mouth), Stroke (DC), Opioid Safety, Stroke Stoplight Discharge Attestations Time Spent in Discharge Care*: greater than 30 min Quality Metrics Clinical Quality Measures [ Cerebrovascular Accident { Contraindication to Antithrombotic: None; antithrombotic prescribed; Contraindication to Anticoagulation: Overlap treatment not indicated; Contraindication to Statin: None; Statin prescribed;}] Coding Level of Care Code 97118 Total time (in minutes) for Discharge: 45 Diagnoses Non-traumatic rhabdomyolysis M62.82 Rhabdomyolysis type: non-traumatic Weakness R53.1 CIDP (chronic inflammatory demyelinating polyneuropathy) G61.81 Primary hypertension I10 Hypertension type: primary hypertension History of tachycardia Z87.898 Type 2 diabetes mellitus with hyperglycemia, without long-term current use of insulin E11.65 Diabetes mellitus complication status: with hyperglycemia Diabetes mellitus local company intermodal truck driver insulin use: without local company intermodal truck driver use Generalized anxiety disorder F41.1 Abrasion, right lower leg, initial encounter S80.811A Acute CVA (cerebrovascular accident) I63.9
[2025-01-08 11:59] LABS: Glucose Point of Care 172 mg/dL (70-110)
[2025-01-08 12:00] VITALS: BP 125/79; PULSE 97; RESP 17; TEMP 36.8; O2SAT 93
--- NOTE | 2025-01-08 12:36 | PC.NURSE ---
This nurse gave report to LEODAN Nails at [facility] at 1235. [facility] will be here to get pt between 1245 and 1300 to transport pt to facility.
[2025-01-08 13:02] VITALS: BP 126/80; PULSE 96; O2SAT 94
== END 2025-01-08 13:03 | disposition skilled nursing facility (03) | DRG 65 ==
LOC: ER 14:33 → MEDSURG 14:57
PROVIDERS: Admitting Provider Hospitalist; Emergency Provider Emergency Medicine; PCP Family Medicine; Visit Provider Family Medicine
DX: I63.9 Cerebral infarction, unspecified (principal); G61.81 Chronic inflammatory demyelinating polyneuritis; G81.91 Hemiplegia, unspecified affecting right dominant side; M62.82 Rhabdomyolysis; R29.810 Facial weakness; R47.89 Other speech disturbances; R29.702 NIHSS score 2; I10 Essential (primary) hypertension; R00.0 Tachycardia, unspecified; E11.65 Type 2 diabetes mellitus with hyperglycemia; F41.1 Generalized anxiety disorder; F32.9 Major depressive disorder, single episode, unspecified; Z79.84 Long term (current) use of oral hypoglycemic drugs; S80.811A Abrasion, right lower leg, initial encounter; W18.30XA Fall on same level, unspecified, initial encounter; H02.402 Unspecified ptosis of left eyelid
CPT/HCPCS: 36415; 36416; 70450; 70496; 70498; 70551; 71045; 72131; 72170; 80048; 80053; 80306; 81001; 82550; 82962; 83036; 83615; 83735; 84100; 84145; 84439; 84443; 84481; 84550; 85025; 85610; 85651; 85730; 86140; 92507; 92523; 92526; 92610; 93005; 93306; 93880; 93970; 96372; 97110; 97161; 97167; 97530; 97535; 99285; J0696; J1100; J1650; J1815; J7030; J9999